=== PATIENT | male | born 1945 | race Caucasian/White ===

== ENCOUNTER 2025-04-28 03:30 | Emergency (ER) | payer MEDICARE, OTHER, SELFPAY ==
--- NOTE | 2025-04-28 04:35 | ED.ALLEREA ---
HPI - Allergic Reaction General Chief complaint: Allergic Reaction Stated complaint: Allergic Reaction History of Present Illness HPI narrative: Patient seen and examined during EMR down time in the emergency department. Please see physical paper charting during down time for complete dictation of patient's care and clinical course. Review of Systems Review of Systems: As reviewed in down time EMR charting Exam Narrative: GENERAL: [Well-appearing, well-nourished, and in no acute distress.] HEAD: [Normocephalic, atraumatic.] EYES: [PERRLA and EOMI.] ENT: Nares clear, no rhinorrhea or epistaxis. Mucous membranes moist. NECK: Supple. CHEST: [Clear to auscultation. No respiratory distress.] HEART: [Regular rate and rhythm]. No murmur heard. [Normal peripheral pulses.] ABDOMEN: [Soft, nondistended], [nontender], [No rigidity or guarding] EXTREMITIES: Normal range of motion. [No edema.] SKIN: Beefy red raised rash around the face anteriorly and frontal scalp. Does not extend to the back of the head or neck, does not extend to the neck. No other urticarial rash anywhere on the body. NEURO: [No focal deficits]. Alert and oriented [x3.] PSYCH: [Normal mood and affect.] MDM - Allergic Reaction MDM Narrative Medical decision making narrative: Patient seen and examined during EMR down time in the emergency department. Please see physical paper charting during down time for complete dictation of patient's care and clinical course. Discharge Plan Discharge Clinical Impression: Contact dermatitis, Allergic reaction Patient Disposition: Home Condition: Stable Instructions: Antibiotic Form, Contact Dermatitis (ED), Acute Rash (ED) Additional Instructions: Continue taking the prednisone once daily for the next 5 days as well as the diphenhydramine cream applied several times a day for itchiness and redness. 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 Return with any worsening or emergent concerns. Patient Language: Guatemalan Prescriptions: New prednisone 50 mg tablet 50 mg PO DAILY 5 Days Qty: 5 0RF Anti-Itch(diphenhyd) with Zinc 1-0.1 % cream 1 applic topical QID PRN (Reason: itching) Qty: 28 0RF Follow-up/Referrals: UNKNOWN,DOCTOR [Non-Staff] Time of Disposition: 05:52
[2025-04-28] MEDS: predniSONE 40 MG, predniSONE 10 MG 50 MG PO (05:19)
[2025-04-28] MEDS: DIPHENHYDRAMINE 1%/ZINC 0.1% CREAM 30 GM TUBE 1 APPLIC TOPICAL (05:20)
[2025-04-28 06:24] VITALS: O2SAT 100
== END 2025-04-28 06:28 | disposition home or self-care (01) ==
PROVIDERS: Emergency Provider Student in an Organized Health Care Education/Training Program
DX: L23.3 Allergic contact dermatitis due to drugs in contact with skin (principal); T49.0X5A Adverse effect of local antifungal, anti-infective and anti-inflammatory drugs, initial encounter
CPT/HCPCS: 99283; A9270; J7512

== ENCOUNTER 2025-06-23 09:36 | Emergency (ER) | payer MEDICARE, OTHER, SELFPAY ==
[2025-06-23] VITALS (31 sets, daily range): BP systolic 100–142; BP diastolic 62–88; PULSE 77–115; RESP 17–28; TEMP 37.5–38.1; O2SAT 87–100
--- NOTE | ~2025-06-23 | CT_ITS ---
EXAM/PROCEDURE: CT abdomen pelvis w con HISTORY: diffuse abd pain, fever COMPARISON: None available. TECHNIQUE: IV contrast enhanced CT of the abdomen and pelvis performed. FINDINGS: Minimal atelectatic or fibrotic changes in the lung bases which are otherwise clear. Heart size normal with no pericardial effusion. Coronary artery calcifications seen. In the abdomen and pelvis, the bowel gas pattern is nonobstructive with no free air free fluid or pneumatosis seen. No hydroureteronephrosis. Several small bilateral renal cysts. Adrenal glands visualized ureters and urinary bladder unremarkable. Indwelling penile prosthesis fluid-filled reservoir in the lateral right pelvis. No grossly inflamed appendix. No AAA. No gross CT evidence of pancreatitis or biliary ductal dilatation. Cholecystectomy. Several small cysts appearing lesions resonance throughout the liver. Stomach is fluid-filled with no gross acute abnormality seen. No bulky mesenteric or retroperitoneal lymphadenopathy or masses seen. Prostate diminutive or removed. Moderate amount of stool extends to the cecum. Fluid-filled small bowel noted which are nondistended. IMPRESSION: No focal acute findings to explain patient's symptoms. Several chronic appearing findings as above. Several small liver cystic appearing lesions most likely represent benign cysts in this patient has known history of malignancy.. Reviewed, dictated and finalized at location A. TERM CARE ADMINISTRATOR IMPRESSION: No focal acute findings to explain patient's symptoms. Several chronic appearin g findings as above. Several small liver cystic appearing lesions most likely r epresent benign cysts in this patient has known history of malignancy..
--- NOTE | ~2025-06-23 | CT_ITS ---
EXAMINATION: CTA chest PE protocol DATE: 06/23/2025 11:55 INDICATION: Rule out PE TECHNIQUE: Computed tomography angiography (CTA) of the chest was performed with 100 mL Omnipaque-350 intravenous contrast timed to evaluate the pulmonary arteries. Coronal maximum intensity projection 3D-reconstructions were created by the technologist. The dose-length product was 850.87 mGy-cm. COMPARISON: None. FINDINGS: Exam somewhat limited with most of the contrast in the left-sided system or aorta, as well as moderately extensive respiratory motion artifact. No central or large pulmonary emboli. Scattered fibrotic and atelectatic changes. Lungs are otherwise clear. Central large airways are patent. Borderline cardiomegaly. No significant pericardial effusion or bulky lymphadenopathy. Degenerative changes throughout the bones. Bones appear intact. No process seen in the visualized portions of the upper abdomen or extrathoracic soft tissues. Low-density lesion measuring 2 cm in the left lobe of the liver image 189 series 3 noted. IMPRESSION: 1. No central or large pulmonary embolus. 2. No gross acute intrathoracic abnormality. 3. Other findings as above. See also report for CT abdomen pelvis and date. Reviewed, dictated and finalized at location A. DESIGNER
--- NOTE | ~2025-06-23 | XR_ITS ---
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 Technique: 2 views obtained. Findings: The lungs are clear, no effusion. No pneumothorax. Heart is normal size. Mediastinal and hilar contours are within normal limits. Bony thorax no acute abnormality. Impression: No acute cardiopulmonary abnormality. Reviewed, dictated and finalized at location P. LINE ASSEMBLER Impression: No acute cardiopulmonary abnormality.
--- NOTE | 2025-06-23 09:39 | ECG_ITS ---
Test Date: 2025-06-23 09:49:55 Measurements Intervals Ovando Rate: 112 P: 14 VA: 194 QRS: -78 QRSD: 104 T: 50 QT: 314 QTc: 430 Interpretive Statements SINUS TACHYCARDIA LEFT AXIS DEVIATION INCOMPLETE RIGHT BUNDLE BRANCH BLOCK POSSIBLE ANTERIOR MYOCARDIAL INFARCTION , OF INDETERMINATE AGE ABNORMAL ECG No previous ECG available for comparison Electronically Signed On 06-23-2025 09:58:34 AIRPORT ATTENDANT by Sergio Urena D.O.
--- NOTE | 2025-06-23 10:02 | ED_ITS ---
HPI - General Adult General Chief complaint: Weakness Stated complaint: shaking all night Time Seen by Provider: 06/23/25 10:01 History of Present Illness HPI narrative: 80-year-old male presents emergency department with generalized body aches and subjective fevers for about 12 hours. He denies any cough or shortness of breath endorses some vague abdominal discomfort and nausea but no vomiting. Denies any urinary symptoms. Endorses chills but no objective fevers. Denies any rashes no headache no sore throat no sick contacts. Patient has a history of high blood pressure seizure disorder [id number] diabetes. No recent changes to his medications. Related Data Allergies Allergy/AdvReac Type Severity Reaction Status Date / Time codeine Allergy Unknown Verified 06/23/25 09:48 Review of Systems 2 Review of Systems: All systems reviewed & are unremarkable except as noted in HPI and below Exam 2 Narrative: EXAMINATION OF ORGAN SYSTEMS/BODY AREAS: Constitutional: Vital signs per nursing, vital signs notable for tachycardia. GENERAL:[No acute distress, non-toxic appearing.] HEAD: Normal with no signs of head trauma. EYES: EOMI, conjunctiva normal ENT: Hearing grossly intact LUNGS: Nonlabored breathing. HEART: Tachy rate regular rhythm brisk cap refill 2+ radial pulses ABD: Abdomen is soft slightly distended moderate reproducible tenderness throughout without any rebound or guarding. No flank tenderness. EXT: Normal range of motion SKIN: [No rashes or lesions.] NEURO: [Alert. No gross focal sensory or strength deficits.] PSYCH: Normal affect Course Vital Signs Vital signs: Vital Signs Temperature 37.6 C H 06/23/25 09:46 Pulse Rate 115 H 06/23/25 09:46 Respiratory Rate 18 06/23/25 09:46 Blood Pressure 139/86 06/23/25 09:46 Pulse Oximetry 93 06/23/25 09:46 Oxygen Delivery Room Air 06/23/25 09:46 Temperature 37.5 C 06/23/25 13:23 Pulse Rate 82 06/23/25 13:16 Respiratory Rate 26 H 06/23/25 13:16 Blood Pressure 125/69 06/23/25 13:16 Pulse Oximetry 96 06/23/25 13:16 Oxygen Delivery Nasal Cannula 06/23/25 10:47 Oxygen Flow Rate 3 06/23/25 10:47 MDM Differential Diagnosis Differential Diagnosis: A 80-year-old male presents with essentially rigors chills generalized fatigue. Given his slight abdominal discomfort and concern for intra-abdominal pathology such as diverticulitis versus perforated viscus versus less likely an obstructive process. Also on the differential is a viral syndrome specifically influenza games for Dr. Carrillo. Obtain viral swabs basic workup blood cultures treat him symptomatically with antipyretics IV fluids and obtain CT abdomen pelvis with IV contrast plan for evaluation after work treatment. Results and multiple re-evaluations Patient's D-dimer was positive I did do a CTA of his chest which was negative for pulmonary embolism. His initial lactic was 5 which I suspect is a type B lactic acidosis. Repeat is normal. He feels much improved and wants to go home he is no longer tachycardic he is no longer required supplemental oxygen. He does have a 10-20 years pack smoking history. I did offer hospital admission for his weakness but he prefers to go home and given systemic symptoms his leukocytosis otorrhea for atypical pneumonia with a Z-Kenny. Strict return precautions discussed and otherwise understands verbalizes not hypoxic on room air his discharge is poor baseline level of health Medical Records I have reviewed the following patient records and this information was taken into consideration when formulating the assessment and plan.: previous labs and previous ER visits Lab Data MDM Lab Attestation statement: I personally reviewed the patient's lab results. 06/23/25 09:59 06/23/25 09:59 Labs: Lab Results 06/23/25 06/23/25 06/23/25 Range/Units 09:59 12:10 12:18 WBC 6.0 (4.5-10.0) K/mm3 RBC 5.88 (4.6-6.20) M/mm3 Hgb 17.4 (14.0-18.0) g/dL Hct 49.9 (42.0-52.0) % MCV 84.9 (80-100) fl MCH 29.6 (26-34) pg MCHC 34.9 (32-36) g/dl RDW 13.8 (11.5-14.5) % Plt Count 185 (150-375) k/mm3 MPV 11.1 H (7.4-10.4) fl Immature Gran % (Auto) 0.3 (0-0.5) % Neut % (Auto) 84.8 H (45.5-73.1) % Lymph % (Auto) 13.1 L (18.3-44.2) % Bucks % (Auto) 1.3 L (2.6-8.5) % Eos % (Auto) 0.2 (0-4.4) % Baso % (Auto) 0.3 (0.2-1.2) % Lymph # (Auto) 0.78 L (0.9-3.2) K/mm3 Bucks # (Auto) 0.1 (0.1-0.6) K/mm3 Eos # (Auto) 0.0 (0-0.3) K/mm3 Baso # (Auto) 0.0 (0.0-0.1) K/mm3 Abs Immat Gran (auto) 0.02 (0.00-0.031) K/mm3 Absolute Neuts (auto) 5.1 (1.3-6.7) K/mm3 Absolute Nucleated RBC 0.000 (0.0-0.012) K/mm3 Nucleated RBC % 0.0 (0.0-0.2) % D-Dimer 0.91 H (<0.48) ug/mL Sodium 139 (137-145) mmol/L Potassium 3.9 (3.4-5.0) mmol/L Chloride 101 (98-107) mmol/L Carbon Dioxide 26 (22-30) mmol/L Anion Gap 12 (4-12) mmol/L BUN 18 (9-20) mg/dL Creatinine 1.19 (0.7-1.3) mg/dL Estim Creat Clear Calc 51 ml/min Estimated GFR 59 (59 - ) Glucose 166 H (65-110) mg/dL Lactic Acid 5.3 H* 1.9 (0.7-2.0) mmol/L Calcium 9.8 (8.4-10.2) mg/dL Total Bilirubin 1.0 (0.2-1.3) mg/dL AST 39 (17-59) U/L ALT 60 H (6-50) U/L Alkaline Phosphatase 71 (38-126) U/L Total Protein 7.8 (6.3-8.2) g/dL Albumin 4.9 (3.5-5.1) g/dL Urine Color Yellow (Yellow) Urine Appearance Clear (Clear) Urine pH 5.0 (5.0-9.0) Ur Specific Ruso > 1.045 H (1.001-1.035) Urine Protein Negative (Negative) mg/dL Urine Glucose (UA) 3+ H (Negative) mg/dL Urine Ketones 2+ H (Negative) mg/dL Ur Blood (Man) Negative (Negative) Urine Nitrate Negative (Negative) Urine Bilirubin Negative (Negative) Urine Urobilinogen 0.2 (<2.0) mg/dL Leukocyte Esterase Rfl Negative (Negative) YARA/UL Influenza A (RT-PCR) Negative (Negative) Influenza B (RT-PCR) Negative (Negative) RSV (RT-PCR) Negative (Negative) SARS-CoV-2 RNA (RT-PCR) Negative (Negative) Imaging Data Attestation: I personally reviewed and interpreted this imaging study as follows: My impression: Chest x-ray shows no evidence of focal infiltrate or free air. Normal cardiac silhouette per my interpretation. Radiologist's impression: ITS Impressions Chest X-Ray 06/23/25 10:20 Impression: No acute cardiopulmonary abnormality. Abdomen/Pelvis CT 06/23/25 11:06 IMPRESSION: No focal acute findings to explain patient's symptoms. Several chronic appearing findings as above. Several small liver cystic appearing lesions most likely represent benign cysts in this patient has known history of malignancy.. Chest CTA 06/23/25 11:59 IMPRESSION: 1. No central or large pulmonary embolus. 2. No gross acute intrathoracic abnormality. 3. Other findings as above. See also report for CT abdomen pelvis and date. ECG Data EKG #1: Attestation: I personally reviewed and interpreted this ECG as follows: Interpretation: Twelve lead EKG per my interpretation shows sinus tachycardia rate 112 beats per minute. Left axis deviation. Incomplete right bundle-branch block. Otherwise no evidence of ST segment elevation or depression. Overall impression abnormal EKG no prior for comparison. Discharge Plan Discharge Clinical Impression: Weakness, Fever, Walking pneumonia Patient Disposition: Home Condition: Stable Instructions: Antibiotic Form, Community Acquired Pneumonia (ED), Fatigue (ED) Patient Language: Bahraini Prescriptions: New azithromycin 250 mg tablet See Rx Instructions .ROUTE .COMPLEX Qty: 6 0RF Rx Instructions: For 250 mg dose pack: take 500 mg today (day 1), then 250 mg for 4 days (days 2-5) No Action prednisone 50 mg tablet 50 mg PO DAILY 5 Days Qty: 5 0RF Anti-Itch(diphenhyd) with Zinc 1-0.1 % cream 1 applic topical QID PRN (Reason: itching) Qty: 28 0RF Follow-up/Referrals: PHYSICIAN NOT ON STAFF,NONSTAFF [Non-Staff] Time of Disposition: 14:05
[2025-06-23 10:09] LABS: Hematocrit 49.9 % (42.0-52.0); Hemoglobin 17.4 g/dL (14.0-18.0); Immature Granulocyte Percent A 0.3 % (0-0.5); Lymphocytes Absolute Auto 0.78 K/mm3 (0.9-3.2); Mean Corpuscular HGB Conc 34.9 g/dl (32-36); Mean Corpuscular Hemoglobin 29.6 pg (26-34); Mean Corpuscular Volume 84.9 fl (80-100); Nucleated Red Blood Cells Absolute Auto 0.000 K/mm3 (0.0-0.012); Nucleated Red Blood Cells Perc 0.0 % (0.0-0.2); Platelet Count Result 185 k/mm3 (150-375); Red Blood Count 5.88 M/mm3 (4.6-6.20); White Blood Count 6.0 K/mm3 (4.5-10.0)
[2025-06-23 10:22] LABS: Alanine Aminotransferase 60 U/L (6-50); Albumin Level 4.9 g/dL (3.5-5.1); Alkaline Phosphatase 71 U/L (38-126); Anion Gap 12 mmol/L (4-12); Aspartate Amino Transferase 39 U/L (17-59); Bilirubin,Total 1.0 mg/dL (0.2-1.3); Blood Urea Nitrogen 18 mg/dL (9-20); Calcium 9.8 mg/dL (8.4-10.2); Carbon Dioxide 26 mmol/L (22-30); Chloride 101 mmol/L (98-107); Estimated CRCL calculation 51 ml/min; Estimated Glomerular Filt Rate 59; Glucose 166 mg/dL (65-110); Potassium 3.9 mmol/L (3.4-5.0); Sodium 139 mmol/L (137-145); Total Protein 7.8 g/dL (6.3-8.2)
[2025-06-23 10:43] LABS: Influenza A QL RT-PCR Negative (Negative); Influenza B QL RT-PCR Negative (Negative); RSV RNA, RT-PCR Negative (Negative); SARS-CoV-2 RNA PCR Negative (Negative)
[2025-06-23] MEDS: SODIUM CHLORIDE 0.9% IV 1,000 ML 999 ML IV CONT (11:19)
[2025-06-23] MEDS: KETOROLAC 30 MG/ML VIAL (*BKC) IV PUSH (11:19)
[2025-06-23] MEDS: ACETAMINOPHEN 500 MG TABLET 1000 MG PO (12:09)
[2025-06-23 12:26] LABS: Add Urine Microscopic? NO; Appearance Urine Clear (Clear); Glucose Urine UA 3+ mg/dL (Negative); Leukocyte Esterase Ur Negative LEU/UL (Negative); Nitrate Urine Negative (Negative); Specific Grav Ur > 1.045 (1.001-1.035)
== END 2025-06-23 15:47 | disposition home or self-care (01) ==
PROVIDERS: Emergency Provider Emergency Medicine; PCP Student in an Organized Health Care Education/Training Program
DX: J18.9 Pneumonia, unspecified organism (principal); R53.1 Weakness; Z20.822 Contact with and (suspected) exposure to COVID-19; I10 Essential (primary) hypertension; E11.9 Type 2 diabetes mellitus without complications; G40.909 Epilepsy, unspecified, not intractable, without status epilepticus; Z87.891 Personal history of nicotine dependence; R00.0 Tachycardia, unspecified; I45.10 Unspecified right bundle-branch block; R94.31 Abnormal electrocardiogram [ECG] [EKG]; K86.9 Disease of pancreas, unspecified; K76.9 Liver disease, unspecified
CPT/HCPCS: 36415; 71046; 71275; 74177; 80053; 81003; 83605; 85025; 85380; 87637; 93005; 96361; 96374; 99284; A9270; J1885; J7030; Q9967

== ENCOUNTER 2025-06-24 14:44 | Inpatient (IN) | payer MEDICARE, OTHER, SELFPAY ==
[2025-06-24] VITALS (18 sets, daily range): BP systolic 89–162; BP diastolic 52–90; PULSE 67–153; RESP 14–35; TEMP 36.5–37.8; O2SAT 89–97; BMI 33.3
--- NOTE | ~2025-06-24 | MR_ITS ---
EXAMINATION: MR MRCP wo con/w 3D wo ind pp DATE: 06/25/2025 12:40 INDICATION: Cystic pancreatic lesion. TECHNIQUE: Magnetic resonance imaging (MRI) of the abdomen was performed without intravenous contrast. Thick-slab T2-weighted FSE images were obtained for magnetic resonance cholangiopancreatography (MRCP). Maximum intensity projection 3-D reconstructions of the volumetric data were created by the technologist. COMPARISON: CT 06/24/2025 FINDINGS: ABDOMEN MRI: There is diffuse hepatic steatosis. There are cysts in the liver measuring up to 9 mm. There is a 2.1 cm cystic mass with a dependent material in left hepatic lobe. The gallbladder is absent. The spleen is normal. There is a 10 mm cyst in the tail of the pancreas. The adrenal glands are normal. There are cysts in the kidneys measuring up to 14 mm on the left. There is a 10 mm hemorrhagic cyst in right kidney. There are no dilated loops of bowel. There are no pathologically enlarged lymph nodes. There is no free intraperitoneal fluid. ABDOMEN MRCP: The common duct is normal and measures 5 mm. No choledocholithiasis. IMPRESSION: 1. Diffuse hepatic steatosis. 2. 2.1 cm cystic mass in left hepatic lobe. The differential diagnosis includes abscess, hemorrhagic cyst, and metastatic disease. 3. 10 mm low-risk cystic lesion of the pancreas, likely benign. Reviewed, dictated and finalized at location E. TURNER
--- NOTE | ~2025-06-24 | XR_ITS ---
EXAMINATION: XR chest 1V portable COMPARISON: No comparisons available. HISTORY: sepsis? FINDINGS: The lungs are clear, no effusion. No pneumothorax. Heart is normal size. Mediastinal and hilar contours are within normal limits. Bony thorax no acute abnormality. Miscellaneous: None Impression: No acute cardiopulmonary abnormality. Reviewed, dictated and finalized at location P. UREMENT ANALYST Impression: No acute cardiopulmonary abnormality.
--- NOTE | ~2025-06-24 | CT_ITS ---
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 TECHNIQUE: CTA scan with 3D Reconstructions of the chest, abdomen and pelvis was performed with contrast Isovue 300, 92cc injected IV. One or more of the following dose reduction techniques were used: automated exposure control, adjustment of the mA and/or kV according to patient size, use of iterative reconstruction technique. Unless otherwise stated, incidental findings do not require dedicated follow up imaging FINDINGS: CT chest: No significant coronary calcification is present ([id number]) LUNGS: No tracheomalacia. No bronchiectasis. Minimal emphysematous changes. No significant pulmonary fibrotic changes. No contusion or pneumothorax. Contrast bolus is limited but there is no gross central pulmonary embolism identified. Punctate calcified splenic granulomas. HEART AND PERICARDIUM: Within normal limits. AORTA: There are atherosclerotic changes of the aorta without dissection. MEDIASTINUM: Unremarkable. THYROID: The thyroid is unremarkable. CT abdomen: LIVER: Nonspecific mild heterogeneity of the liver. Within the left lobe liver there is a complex lesion measuring 2 x 2.5 cm with suggestion of peripheral enhancement. SPLEEN: Heterogeneity of the spleen.. KIDNEYS: Right Kidney: Unremarkable. No calculi. No hydronephrosis. Left Kidney: Left kidney midpole simple appearing renal cyst 1 x 1 cm. ADRENAL GLANDS: Unremarkable. PANCREAS: Within the pancreatic tail there is a cystic lesion measuring 5 x 6 mm. Mild atrophy of the pancreas. GALLBLADDER/BILIARY: Post cholecystectomy. STOMACH AND ESOPHAGUS: Small hiatal hernia. The stomach is decompressed. BOWEL/MESENTERY: Moderate fecal content. Moderate diverticulosis. No colitis or diverticulitis. Appendix normal. Mesentery normal. No thickened or dilated loops of small bowel. RETROPERITONEUM: Unremarkable AORTA/VASCULATURE: Normal caliber aorta. No dissection. The major aortic tributaries appear unremarkable. FREE FLUID OR FREE AIR: No free fluid.. CT pelvis: SOLID ORGANS/REPRODUCTIVE: Post prostatectomy. BLADDER: Within normal limits. LYMPHADENOPATHY: No lymphadenopathy. OSSEOUS STRUCTURES: There are no sclerotic or lytic lesions identified. OVERLYING SOFT TISSUES: Small fat-containing umbilical hernia. The soft tissues demonstrate partially imaged probable penile prosthetic implant. IMPRESSION: 1. Complex left lobe liver lesion, no abscess is not excluded. 2. 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 There is no evidence of pancreatitis. 3. Contrast-enhanced MRI is recommended to assess Reviewed, dictated and finalized at location P. BED KNITTER
--- OUTSIDE RECORDS SUMMARY | 2025-06-24 14:46 | XMS_ITS | Encounter Summary ---
Author Organization [facility] Address [address] [place] [address] Phone Care Team Providers Care Storage Architect Name Role Phone Rosalie Valencia APRN, CLIENT APPLICATION SUPPORT SPECIALIST Primary Care P rovashtider Roni Arevalo APRN, CLIENT APPLICATION SUPPORT SPECIALIST Unavailable Fili Márquez MD Unavailable [phone] Tung Connelly PAC Unavailable [phone] Reason for Visit * Reason Comments Medication Refill Encounter Details Date Type Department Care Team (Late st Contact Info) Description 08/20/2020 Refill [facility] [address] [place] [address] Billie Solorzano Milady, PAC [address] [place] [address] Medication Refill Social History Tobacco Use Types Packs/Day Years Used Date Smoking Tobacco: Former Cigarettes 1 23 1 08/19/1961 - 12/25/1984 Smokeless Tobacco: Never Alcohol Use Standard Drinks/Week Comments No 0 (1 standard drink = 0.6 oz pur e alcohol) PHQ-2 Answer Date Recorded Total Score - Questions 1-9 0 10/11 Education Answer Date Recorded What is the highest level of school you have completed or the highest degree you have received? 12th grade 06/11/2020 Sexually Active Control Partners Comments Not Currently Female Sex and Gender Information Value Date Recorded Sex Assigned at Not on file Legal Sex Male 7:56 PM CDT Gender Identity Male 04/28/2023 6:50 PM CDT Sexual Orientation Straight 04/28/2023 6: 50 PM CDT documented as of this encounter Miscellaneous Notes * Telephone Encounter - Antwan Davison CMA - 08/20/2020 9:39 AM JUNIOR BUSINESS ANALYST Not a GI medication, forwarded to primary OR BUSINESS ANALYST documented in this encounter Plan of Treatment Upcoming Encounters Date Type Department Care Team (Late st Contact Info) Description 03/16/2026 2:00 PM CDT Office Visit [facility] [address] [place] [address] Fili Márquez MD [address] [address] documented as of this encounter Visit Diagnoses Diagnosis Mixed hyperlipidemia documented in this encounter Additional Health Concerns Assessment Noted Time PHQ-9 Depression Total Score: 0 10/21/19 20 10:00 AM CDT documented as of this encounter Care Teams Storage Architect Relationship Specialty Start Date End Date Rosalie Valencia APRN, CNP [address] [place] [address] PCP - General Advanced Practice Nurse 06/12/20 Roni Arevalo APRN, CNP [address] [place] [address] Nurse Practitioner Advanced Practice Nurse 08/19/22 Fili Márquez MD [address] [address] Consulting Physician Urology 10/28/22 Tung Connelly, PAC [address] [address] Physician Pediatric Registered Nurse Physician Pediatric Registered Nurse 11/25/23 documented as of this encounter
--- OUTSIDE RECORDS SUMMARY | 2025-06-24 14:46 | XMS_ITS | Clinical Summary ---
Author Organization [facility] Address [address] [facility], [facility] [address] [place] [address] Phone Care Team Providers Care Cruise Director Name Role Phone Rosalie Valencia APRN, ENDS DOWN CHECKER Primary Care P rovider Roni Arevalo APRN, ENDS DOWN CHECKER Unavailable Fili Márquez MD Unavailable [phone] Tung Connelly PAC Unavailable [phone] Allergies Active Allergy Reactions Criticality Noted Date Comments Codeine Other (see Comments) Medium 08/11/2016 Feels weird Medications calcium 500 MG Tablet Take 500 mg by mouth daily. Active Aspirin 81 MG Tablet Take 81 mg by mouth daily. Active diphenhydrAMINE (BENADRYL) 25 MG Capsule Take 25 mg by mouth nightly. Active fluticasone (FLONASE) 50 MCG/ACT SuspensionIndicati ons:Right ear pain,Sinus congestion 1-2 Sprays by Nasal route daily. Use in each nostril as directed. 15.8 mL 1 03/05/20 Active Additional Information Patient taking differently:1-2 [place] NasalDAILY PRN, Use in each nostril as directed., Reported on 03/10/2025 propranolol (INDERAL) 10 MG TabletIndications: Anxiety Take 1 Tablet by mouth 3 times daily as needed for Other (Anxiety). 90 Tablet 06/17/20 22 Active Additional Information Patient taking differently:10 mg OralPRN, Other, Anxiety, Reported on 03/10/2025 Multiple Vitamin (MULTIVITAMIN PO) Take by mouth. Active docusate sodium (Colace) 100 MG Capsule Take 1 Capsule by mouth 2 times daily. 60 Capsule 01/10/20 23 Active famotidine (PEPCID) 40 MG Tablet Take 40 mg by mouth daily. 01/25/20 24 Active celecoxib (CeleBREX) 100 MG Capsule Take 1 Capsule by mouth daily. 90 Capsule 1 03/18/20 24 Active atorvastatin (LIPITOR) 20 MG TabletIndications: Mixed hyperlipidemia Take 1 Tablet by mouth daily. 90 Tablet 1 03/18/20 24 Active amLODIPine (NORVASC) 5 MG TabletIndications: Primary hypertension Take 1 Tablet by mouth daily. 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 HTN (hypertension) 08/11/2016 Moderate obesity 08/11/2016 Hyperglycemia 08/11/2016 Resolved Problems Problem Noted Date Diagnosed Date Resolved Date Acute biliary pancreatitis w ithout infection or necrosis 06/18/2020 01/29/2022 Acute cholecystitis 06/18/2020 01/30/20 22 BMI 34.0-34.9,adult 05/05/2018 01/30/20 22 Prostate cancer 12/11/2017 06/05/2021 Immunizations Immunization Administration Dates Next Due Covid-19, Mrna, Lnp-s, Bival ent, Moderna, 50 Mcg or 25 mcg dose 03/19/2022 Covid-19, Mrna, Lnp-s, PF, 1 00 mcg/0.5 mL Dose (Moderna) 10/15/2021,09/22/2020,08/25/2020 Influenza Vaccine greater than 3 yrs 04/12/2021 Influenza Vaccine, Quadrivalent, PF 04/19/2020,0 04/02/2019,04/19/2018 Influenza, High-dose, Quadrivalent 04/12/2021 Influenza, Quadrivalent, Adjuvanted 04/20/2023,0 03/19/2022 Influenza, Trivalent, Adjuvanted, PF 03/17/2024 Influenza, high-dose, trivalent, PF 04/07/2017,1 ,04/13/2015 PUR FLU HIGH DOSE (FLUZONE) 08/11/2016 Pneumococcal Vaccine - 13 Valent 04/17/2015,04/12 Pneumococcal Vaccine Adult - 23 Valent 1,04/21/2010,05/02/2005 Pneumococcal conjugate PCV20 , polysaccharide [id number] conjugate, adjuvant, PF 10/26/2023 TDAP Vaccine 05/05/2018 Zoster Vaccine Recombinant 12/04/2023,09/07/2023 Zoster Vaccine, live 05/07/2012 Family History Medical History Relation Name Comments No Known Problems Daughter 1 No Known Problems Daughter 2 Prostate Cancer Father Skin Cancer Father No Known Problems Maternal Grandfather No Known Problems Maternal Grandmother Diabetes Mother Heart Disease Mother No Known Problems Other No Known Problems Paternal Grandfather No Known Problems Paternal Grandmother Colon Cancer Paternal Uncle Breast Cancer Sister 1 No Known Problems Sister 2 No Known Problems Sister 3 No Known Problems Son 1 No Known Problems Son 2 No Known Problems Son 3 Relation Name Status Comments Daughter 1 Alive Daughter 2 Alive Father Maternal Grandfather Maternal Grandmother Mother Other Paternal Grandfather Paternal Grandmother Paternal Uncle Sister 1 Alive Sister 2 Alive Sister 3 Alive Son 1 Alive Son 2 Alive Son 3 Alive Social History Tobacco Use Types Packs/Day Years Used Date Smoking Tobacco: Former Cigarettes 1 23 1 08/19/1961 - 12/25/1984 Smokeless Tobacco: Never Tobacco Cessation:Counseling Given: Not Answered Alcohol Use Standard Drinks/Week Comments No 0 (1 standard drink = 0.6 oz pur e alcohol) [facility] Utilities Answer Date Recorded In the past 12 months has e [employer], gas, oil, or water company threatened to shut off services in your home? No 09/05/2023 Social Connection and Isolation Panel Answer Date Recorded In a typical week, how many times do you talk on the phone with family, friends, or neighbors? More than three times a week 09/05/2023 How often do you get togethe r with friends or relatives? Three times a week 09/05/2023 How often do you attend chur or anglican services? More than 4 times per year 09/05/2023 Do you belong to any clubs o r organizations such as congregation groups, unions, fraternal or athletic groups, or school groups? Yes 09/05/2023 How often do you attend meet ings of the clubs or organizations you belong to? More than 4 times per year 09/05/2023 Are you , , di vorced, , never , or living with a partner? 09/05/2023 AUDIT-C Answer Date Recorded Q1: How often do you have a drink containing alcohol? Monthly or less 09/05/2023 Q2: How many drinks containi ng alcohol do you have on a typical day when you are drinking? Patient does not drink Q3: How often do you have si x or more drinks on one occasion? Never 09/05/2023 Overall Financial Resource Strain (CARDIA) Answe r Date Recorded How hard is it for you to pa y for the very basics like food, housing, medical care, and heating? Not hard at all 09/05/2023 PHQ-2 Answer Date Recorded Total Score - Questions 1-9 0 10/11 [facility] - Occupational Stress Questionnaire Answer Date Recorded Do you feel stress - tense, restless, nervous, or anxious, or unable to sleep at night because your mind is troubled all the time - these days? Only a little 09/05/2023 Exercise Vital Sign Answer Date Recorde d On average, how many days pe r week do you engage in moderate to strenuous exercise (like a brisk walk)? 6 days 09/05/2023 On average, how many minutes do you engage in exercise at this level? 30 min 09/05/2023 Hunger Vital Sign Answer Date Recorded Within the past 12 months, y ou worried that your food would run out before you got the money to buy more. Never true 09/05/19 Within the past 12 months, t he food you bought just didn't last and you didn't have money to get more. Never true 09/05/2023 PRAPARE - Transportation Answer Date Re corded In the past 12 months, has l ack of transportation kept you from medical appointments or from getting medications? No 08/14 In the past 12 months, has l ack of transportation kept you from meetings, work, or from getting things needed for daily living? No 09/05/2023 Housing Stability Vital Sign Answer Jorge L e Recorded In the last 12 months, was t here a time when you were not able to pay the mortgage or rent on time? No 09/05/2023 In the last 12 months, how many places have you lived? 1 09/05/2023 In the last 12 months, was t here a time when you did not have a steady place to sleep or slept in a nursing home (including now)? No 09/05/2023 Education Answer Date Recorded What is the [...] Orientation Straight 04/28/2023 6: 50 PM CDT Last Filed Vital Signs Vital Sign Reading Time Taken Comments Blood Pressure 139/75 03/10/2025 1:58 PM CDT Pulse 79 03/10/2025 1:58 PM CDT Temperature 36.9 C (98.4 F) 03/17/2024 9:26 AM CDT Respiratory Rate 18 03/10/2025 1:58 PM CDT Oxygen Saturation 98% 03/10/2025 1:58 PM CDT Inhaled Oxygen Concentration - - Weight 100.7 kg (222 lb) 03/10/2025 1:58 PM CDT Height 175.3 cm (5' 9) 03/10/2025 1:58 PM CDT Body Mass Index 32.78 03/10/2025 1:58 PM CDT Plan of Treatment Upcoming Encounters Date Type Department Care Team (Late st Contact Info) Description 03/16/2026 2:00 PM CDT Office Visit [facility] [address] [place] [address] Fili Márquez MD [address], [facility] [address] [place] [id number] Health Maintenance Due Date Last Done Comments Medicare Initial AWV [id number] 01/10/2010 Influenza Immunization (#1) 2025 09/0 11/2023, 04/20/2023, 03/19/2022, Additional history exists SARS-COV-2 Immunization (2024- season) 2025 02/25/2025, 10/11/2024, 04/04/2024, Additional history exists Td Immunization Every 10 Years (Adults With 1 Tdap) 09/07/2034 09/07/2024, 05/05/2018 Pneumococcal Immunization (50+ years) Completed 10/26/2023, 04/17/2015, 04/21/2014, Additional history exists Pneumococcal Immunization Combined Discontinued 10/26/2023, 04/17/2015, 04/21/2014, Additional history exists Zoster Immunization Completed 12/04/2023, 09/07/2023, 05/07/2012 Hepatitis C Virus (HCV) Screening Completed 03/07/2024 Respiratory Syncytial Virus (RSV) Immunization (Adult) Completed 07/14/2024 Hepatitis B Immunization Aged Out No longer eligible based on patient's age to complete this topic Human Papillomavirus (HPV) Immunization (No Doses Required) Completed Meningococcal Immunization (ACWY) Aged Out No longer eligible based on patient's age to complete this topic Rotavirus Immunization Aged Out No lo nger eligible based on patient's age to complete this topic Medical Devices Implanted Type Area Dedenter Device Identifier Shelf Expiration Date Model / Serial / Lot Prosthesis Penile Ams 700 Ms Pump Conceal Inflatable Flat [place] Preconnect Inhibizone Strl Disp - [id number] Implanted:Qty: 1 on 01/09/2023 by Fili M[facility]quez MD at [facility] IMPLANT N/A: Penis [employer] 11/02/2024 [id number] / [id number] / [id number] Ams 700 Accessory Kit Implanted:Qty: 1 on 01/09/2023 by Fili Márquez MD at [facility] N/A: Penis [employer] 12/25/2027 [id number] / [id number] / [id number] Ams 700 Cx Ms Pump Implanted:Qty: 1 on 01/09/2023 by [facility] N/A: Penis [employer] 10/01/2024 [id number] / [id number] / [id number] Rear Tip Non Destructive Evaluation Manager Implanted:Qty: 1 on 01/09/2023 by [facility] N/A: Penis [employer] 07/17/2027 [id number] / [id number] / [id number] Procedures Procedure Name Priority Date/Time Associated Diagnosis Comments HEPATITIS C ANTIBODY Routine 03/07/2024 8:05 AM CDT Encounter for HCV screening test for low risk patient from Last 3 Months or Most Recently Relevant to Health Maintenance Results * HEPATITIS C ANTIBODY (03/07/2024 8:05 AM CDT) hepatitis C antibody 0.07 <1 S/CO 03/07/2024 10:03 PM CDT [facility] Comment: Signal/Cutoff ratio < 0.79 is Nondetected Signal/Cutoff ratio 0.80-0.99 is Grayzone Signal/Cutoff ratio > 0.99 is Detected Supplemental assays are recommended if signal/cutoff ratio is >/=1.00. Signal/cutoff ratio result >/= 5.00 is 97% predictive of positivity for recombinant immunoblot assay (RIBA) and will be reported to the [place] Department of Public Health as required. Blood Venipuncture / Unknown 03/07/2024 8:05 AM CDT 03/07/2024 8:05 AM CDT us Rosalie Valencia APRN, CNP CHEMISTRY ORDER ROBERTO Final Result [facility] [address] [place] [address], [place] from Last 3 Months or Most Recently Relevant to Health Maintenance Insurance MEDICARE RAILOmmven [facility] Advance Directives * Full Code (Latest Code Status on File) Date Activated Date Inactivated Comments 06/18/2020 4:01 AM 06/22/2020 3:05 PM CPR-Full Tr eatment: FULL ARREST: Attempt Resuscitation/CPR wit intubation and mechanical ventilation. PRE-ARREST: Use entire range of life support measures to stabilize the patient. Care Teams Cruise Director Relationship Specialty Start Date End Date Rosalie Valencia APRN, ENDS DOWN CHECKER [address] [place] [address] PCP - General Advanced Practice Nurse 06/12/20 Roni Arevalo APRN, CNP [address] [place] [address] Nurse Practitioner Advanced Practice Nurse 08/19/22 Fili Márquez MD [address], [facility] [address] [place] [address] Consulting Physician Urology 10/28/22 Tung Connelly PAC [address], [facility] [address] [place] [address] Physician Bearing Inspector Physician Bearing Inspector 11/25/23
--- OUTSIDE RECORDS SUMMARY | 2025-06-24 14:46 | XMS_ITS | Encounter Summary ---
Author Organization [facility] Address [address] [place] [address] Care Team Providers Care Pumpman Name Role Phone Zenaida Logan MD Primary Care Provider + Fili Márquez MD Unavailable Encounter Details Date Type Department Care Team (Late st Contact Info) Description 05/26/2025 [employer] Message Enc [facility] Medical Group Family Medicine - [place] [address] [place] [address] Zenaida Logan MD [address] [place] [address] Glucose Social History Tobacco Use Types Packs/Day Years Used Date Smoking Tobacco: Former Cigarettes 1.5 15 Q uit: 01/11/1980 Passive Smoke Exposure: Past Smokeless Tobacco: Never Alcohol Use Standard Drinks/Week Comments Not Currently 0 (1 standard drink = 0.6 oz pur e alcohol) few times per year AUDIT-C Answer Date Recorded Q1: How often do you have a drink containing alc ohol? Monthly or less 12/10/2024 Q2: How many drinks containi ng alcohol do you have on a typical day when you are drinking? 1 or 2 12/10/2024 Q3: How often do you have si x or more drinks on one occasion? Never 12/10/2024 PHQ-2 Answer Date Recorded Patient Health Questionnaire-2 Score 0 12/10/2024 Sex and Gender Information Value Date Recorded Sex Assigned at Male 05/06/2024 1:01 PM CDT Legal Sex Male 10:10 AM CDT Gender Identity Male 05/06/2024 1:01 PM CDT Sexual Orientation Straight 05/06/2024 1: 01 PM CDT documented as of this encounter Progress Notes * Zenaida Logan MD - 05/26/2025 3:37 PM CST Addressed in result note CASER documented in this encounter Plan of Treatment Upcoming Encounters Date Type Department Care Team (Late st Contact Info) Description 06/27/2025 8:30 AM SHOE CASER Office Visit [address] [address] Zenaida Logan MD [address] [address] 07/17/2025 11:00 AM SHOE CASER Office Visit [facility] - [address], [address] [place] [phone] Luna Guerrier MD [address] [place] [address] [address] [place] [address] 09/01/2025 10:50 AM SHOE CASER Office Visit [facility] [address] [place] [address] Zenaida Logan MD [address] [place] [address] 11/07/2025 8:00 AM CDT Office Visit [facility] - [address], [address] [place] [phone] Luna Guerrier MD [address] [facility] [address] [place] [address] 12/19/2025 8:10 AM CDT Office Visit [facility] Medical [facility] Family Medicine - [address] [place] [address] Zenaida Logan MD [address] [place] [address] 12/19/2025 8:30 AM CDT Office Visit [facility] - [address] [place] [address] Zenaida Logan MD [address] [facility] [address] [place] [phone] documented as of this encounter Visit Diagnoses Not on filedocumented in this encounter Additional Health Concerns Assessment Noted Time PHQ-9 Depression Total Score: 1 12/11/19 10:08 AM CDT documented as of this encounter Care Teams Pumpman Relationship Specialty Start Date End Date Zenaida Logan MD [address] [place] [address] [place] [address] PCP - General FAMILY PRACTICE 05/18/24 Fili Márquez MD 3 [facility] [address] [place] [address] Consulting Physician UROLOGY 12/12/24 [facility] - Vern Mcclure [address] [place] [address] [place] [address] 12/04/24 documented as of this encounter
--- OUTSIDE RECORDS SUMMARY | 2025-06-24 14:46 | XMS_ITS | Encounter Summary ---
Author Organization [facility] Address [address] [place] [address] Care Team Providers Care Typesetter Apprentice Name Role Phone Zenaida Logan MD Primary Care Provider + Fili Márquez MD Unavailable Encounter Details Date Type Department Care Team (Late st Contact Info) Description 05/26/2025 Results Follow-Up [facility] Medical Group Family Medicine - [place] [address] [place] [phone] Zenaida Logan MD [address] [place] [phone] KEPPRA LEVEL, BASIC METABOLIC PANEL Social History Tobacco Use Types Packs/Day Years [...] PM CDT documented as of this encounter Plan of Treatment Upcoming Encounters Date Type Department Care Team (Late st Contact Info) Description 06/27/2025 8:30 AM GLUER MACHINE SETUP OPERATOR Office Visit [address] [address] Zenaida Logan MD [address] [facility] [address] [place] [address] 07/17/2025 11:00 AM GLUER MACHINE SETUP OPERATOR Office Visit [facility] - [address], [address] [place] [phone] Luna Guerrier MD [address] [place] [address] [address] [place], [place] [id number] 09/01/2025 10:50 AM GLUER MACHINE SETUP OPERATOR Office Visit [address] [address] Zenaida Logan MD [address] [facility] [address] [place] [address] 11/07/2025 8:00 AM CDT [facility] [place] [address] [facility], [address] [place] [address] Luna Guerrier MD [address] [place] [address] [address] [place] [address] 12/19/2025 8:10 AM CDT Office Visit [address] [place] [address] Zenaida Logan MD [address] [facility] [address] [place] [address] 12/19/2025 8:30 AM CDT Office Visit [facility] Medical Group Family Medicine - [place] [address] [facility] [address] [place] [address] Zenaida Logan MD [address] [facility] [address] [place] [address] documented as of this encounter Visit Diagnoses Diagnosis Prediabetes- Primary Other abnormal glucose documented in this encounter Additional Health Concerns Assessment Noted Time PHQ-9 Depression Total Score: 1 12/11/19 10:08 AM CDT documented as of this encounter Care Teams Typesetter Apprentice Relationship Specialty Start Date End Date Zenaida Logan MD [address] [address] PCP - General FAMILY PRACTICE 05/18/24 Fili Márquez MD 3 [facility] [address] [place] [address] Consulting Physician UROLOGY 12/12/24 [facility] - [place]cl[place] [address] [place] [address] [place] [address] 12/04/24 documented as of this encounter
--- OUTSIDE RECORDS SUMMARY | 2025-06-24 14:46 | XMS_ITS | Clinical Summary ---
Author Organization [facility] Address [address] [place] [address] Care Team Providers Care Steam Bone Press Tender Name Role Phone Zenaida Sanchez MD Primary Care Provider + Fili Márquez MD Unavailable Allergies Active Allergy Reactions Criticality Noted Date Comments Codeine Other (see comment) Medium 08/11/2016 Feels weird Patient states it makes him feel kind of loopy. Medications aspirin EC (ASPIR-LOW) 81 MG tablet Take 1 tablet (81 mg total) by mouth daily. 0 Active Calcium Carb-Cholecalcif abram (CALCIUM 1000 + D) 1000-20 MG-MCG Tab Active famotidine (PEPCID) 20 MG tablet Take 1 tablet (20 mg total) by mouth 2 (two) times daily. Active diphenhydrAMINE (BENADRYL) Active Cetirizine HCl (ZYRTEC ALLERGY) 10 MG Cap Active multiple vitamins-mineral s (OCUVITE ADULT 50+) Cap Active fluticasone propionate (FLONASE) 50 MCG/ACT nasal spray 1 spray by Nasal route daily. Active celecoxib (CELEBREX) 100 MG capsuleIndicatio ns:Osteoarthriti s, generalized Take 1 capsule (100 mg total) by mouth daily. 90 capsule 3 5 026 Active Multiple Vitamins-Mineral s (EYE VITAMINS) Cap Take 1 capsule by mouth daily. Active Docusate Sodium (STOOL SOFTENER OR) Take 1 capsule by mouth daily. Active melatonin 5 MG tablet Take 1 tablet (5 mg total) by mouth nightly as needed. Active metFORMIN ER (GLUCOPHAGE-XR) 500 MG 24 hr tabletIndication s:Type 2 diabetes mellitus without complication, without long-term current use of insulin ([facility]) Take 1 tablet (500 mg total) by mouth daily with breakfast for 14 days, THEN 2 tablets (1,000 mg total) daily with breakfast. 194 tablet 5 026 Active Blood Glucose Monitoring Suppl (ONE TOUCH ULTRA 2) w/Device KitIndications:T ype 2 diabetes mellitus without complication, without long-term current use of insulin ([facility]/HCC HHS/HCC) Check blood sugar once daily in AM 1 kit 5 Active Glucose Blood test stripIndications :Type 2 diabetes mellitus without complication, without long-term current use of insulin ([facility] HHS/HCC) Check blood sugar once daily in AM 300 strip 1 5 Active Lancets (ONETOUCH ULTRASOFT) lancetsIndicatio ns:Type 2 diabetes mellitus without complication, without long-term current use of insulin ([facility] HHS/HCC) Check blood sugar once daily in am 100 each 1 5 Active empagliflozin (JARDIANCE) 25 MG tabletIndication s:Type 2 diabetes mellitus without complication, without long-term current use of insulin ([facility] HHS/HCC) Take 1 tablet (25 mg total) by mouth daily. 90 tablet 5 Active lisinopril-hydro CHLOROthiazide (ZESTORETIC) 20-12.5 MG tabletIndication s:Primary hypertension Take 2 tablets by mouth daily. 180 tablet 3 5 026 Active amLODIPine (NORVASC) 5 MG tabletIndication s:Primary hypertension Take 1 tablet (5 mg total) by mouth daily. 90 tablet 3 5 026 Active lisinopril-hydro CHLOROthiazide (ZESTORETIC) 20-12.5 MG tabletIndication s:Essential hypertension Take 1.5 tablets by mouth daily. 135 tablet 3 5 025 Discontinu ed(Reorder ) levETIRAcetam (KEPPRA) 500 MG tabletIndication s:Seizure (CMS/HCC HHS/HCC) Take 2 tablets (1,000 mg total) by mouth daily for 30 days. 60 tablet 025 Active Problems Problem Noted Date Diagnosed Date Type 2 diabetes mellitus wit hout complication, without long-term current use of insulin 06/01/2025 Overview (06/16/2025): Dx 05/2025. 02/2025 A1c was 6.3%, indicating prediabetes. Jumped to 7.6% in 05/2025. - Tolerating metformin. BS are 140-150s. - Eye exam at [facility] in [place], Dr. Laguerre. Assessment & Plan (06/16/2025 9:08 AM FOUR ROLL CALENDER OPERATOR): Blood sugars not yet controlled. Add Jardiance 25 mg daily. Discussed some simple dietary interventions such as adding legumes to meals to improve blood sugars. Assessment & Plan (06/01/2025 12:26 PM FOUR ROLL CALENDER OPERATOR): Uncontrolled. A1c escalated from 6.3% in 02/2025 to 7.6% currently, indicating transition from prediabetes to uncontrolled diabetes over 4 months. - discussed dietary interventions - Prescribed metformin extended release: one tablet daily for two weeks, then increase to two tablets daily. - Ordered glucometer to monitor fasting blood sugar levels, target range 100- 130. - Ordered urine microalbumin test to assess for protein leakage. - Inform hotel engineer about diabetes diagnosis and request retinal exam. - Maintain good foot hygiene and wear shoes indoors and outdoors. Hemifacial spasm of left side of face 05/11/2025 New onset seizure 05/08/2025 Assessment & Plan (05/08/2025 10:58 AM CDT): Acute. No prior history of seizures. - Experienced a seizure on , lasting until ambulance arrival. Postictal symptoms included prolonged sleepiness and memory loss. Slightly low potassium, other labs, EKG, and head CT unremarkable. Discharged with Keppra. - Maintain current Keppra dosage until neurology appointment. - Increase intake of high-potassium foods. - Avoid bright lights. - Urgent neurology consultation ordered. - Potassium levels rechecked in 2 weeks. History of prostate cancer 05/18/2024 Overview (05/18/2024): In remission. Diagnosed in 1999. S/p surgery. Mixed hyperlipidemia 05/17/2024 Overview (05/18/2024): Takes atorvastatin. Last labs in February 2024. Assessment & Plan (12/13/2024 2:41 PM CDT): Repeat lipid panel and CMP in 6 months. Continue atorvastatin. Assessment & Plan (05/18/2024 11:58 AM FOUR ROLL CALENDER OPERATOR): Chronic and controlled. Continue atorvastatin. CMP and lipid panel reviewed from February 2024. Primary hypertension 05/17/2024 Overview (06/16/2025): Takes lisinopril-HCTZ 20-12.5 mg, amlodipine 5 mg daily. Assessment & Plan (06/16/2025 9:10 AM FOUR ROLL CALENDER OPERATOR): Not controlled. Increase lisinopril-hydrochlorothiazide to 40-25 mg daily and continue amlodipine. Request update on blood pressures in 1 week. Assessment & Plan (12/13/2024 2:41 PM CDT): Controlled. Continue lisinopril-hydrochlorothiazide and amlodipine. Ordered CMP to recheck kidney function. Assessment & Plan (05/18/2024 11:59 AM FOUR ROLL CALENDER OPERATOR): Chronic and controlled. Continue lisinopril-hydrochlorothiazide and amlodipine. Laryngopharyngeal reflux (LPR) 02/25/2021 Overview (05/18/2024): Still takes pepcid. Seems to work well also uses it for his right ear itching. Assessment & Plan (12/13/2024 2:41 PM CDT): Controlled. Continue Pepcid. 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 Uses implant. Sees him every 6 months. Prediabetes 08/11/2016 Overview (05/18/2024): Last A1c 6.3% in February 2024. Encounters Date Type Department Care Team Description 06/19/2025 Telephone [facility] [address] [place] [address] Zenaida Sanchez MD Record Request 06/16/2025 8:50 AM FOUR ROLL CALENDER OPERATOR Office Visit [facility] [address] [place] [address] Zenaida Sanchez MD Follow Up (6 month chronic disease f/u/) 06/16/2025 Medcurrenthart Message Enc [facility] [address] [place] [address] Zenaida Sanchez MD Blood pressure 06/16/2025 Travel 06/12/2025 Results Follow-Up [facility] - [facility] [address] [facility], [address] [place] [address] Marco Antonio Johnston MD MRI BRAIN WO CON, EEG awake or drowsy routine 06/09/2025 12:33 PM FOUR ROLL CALENDER OPERATOR - 06/09/2025 11:59 PM FOUR ROLL CALENDER OPERATOR Hospital Encounter [facility] Neurology [address] [facility] [address] Marco Antonio Johnston MD Discharge Disposition: Home or Self Care (Routine Discharge) 06/09/2025 11:33 AM FOUR ROLL CALENDER OPERATOR - 06/09/2025 12:32 PM FOUR ROLL CALENDER OPERATOR Hospital Encounter [facility] Open MRI [address] [place] [address] Marco Antonio Johnston MD Discharge Disposition: Home or Self Care (Routine Discharge) 06/09/2025 Travel 06/07/2025 Results Follow-Up [address] [place] [address] Eloina Stringer NP ALBUMIN URINE RANDOM W/CREATININE 06/06/2025 1:00 PM FOUR ROLL CALENDER OPERATOR Allied Health/Nurse Visit [address] [place] [address] Zenaida Sanchez MD Lab Test 06/06/2025 Scan [facility] Scanned[facility] 06/06/2025 Travel 06/05/[address] [place] [address] Zenaida Sanhcez MD Error (Patients urine got left in the lab door over the weekend. We didn't realize it was there and I explained to patient and he was understanding. He will come back by sometime this week and leave a sample. ) 06/01/2025 11:50 AM FOUR ROLL CALENDER OPERATOR Office Visit [address] [place] [address] Zenaida Sanchez MD Diabetes (Here to discuss new onset diabetes. ) 06/01/2025 [facility] Scanned[facility] 06/01/2025 Travel 05/29/2025 2:30 PM FOUR ROLL CALENDER OPERATOR Allied Health/Nurse Visit [address] [place] [address] Zenaida Sanchez MD Testing (Here for A1C check. ) 05/29/2025 Travel 05/26/2025 Results Follow-Up [address] [place] [address] Zenaida Sanchez MD KEPPRA LEVEL, BASIC METABOLIC PANEL 05/26/2025 MyChart Message Enc [address] [place] [address] Zenaida Sanchez MD Glucose 05/25/2025 8:20 AM FOUR ROLL CALENDER OPERATOR Allied Health/Nurse Visit [address] [place] [address] Zenaida Sanchez MD Lab Draw 05/25/2025 Travel 05/11/2025 10:40 AM CDT Office Visit [facility] - [address], [address] [place] [address] Marco Antonio Johnston MD New Patient; Seizures 05/11/2025 Therapy Plan [facility] - [address], [address] [place] [address] Marco Antonio Johnston MD 05/11/2025 Telephone [facility] - [address], [address] [place] [address] Marco Antonio Johnston MD Botox; Appointment Request 05/11/2025 Travel 05/08/2025 10:30 AM CDT Office Visit [address] [place] [address] Zenaida Sanchez MD ER F/U (He had a seizure. Went to an er in [place]. They did a work up on him. We have the reports. He is feeling ok today. Maybe a bit tired. ) 05/08/[address] [place] [address] Zenaida Sanchez MD Referral 05/08/2025 Travel 05/04/2025 Scan [facility] INFO SRVCS Scanned, [facility] 05/04/[address] [place] [address] Zenaida Sanchez MD Appointment Request from Last 3 Months Immunizations Immunization Administration Dates Next Due Arexvy Respiratory Syncytial Virus (RSV, adjuvanted) 0.5 mL, PF 07/14/2024 FLUAD (IIV, Trivalent, 0.5 M L Pre-filled Syringe) 03/17/2024 Fluzone High Dose (IIV, triv alent, 0.5mL) 04/07/2017,08/11/2016,05/01/2016,2014 Fluzone High Dose - >Age 65 (Prefilled Syringe) 04/20/2023,03/19/2022,04/12/2021 Influenza (Generic) 05/10/2013 Influenza Adult (Generic) 04/19/2020,04/02/2019, 04/19/2018 Pneumococcal (Pneumovax 23) 04/11/2011, 0,05/02/2005 Pneumococcal (Prevnar 13) 04/17/2015,04/21/2014 Pneumococcal (Prevnar 20) 10/26/2023 Shingrix 12/04/2023,09/07/2023 Tdap (Generic) 09/07/2024,05/05/2018 Zoster (Zostavax) 76763 Unt/0.65Ml 05/07/2012 Family History Medical History Relation Comments Cancer Father Diabetes Father Alcohol Abuse Maternal Uncle Diabetes Mother Heart Disease Mother Macular Degeneration Mother Relation Status Comments Father Maternal Uncle Mother Social History Tobacco Use Types Packs/Day Years Used Date Smoking Tobacco: Former Cigarettes 1.5 15 Q uit: 01/11/1980 Passive Smoke Exposure: Past Smokeless Tobacco: Never Tobacco Cessation:Counseling Given: Yes Alcohol Use Standard Drinks/Week Comments Not Currently [...] Orientation Straight 05/06/2024 1: 01 PM CDT Last Filed Vital Signs Vital Sign Reading Time Taken Comments Blood Pressure 155/95 06/16/2025 8:35 AM FOUR ROLL CALENDER OPERATOR Pulse 55 06/16/2025 8:35 AM FOUR ROLL CALENDER OPERATOR Temperature 35.6 C (96 F) 06/16/2025 8:35 AM FOUR ROLL CALENDER OPERATOR Respiratory Rate 16 06/16/2025 8:35 AM FOUR ROLL CALENDER OPERATOR Oxygen Saturation 96% 06/16/2025 8:35 AM FOUR ROLL CALENDER OPERATOR Inhaled Oxygen Concentration - - Weight 103 kg (227 lb) 06/16/2025 8:35 AM FOUR ROLL CALENDER OPERATOR Height 175.3 cm (5' 9) 06/16/2025 8:35 AM FOUR ROLL CALENDER OPERATOR Body Mass Index 33.52 06/16/2025 8:35 AM FOUR ROLL CALENDER OPERATOR Plan of Treatment Upcoming Encounters Date Type Department Care Team (Late st Contact Info) Description 06/27/2025 8:30 AM FOUR ROLL CALENDER OPERATOR Office Visit [facility] Family Medicine [address] [address] Zenaida Sanchez MD [address] [place] [address] 07/17/2025 11:00 AM FOUR ROLL CALENDER OPERATOR Office Visit [facility]ty [facility] - [facility] [address] [facility], [address] [place] [address] Marco Antonio Johnston MD [address] [facility] [address] [place] [address] 09/01/2025 10:50 AM FOUR ROLL CALENDER OPERATOR Office Visit [facility] Family Medicine [address] [address] Zenaida Sanchez MD [address] [place] [address] 11/07/2025 8:00 AM CDT Office Visit [facility] - [facility] [address] [facility], [address] [place] [address] Marco Antonio Johnston MD [address] [facility] [address] [place] [address] 12/19/2025 8:10 AM CDT Office Visit [facility] Family Medicine - [address] [place] [id number] Zenaida Sanchez MD [address] [place] [phone] 12/19/2025 8:30 AM CDT Office Visit [facility] - [address] [place] [address] Zenaida Sanchez MD [address] [place] [phone] Health Maintenance Due Date Last Done Comments Diabetes: Retinopathy Eye Exam 02/02/1962 Lipid Panel 03/07/2025 03/07/2024 COVID-19 Vaccine ( season) 2025 10/11/2024, 04/04/2024, 04/20/2023, Additional history exists Influenza Adult (#1) 2025 03/17/2024, 04/20/2023, 03/19/2022, Additional history exists Hemoglobin A1C 11/26/2025 05/29/2025, 0812/2023, 08/13/2023, Additional history exists Annual Medicare Wellness Visit 12/14/2025 12/13/2024 Kidney Health Evaluation 06/06/2026 06/06/2025 DTaP, Tdap and Td Vaccines (3 - Td or Tdap) 09/07/2034 09/07/2024, 05/05/2018 Pneumococcal Vaccine: 50+ Years Completed 10/26/2023, 04/17/2015, 04/21/2014, Additional history exists Zoster Vaccines Completed 12/04/2023, 08/14, 05/07/2012 RSV Immunization or 60+ Years Completed 07/14/2024 PHQ-2 (Physician [place]) Completed 12/10/2024 Hepatitis A Vaccines Aged Out No long er eligible based on patient's age to complete this topic Meningococcal B Vaccine Aged Out No l onger eligible based on patient's age to complete this topic Meningococcal Vaccine Aged Out No edwin milo eligible based on patient's age to complete this topic RSV Immunizations Under 20 Months Aged Out No longer eligible based on patient's age to complete this topic Medical Devices Implanted Type Area Intelligence Operations Device Identifier Shelf Expiration Date Model / Serial / Lot Penile-01/09/2023 Implanted:2022 by Non-Staff, Provider (Quantity not on file) Penile Pelvis [employer] ADELINA Description:AMS 700 penile p rosthesis CX MRI Conditional up to 3T Max whole body averaged JEFFREY is 2.9W/kg for 15 minutes of scanning [email or web address] Procedures Procedure Name Priority Date/Time Associated Diagnosis Comments EEG SLEEP DEPRIVED Routine 06/09/2025 1: 15 PM FOUR ROLL CALENDER OPERATOR New onset seizure ([facility] HHS/HCC) MRI BRAIN WO CON Routine 06/09/2025 12:2 6 PM FOUR ROLL CALENDER OPERATOR New onset seizure ([facility] HHS/HCC) COLLECTION VENOUS BLOOD VENIPUNCTURE Routine 06/06/2025 12:59 PM FOUR ROLL CALENDER OPERATOR Type 2 diabetes mellitus without complication, without long-term current use of insulin ([facility] HHS/HCC) ALBUMIN URINE RANDOM W/CREATININE Routine 06/06/2025 12:59 PM FOUR ROLL CALENDER OPERATOR Type 2 diabetes mellitus without complication, without long-term current use of insulin ([facility] HHS/HCC) COLLECT.CAPILLARY (FNGR,HEEL,EAR) Routine 05/29/2025 2:42 PM FOUR ROLL CALENDER OPERATOR Prediabetes HEMOGLOBIN, GLYCOSYLATED Routine 05/29/2025 Prediabetes COLLECTION VENOUS BLOOD VENIPUNCTURE Routine 05/25/2025 8:25 AM FOUR ROLL CALENDER OPERATOR Seizure (CMS/HCC HHS/HCC) KEPPRA LEVEL Routine 05/25/2025 8:16 AM FOUR ROLL CALENDER OPERATOR Seizure (CMS/HCC HHS/HCC) BASIC METABOLIC PANEL Routine 05/25/2025 8:15 AM FOUR ROLL CALENDER OPERATOR Seizure (CMS/HCC HHS/HCC) from Last 3 Months Results * EEG awake or drowsy routine (06/09/2025 1:15 PM FOUR ROLL CALENDER OPERATOR) Narrative [facility] - 06/09/2025 1:15 PM FOUR ROLL CALENDER OPERATOR Marco Antonio Johnston MD 06/12/2025 11:33 AM Extended EEG Report Patient Name: Mario Rios [facility] Medical Record Number (MRN): [id number] Date of (): 1945 EEG Date: 06/09/2025 CC: ZENAIDA SANCHEZ MD Start Time: 13:21 pm End Time: 14:25 pm Introduction: Mario Rios is a 80-year-old male Is referred for extended EEG recording. EEG was performed to evaluate for seizures. This is a 22 channel EEG recording acquired on a Lumense EEG-1200 acquisition system. Scalp electrodes were placed according to the international 10-20 System. The analog EEG was filtered from 1-70 Hz and digitally sampled at 200 Hz. The record was then reformatted for review in bipolar and referential montages. EEG Description: The awake background included a 7.5-8 Hz posterior rhythm which attenuated with eye opening and activity. During drowsiness, identified by ocular signs and alpha attenuation, there was intermittent, diffuse, asynchronous theta activity admixed with 2-4 Hz polymorphic frontotemporal delta activity. Sleep was not recorded. Hyperventilation was not performed. Photic strobe stimulation elicited no abnormalities. There were no focal, lateralized or epileptiform abnormalities. Interpretation: This is a normal awake and drowsy extended EEG. A normal EEG does not exclude a diagnosis of epilepsy or seizures. Clinical correlation is recommended. Marco Antonio Johnston M.D Board Certified Neurologist Board Certified in Clinical Neurophysiology Marco Antonio Johnston MD NEUROLOGY ORDERABLES Final Re sult [facility] [address] [place] [address], * MRI BRAIN WO CON (06/09/2025 12:26 PM FOUR ROLL CALENDER OPERATOR) Anatomical Region Laterality Modality Head Magnetic Resonan ce 06/09/2025 1:15 PM FOUR ROLL CALENDER OPERATOR Impressions 06/09/2025 1:18 PM FOUR ROLL CALENDER OPERATOR IMPRESSION: 1. No evidence of acute infarct or intracranial mass lesion. 2. Chronic senescent changes. Referred By: MARCO ANTONIO JOHNSTON Interpreted By: Vinicius Ross MD, 06/09/2025 1:15 PM Narrative 06/09/2025 1:18 PM FOUR ROLL CALENDER OPERATOR [address] [address] INDICATION: Seizure EXAMINATION: MRI of the brain without contrast. TECHNIQUE: Multisequence multiplanar unenhanced imaging. DATE/TIME: 06/09/2025 11:40 AM COMPARISON: None. FINDINGS: There is no evidence of restricted diffusion or acute infarct. There is no evidence of intracranial mass lesion, mass effect, or midline shift. There is moderate volume loss with enlargement of the ventricles and hemispheric sulci. No significant chronic small vessel ischemic change noted. The proximal portions of the major intracranial arterial flow voids are grossly patent. No abnormal extra-axial collections identified. Gradient images reveal no evidence of hemorrhage. No evidence of demyelinating disease or encephalitis. No evidence of mesial temporal sclerosis. The craniocervical junction, sellar content, and pineal region appear unremarkable. Status post right-sided lens extraction. Mastoid air cells, paranasal sinuses, and images of the orbits are otherwise unremarkable. Procedure Note Vinicius Ross MD - 06/09/2025 [id number] [place] [address] INDICATION: Seizure EXAMINATION: MRI of the brain without contrast. TECHNIQUE: Multisequence multiplanar unenhanced imaging. DATE/TIME: 06/09/2025 11:40 AM COMPARISON: None. FINDINGS: There is no evidence of restricted diffusion or acute infarct. There is noevidence of intracranial mass lesion, mass effect, or midline shift. Thereis moderate volume loss with enlargement of the ventricles and hemisphericsulci. No significant chronic small vessel ischemic change noted. Theproximal portions of the major intracranial arterial flow voids aregrossly patent. No abnormal extra-axial collections identified. Gradientimages reveal no evidence of hemorrhage. No evidence of demyelinatingdisease or encephalitis. No evidence of mesial temporal sclerosis. Thecraniocervical junction, sellar content, and pineal region appearunremarkable. Status post right-sided lens extraction. Mastoid air cells,paranasal sinuses, and images of the orbits are otherwise unremarkable. IMPRESSION: 1. No evidence of acute infarct or intracranial mass lesion. 2. Chronic senescent changes. Referred By: MARCO ANTONIO JOHNSTON Interpreted By: Vinicius Ross MD, 06/09/2025 1:15 PM us Marco Antonio Johnston MD MRI Final Result * ALBUMIN URINE RANDOM W/CREATININE (06/06/2025 12:59 PM FOUR ROLL CALENDER OPERATOR) MICROALBUMIN (U) 13.2 <20 MG/L 06/07/20 8:39 AM FOUR ROLL CALENDER OPERATOR [facility] CREATININE RANDOM (U) 109.8 MG/DL 06/07/2025 8:39 AM FOUR ROLL CALENDER OPERATOR [facility] ALBUMIN/CREAT RATIO 12.0 <30 MG/G 06/07/2025 8:39 AM FOUR ROLL CALENDER OPERATOR [facility] URINE URINE SPECIMEN OBTAINED BY CLEAN CATCH PROCEDURE / Unknown 06/06/2025 12:59 PM FOUR ROLL CALENDER OPERATOR Zenaida Sanchez MD URINE ORDERABLES Final R esult [facility] [address] [place] [address], [place] [phone] * A1C (BACK OFFICE) (05/29/2025) HGB A1C 7.6 % [facility] [place] BLOOD VENOUS BLOOD SPECIMEN / Unknown 05/29/2025 us Zenaida Sanchez MD LABORATORY Final Re sult [facility] [place] [address] [place] [address], * KEPPRA LEVEL (05/25/2025 8:16 AM FOUR ROLL CALENDER OPERATOR) KEPPRA 18.7 6.0 - 46.0 mcg/mL [facility] Comment: Brivaracetam (Briviact(R), Rikelta(R)) exhibits significant cross-reactivity in the Levetiracetam (Keppra(R), Spritam(R)) immunoassay. If Brivaracetam has been prescribed, order Test Code 67785 Levetiracetam by LCMSMS. BLOOD VENOUS BLOOD SPECIMEN / Unknown 05/25/2025 8:16 AM FOUR ROLL CALENDER OPERATOR 05/26/2025 3:45 AM FOUR ROLL CALENDER OPERATOR Narrative Resulting Agency Comment Performing Organization Information: Site ID: ID Name: [facility] Address: [address], [place] [address] Director: Olinda Nino MD Zenaida Sanchez MD LABORATORY Final Re sult [facility] [address] [place] [address], * (ABNORMAL) BASIC METABOLIC PANEL (05/25/2025 8:15 AM FOUR ROLL CALENDER OPERATOR) [facility] SODIUM S/P/B 140 136 - 145 MMOL/L 05/25/2025 3:46 PM [facility] [place] POTASSIUM S/P/B 3.6 3.5 - 5.1 MMOL/L 05/25/2025 3:46 PM [facility] [place] CHLORIDE S/P/B 102 98 - 107 MMOL/L 05/25/2025 3:46 PM [facility] [place] CO2 27.7 21 - 32 MMOL/L 05/25/2025 4:07 PM [facility] Comment:RESULT CHECKED GLUCOSE 254(H) 70 - 99 MG/DL 05/25/2025 3:46 PM [facility] BUN 17 7 - 18 MG/DL 05/25/2025 3:46 PM [facility] CREATININE S/P/B 0.98 0.70 - 1.30 MG/DL 05/25/2025 3:46 PM [facility] CALCIUM S/P/B 8.3(L) 8.4 - 10.5 MG/DL 05/25/2025 3:46 PM [facility] ANION GAP 10.3 5 - 15 MMOL/L 05/25/2025 4:07 PM [facility] Comment:REFERENCE RANGE NOT ESTABLISHED OSMOLALITY (CALC) 300 MOSM/KG 2 025 3:46 PM [facility] Comment:REFERENCE RANGE NOT ESTABLISHED GFR ESTIMATE 77(L) >90 ML/MIN/1. 73 M2 05/25/2025 3:46 PM [facility] GFR NOTES GFR REFERENCE S: 05/25/2025 3:46 PM [facility] Comment: THE ESTIMATED GFR IS CALCULATED USING THE 2020 CKD-EPI EQUATION. THE FOLLOWING CATEGORIES FOR GRADING RENAL FUNCTION ARE RECOMMENDED BY THE INTERNATIONAL SOCIETY OF NEPHROLOGY (KDIGO 2012 CLINICAL PRACTICE GUIDELINE). G1,NORMAL OR HIGH: >89 ml/min/1.73 m2 G2,MILDLY DECREASED: 60-89 ml/min/1.73 m2 G3A,MILDLY TO MODERATELY DECREASED: 45-59 ml/min/1.73 m2 G3B,MODERATELY TO SEVERELY DECREASED: 30-44 ml/min/1.73 m2 G4,SEVERELY DECREASED: 15-29 ml/min/1.73 m2 G5,KIDNEY FAILURE: <15 ml/min/1.73 m2 05/25/2025 8:15 AM FOUR ROLL CALENDER OPERATOR us Zenaida Sanchez MD LABORATORY Final Re sult [facility] [address] [place] [address], [place] [phone] from Last 3 Months Insurance [facility] [employer]RO[employer] MEDICARE Advance Directives Documents on File Type Date Recorded Patient Assistant 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
--- OUTSIDE RECORDS SUMMARY | 2025-06-24 14:46 | XMS_ITS | Clinical Summary ---
Author Organization [facility] Address [address] [facility] [address] [place] [address] Phone Care Team Providers Care Poultry Scientist Name Role Phone Rosalie Valencia NP Primary Care Provide r Aguilar Clayton MD Unavailable [phone] Allergies Active Allergy Reactions Criticality Noted Date Comments Codeine Other (See comments) Low 06/18/2021 Patient states it makes him feel kind of loopy. Medications atorvastatin (LIPITOR) 20 mg tablet Take 1 tablet (20 mg total) by mouth daily 1 Active cetirizine (ZyrTEC) 10 mg tablet Take 1 tablet (10 mg total) by mouth daily Active fluticasone propionate (FLONASE) 50 mcg/actuation nasal spray Administer 1 spray into each nostril daily Active lisinopril-hydr oCHLOROthiazide (ZESTORETIC) 20-12.5 mg per tabletIndicatio ns:hypertension Take 1 tablet by mouth daily Active acidophilus-pec tin, citrus 100 million cell-10 mg capsule Take 1 capsule by mouth daily Active propranoloL (INDERAL) 10 mg tablet Take by mouth 3 (three) times a day as needed 1 Active amLODIPine (NORVASC) 5 mg tablet Take 1 tablet (5 mg total) by mouth 4 Active celecoxib (CeleBREX) 100 mg capsule Take 1 capsule (100 mg total) by mouth 4 Active famotidine (PEPCID) 40 mg tabletIndicatio ns:Laryngophary ngeal reflux (LPR) Take 1 tablet (40 mg total) by mouth nightly 90 tablet 3 4 Active famotidine (PEPCID) 20 mg tabletIndicatio ns:Laryngophary ngeal reflux (LPR) Take 1 tablet (20 mg total) by mouth nightly 30 tablet 1 5 Active Active Problems Problem Noted Date Diagnosed Date 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 1 07/27/2020 Assessment & Plan (05/27/2021 10:40 AM BRAKE LINER): Lotrisone cream to outer portion of the ear canal twice daily for two weeks Avoid ear cleaning techniques Avoid water to ears Laryngopharyngeal reflux (LPR) 02/25/2021 Assessment & Plan (04/20/2024 8:58 AM CDT): Try to decrease Pepcid (famotidine) to 20 mg at bedtime Wear hearing aids for shorter periods of time Assessment & Plan (01/19/2024 10:16 AM CDT): Continue Flonase and Zyrtec daily Restart Pepcid 40 mg at bedtime Follow up in 3 months for recheck, earlier with ear infection Assessment & Plan (07/01/2021 11:17 AM BRAKE LINER): Continue Pepcid Assessment & Plan (05/27/2021 4:45 PM BRAKE LINER): Pepcid 40 mg at bedtime Assessment & Plan (02/25/2021 4:55 PM CDT): Flonase 2 sprays into each nostril while looking down over the sink, do not sniff in or blow nose after use for at least 30 minutes daily Continue Mucinex but increase to daily Pepcid 40 mg at bedtime Obtain hearing test from [facility] 64 ounces of caffeine free and soda free fluid daily 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 All questions were answered and patient agreed to proceed. Assessment & Plan (02/25/2021 4:55 PM CDT): Pepcid 40 mg at bedtime Rescope at follow up, consider MDL with biopsy if Right vocal process granuloma still present Surgical History Surgery Date Site/Laterality Comments OTHER SURGICAL HISTORY prostate cancer 12 yrs ago PROSTATE SURGERY Medical History Medical History Date Comments Hypertension Hypertension Diabetes mellitus Diabetes Hypertension Cancer (HCC) prostate cancer HLD (hyperlipidemia) GERD (gastroesophageal reflux disease) Social History Tobacco Use Types Packs/Day Years Used Date Smoking Tobacco: Never Smokeless Tobacco: Never Tobacco Cessation:Counseling Given: Not Answered Alcohol Use Standard Drinks/Week Comments Yes 0 (1 standard drink = 0.6 oz pur e alcohol) AUDIT-C Answer Date Recorded Q1: How often do you have a drink containing alc ohol? Never 06/21/2021 Average Number of Drinks Not on file 021 Frequency of Binge Drinking Not on file 06/12 Sex and Gender Information Value Date Recorded Sex Assigned at Not on file Legal Sex Male 6:21 PM BRAKE LINER Gender Identity Male 05/20/2021 6:27 AM BRAKE LINER Sexual Orientation Not on file Last Filed Vital Signs Vital Sign Reading Time Taken Comments Blood Pressure 151/85 04/20/2024 8:46 AM CDT Pulse 84 04/20/2024 8:46 AM CDT Temperature 36.2 C (97.1 F) 07/01/2021 10:57 AM BRAKE LINER Respiratory Rate 18 04/20/2024 8:46 AM CDT Oxygen Saturation 96% 04/20/2024 8:46 AM CDT Inhaled Oxygen Concentration - - Weight 102.1 kg (225 lb) 04/20/2024 8:46 AM CDT Height 175.3 cm (5' 9.02) 04/20/2024 8:46 AM CD T Body Mass Index 33.21 04/20/2024 8:46 AM CDT Plan of Treatment Health Maintenance Due Date Last Done Comments Depression Screening 1945 Fall Risk Assessment 1945 Hepatitis B Screening 02/02/1962 Well Visit 65+ 02/02/2009 Zoster Vaccine (2 of 3) 07/02/2012 05/07/2012 Covid-19 Vaccine (3 - 2024-2 6 season) 2025 09/22/2020, 08/25/2020 Influenza Vaccine (#1) 2025 , 04/02/2019, 04/19/2018, Additional history exists DTaP/Tdap/Td Vaccine (2 - Td or Tdap) 05/05/2028 05/05/2018 Pneumococcal vaccine 65+ Completed 015, 04/21/2014, 04/11/2011, Additional history exists Insurance MEDICARE [employer] [facility] MEDICARE RAILROAD [facility] CHOICE PLUS Care Teams Poultry Scientist Relationship Specialty Start Date End Date Rosalie Valencia NP [address] [place] [address] PCP - General Emergency Medicine 12/26/20 Aguilar Clayton MD [address] [place] [address] 12/26/20
--- OUTSIDE RECORDS SUMMARY | 2025-06-24 14:46 | XMS_ITS | Encounter Summary ---
Author Organization [facility] Address [address] [place] [address] Care Team Providers Care Senior Master Scheduler Name Role Phone Zenaida Logan MD Primary Care Provider + Fili Márquez MD Unavailable Encounter Details Date Type Department Care Team (Latest Contact Info) Description 06/12/2025 Results Follow-Up [facility] Medical [facility] Multispecialty Care - [facility] [address] [facility], [address] [place] [phone] Luna Guerrier MD 3 [facility] [address] [place], [place] [phone] MRI BRAIN WO CON, EEG awake or drowsy routine Social History Tobacco Use Types Packs/Day Years [...] st Contact Info) Description 06/27/2025 8:30 AM VICE PRESIDENT TALENT MANAGEMENT Office Visit [address] [address] Zenaida Logan MD [address] [facility] [address] [place] [address] 07/17/2025 11:00 AM VICE PRESIDENT TALENT MANAGEMENT Office Visit [facility] - [address], [address] [place] [phone] Luna Guerrier MD [address] [place] [address] [address] [place] [address] 09/01/2025 10:50 AM VICE PRESIDENT TALENT MANAGEMENT Office Visit [address] [address] Zenaida Logan MD [address] [facility] [address] [place] [address] 11/07/2025 8:00 AM CDT Office Visit [facility] - [address], [address] [place] [phone] Luna Guerrier MD [address] [place] [address] [address] [place] [address] 12/19/2025 8:10 AM CDT Office Visit [facility] Medical Group Family Medicine - [address] [place] [address] Zenaida Logan MD [address] [place] [address] 12/19/2025 8:30 AM CDT Office Visit [facility] - [address] [place] [address] Zenaida Logan MD [address] [place] [address] documented as of this encounter Visit Diagnoses Not on filedocumented in this encounter Additional Health Concerns Assessment Noted Time PHQ-9 Depression Total Score: 1 12/11/19 10:08 AM CDT documented as of this encounter Care Teams Senior Master Scheduler Relationship Specialty Start Date End Date Zenaida Logan MD [address] [place] [phone] PCP - General FAMILY PRACTICE 05/18/24 Fili Márquez MD 3 [facility] [address] [place] [address] Consulting Physician UROLOGY 12/12/24 [facility] - [place] [address] 12/04/24 documented as of this encounter
--- OUTSIDE RECORDS SUMMARY | 2025-06-24 14:46 | XMS_ITS | Encounter Summary ---
Author Organization [facility] Address [address] [place] [address] Care Team Providers Care Steam Box Operator Name Role Phone Zenaida Logan MD Primary Care Provider + Fili Márquez MD Unavailable Encounter Details Date Type Department Care Team (Late st Contact Info) Description 06/07/2025 Results Follow-Up [facility] Medical Group Family Medicine - [place] [address] [facility] [address] [place] [address] Eloina Stringer NP [address] [place] [address] [place] [address] [phone] ALBUMIN URINE RANDOM W/CREATININE Social History Tobacco Use Types Packs/Day Years [...] st Contact Info) Description 06/27/2025 8:30 AM PUBLIC RECORDS RESEARCHER Office Visit [address] [address] Zenaida Logan MD [address] [address] 07/17/2025 11:00 AM PUBLIC RECORDS RESEARCHER Office Visit [facility] - [address], [address] [place] [phone] Luna Guerrier MD [address] [place] [address] [address] [place] [address] 09/01/2025 10:50 AM PUBLIC RECORDS RESEARCHER Office Visit [address] [address] Zenaida Logan MD [address] [address] 11/07/2025 8:00 AM CDT Office Visit [facility] - [address], [address] [place] [phone] Luna Guerrier MD [address] [place] [address] [address] [place] [address] 12/19/2025 8:10 AM CDT Office Visit [address] [place] [address] Zenaida Logan MD [address] [facility] [address] [place] [address] 12/19/2025 8:30 AM CDT Office Visit [facility] Medical Group Family Medicine - [place] [address] [facility] [address] [place] [address] Zenaida Logan MD [address] [facility] [address] [place] [address] documented as of this encounter Visit Diagnoses Not on filedocumented in this encounter Additional Health Concerns Assessment Noted Time PHQ-9 Depression Total Score: 1 12/11/19 25 10:08 AM CDT documented as of this encounter Care Teams Steam Box Operator Relationship Specialty Start Date End Date Zenaida Lgoan MD [address] [facility] [address] [place] [address] PCP - General FAMILY PRACTICE 05/18/24 Fili Márquez MD 3 [facility] [address] [place] [address] Consulting Physician UROLOGY 12/12/24 [facility] - [place] [address] [place] [address] [place] [address] 12/04/24 documented as of this encounter
--- OUTSIDE RECORDS SUMMARY | 2025-06-24 14:46 | XMS_ITS | Encounter Summary ---
Author Organization [facility] Address [address] [place] [address] Phone Care Team Providers Care Real Estate Manager Name Role Phone Rosalie Valencia APRN, PHOTOVOLTAIC INSTALLATION TECHNICIAN Primary Care P rovashtider Roni Arevalo APRN, PHOTOVOLTAIC INSTALLATION TECHNICIAN Unavailable Fili Márquez MD Unavailable [phone] Tung Connelly PAC Unavailable [phone] Reason for Visit * Reason Comments Medication Refill Encounter Details Date Type Department Care Team (Late st Contact Info) Description 08/09/2020 Refill [facility] [address] [place] [address] Billie Solorzano Milady, PAC [address] [place] [address] Medication Refill Social History Tobacco Use Types [...] encounter Miscellaneous Notes * Telephone Encounter - Kerry Andres RN - 08/10/2020 10:06 AM WIRE TAPER Medication approved and signed per standing order protocol. TAPER * Telephone Encounter - Antwan Davison CMA - 08/10/2020 6:33 AM WIRE TAPER Not a GI medication, forwarded to primary TAPER documented in this encounter Plan of Treatment Upcoming Encounters Date Type Department Care Team (Late st Contact Info) Description 03/16/2026 2:00 PM CDT Office Visit [facility]Y [address] [place] [phone] Fili Márquez MD [address] [address] documented as of this encounter Visit Diagnoses Not on filedocumented in this encounter Additional Health Concerns Assessment Noted Time PHQ-9 Depression Total Score: 0 10/21/19 10:00 AM CDT documented as of this encounter Care Teams Real Estate Manager Relationship Specialty Start Date End Date Rosalie Valencia APRN, PHOTOVOLTAIC INSTALLATION TECHNICIAN [address] [place] [address] PCP - General Advanced Practice Nurse 06/12/20 Roni Arevalo APRN, PHOTOVOLTAIC INSTALLATION TECHNICIAN [address] [place] [address] Nurse Practitioner Advanced Practice Nurse 08/19/22 Fili Márquez MD [address] [address] Consulting Physician Urology 10/28/22 Tung Connelly, PAC [address] [address] Physician Ironworker Machine Operator Physician Ironworker Machine Operator 11/25/23 documented as of this encounter
--- OUTSIDE RECORDS SUMMARY | 2025-06-24 14:46 | XMS_ITS | Encounter Summary ---
Author Organization [facility] Address [address] [place] [address] Care Team Providers Care Direct Marketing Representative Name Role Phone Zenaida Logan MD Primary Care Provider + Fili Márquez MD Unavailable Encounter Details Date Type Department Care Team (Late st Contact Info) Description 06/16/2025 [facility]Pace Message Enc [facility] Medical Group Family Medicine - [place] [address] [place] [address] Zenaida Logan MD [address] [place] [address] [phone] Blood pressure Social History Tobacco Use Types Packs/Day Years [...] st Contact Info) Description 06/27/2025 8:30 AM SHOP LABORER Office Visit [address] [address] Zenaida Logan MD [address] [facility] [address] [place] [address] 07/17/2025 11:00 AM SHOP LABORER Office Visit [facility] - [address], [address] [place] [address] Luna Guerrier MD [address] [place] [address] [address] [place] [address] 09/01/2025 10:50 AM SHOP LABORER Office Visit [address] [address] Zenaida Logan MD [address] [address] 11/07/2025 8:00 AM CDT Office Visit [facility] - [address], [address] [place] [address] Luna Guerrier MD [address] [place] [address] [address] [place] [address] 12/19/2025 8:10 AM CDT Office Visit [address] [place] [address] Zenaida Logan MD [address] [facility] [address] [place] [address] 12/19/2025 8:30 AM CDT Office Visit [facility] Medical Group Family Medicine - [place] [address] [facility] [address] [place] [address] Zenaida Logan MD [address] [facility] [address] [place] [address] documented as of this encounter Visit Diagnoses Not on filedocumented in this encounter Additional Health Concerns Assessment Noted Time PHQ-9 Depression Total Score: 1 12/11/19 25 10:08 AM CDT documented as of this encounter Care Teams Direct Marketing Representative Relationship Specialty Start Date End Date Zenaida Logan MD [address] [facility] [address] [place] [address] PCP - General FAMILY PRACTICE 05/18/24 Fili Márquez MD 3 [facility] [address] [place] [address] Consulting Physician UROLOGY 12/12/24 [facility] - [address] [place] [address] 12/04/24 documented as of this encounter
--- OUTSIDE RECORDS SUMMARY | 2025-06-24 14:47 | XMS_ITS | Encounter Summary ---
Author Organization [facility] Address [address] [place] [address] Phone Care Team Providers Care Needle Polisher Name Role Phone Rosalie Valencia APRN, STAFF DEVELOPMENT COORDINATOR Primary Care P esterder Roni Arevalo APRN, STAFF DEVELOPMENT COORDINATOR Unavailable + [phone] Fili Márquez MD Unavailable [phone] Tung Connelly PAC Unavailable [phone] Reason for Visit * Reason Comments Medication Refill Encounter Details Date Type Department Care Team (Late st Contact Info) Description 10/28/2023 Refill [facility] - Primary Care - [place] [address] [place] [phone] Rosalie Valencia APRN, STAFF DEVELOPMENT COORDINATOR [address] [place] [address] Medication Refill Social History Tobacco Use Types Packs/Day Years Used Date Smoking Tobacco: Former Cigarettes 1 23 1 08/19/1961 - 12/25/1984 Smokeless Tobacco: Never Alcohol Use Standard Drinks/Week Comments No 0 (1 standard drink = 0.6 oz pur e alcohol) [facility] Utilities Answer Date Recorded In the past 12 months has [employer], gas, oil, or water [employer] threatened to shut off services in your [...] 09/05/2023 How often do you attend chur ch or hoahaoism services? More than 4 times per year 09/05/2023 Do you belong to any clubs o r organizations such as sabianist groups, unions, fraternal or athletic groups, or [...] Total Score - Questions 1-9 0 10/11 [facility] - [...] money to buy more. Never true 09/05/19 24 Within the past 12 months, t he [...] place to sleep or slept in a residential (including now)? No 09/05/2023 Education Answer Date [...] encounter Miscellaneous Notes * Telephone Encounter - Shwetha Workman RN - 10/28/2023 8:43 AM CDT Medication(s) refilled and signed per [facility] Chronic Medication Refill Standing Order for Pediatricand Adult Patients. Requested Prescriptions Pending Prescriptions Disp Refills atorvastatin (LIPITOR) 20 MG Tablet [Pharmacy Med Name: ATORVASTATIN TABS 20MG] 90 Tablet 1 Sig: TAKE 1 TABLET DAILY Hmg CoA Reductase Inhibitors Protocol Passed - 10/28/2023 6:40 AM Passed - Visit with relevant provider in past 12 months or upcoming 90 days Recent Visits Date Type Provider Dept 09/07/23 Office Visit Rosalie Valencia [employer], STAFF DEVELOPMENT COORDINATOR [facility] 02/17/23 Office Visit Edie Hernández, VADIM, STAFF DEVELOPMENT COORDINATOR [facility] 12/30/22 Office Visit Rosalie Valencia APRN, STAFF DEVELOPMENT COORDINATOR [facility] Showing recent visits within past 365 days and meeting all other requirements Future Appointments No visits were found meeting these conditions. Showing future appointments within next 90 days and meeting all other requirements Passed - Lipid panel in past 12 months LDL Date Value Ref Range Status 08/13/2023 60 <130 mg/dL Final HDL CHOLESTEROL Date Value Ref Range Status 08/13/2023 39 (L) >40 mg/dL Final CHOLESTEROL Date Value Ref Range Status 08/13/2023 123 <200 mg/dL Final TRIGLYCERIDES Date Value Ref Range Status 08/13/2023 118 <150 mg/dL Final VLDL Date Value Ref Range Status 08/13/2023 24 10 - 50 mg/dL Final CHOL/HDL RATIO Date Value Ref Range Status 08/13/2023 3.2 0.0 - 4.4 Final NON-HDL CHOLESTEROL Date Value Ref Range Status 08/13/2023 84 <130 mg/dL Final Passed - CMP in past 12 months SODIUM Date Value Ref Range Status 08/13/2023 141 136 - 145 mmol/L Final POTASSIUM Date Value Ref Range Status 08/13/2023 3.7 3.5 - 5.1 mmol/L Final CHLORIDE Date Value Ref Range Status 08/13/2023 105 98 - 107 mmol/L Final CO2, VENOUS Date Value Ref Range Status 08/13/2023 29 22 - 30 mmol/L Final ANION GAP Date Value Ref Range Status 08/13/2023 10.7 <18.0 mmol/L Final GLUCOSE Date Value Ref Range Status 08/13/2023 130 (H) 70 - 99 mg/dL Final BUN Date Value Ref Range Status 08/13/2023 19 8 - 26 mg/dL Final CREATININE, BLOOD Date Value Ref Range Status 08/13/2023 0.94 0.70 - 1.30 mg/dL Final BUN/CREATININE RATIO Date Value Ref Range Status 08/13/2023 20 12 - 20 ratio Final TOTAL PROTEIN Date Value Ref Range Status 08/13/2023 6.7 6.3 - 8.2 g/dL Final ALBUMIN Date Value Ref Range Status 08/13/2023 4.1 3.5 - 5.0 g/dL Final A/G RATIO Date Value Ref Range Status 08/13/2023 1.6 1.0 - 2.2 Final CALCIUM Date Value Ref Range Status 08/13/2023 8.9 8.7 - 10.5 mg/dL Final T BILI Date Value Ref Range Status 08/13/2023 0.8 0.2 - 1.2 mg/dL Final SGOT (AST) Date Value Ref Range Status 08/13/2023 27 5 - 34 U/L Final SGPT (ALT) Date Value Ref Range Status 08/13/2023 34 0 - 55 U/L Final ALKALINE PHOSPHATASE Date Value Ref Range Status 08/13/2023 48 40 - 150 U/L Final GFR, EST. NONAFRICAN Date Value Ref Range Status 08/13/2023 >60 >=60 Final GFR, EST. Date Value Ref Range Status 08/13/2023 >60 >=60 Final GFR, ESTIMATED Date Value Ref Range Status 08/13/2023 >60 >=60 Final Comment: Creatinine Clearance is the preferred criteria for selecting drug dose adjustments in renally impaired patients. The GFR is provided as additional pertinent clinical information. GFR is reported in mL/min/1.73 sq m. Calculation based on the Chronic Kidney Disease Epidemiology Collaboration (CKD- EPI) equation refitwithout adjustment for race. IS THE PATIENT REQUIRED TO BE FASTING? Date Value Ref Range Status 08/13/2023 No Final amLODIPine (NORVASC) 5 MG Tablet [Pharmacy Med Name: AMLODIPINE BESYLATE TABS 5MG] 90 Tablet 1 Sig: TAKE 1 TABLET DAILY Calcium-Channel Blockers Protocol Passed - 10/28/2023 6:40 AM Passed - BP on record in the past year Clinician-entered: BP Readings from Last 3 Encounters: 10/07/23 110/65 09/07/23 140/74 08/21/23 140/70 Patient-entered: No data recorded Passed - Visit with relevant provider in past 12 months or upcoming 90 days Recent Visits Date Type Provider Dept 09/07/23 Office Visit Rosalie Valencia APRN, STAFF DEVELOPMENT COORDINATOR [facility] 02/17/23 Office Visit Edie Hernández APRN, CASSIDY [facility] 12/30/22 Office Visit Rosalie Valencia APRN, CASSIDY [facility] Showing recent visits within past 365 days and meeting all other requirements Future Appointments No visits were found meeting these conditions. Showing future appointments within next 90 days and meeting all other requirements documented in this encounter Plan of Treatment Upcoming Encounters Date Type Department Care Team (Late st Contact Info) Description 03/16/2026 2:00 PM CDT Office Visit [facility] [address] [place] [address] Fili Márquez MD [address] [address] documented as of this encounter Visit Diagnoses Diagnosis Mixed hyperlipidemia Primary hypertension Unspecified essential hypertension documented in this encounter Additional Health Concerns Assessment Noted Time PHQ-9 Depression Total Score: 0 10/21/19 20 10:00 AM CDT documented as of this encounter Care Teams Needle Polisher Relationship Specialty Start Date End Date Rosalie Valencia APRN, CNP [address] [place] [address] PCP - General Advanced Practice Nurse 06/12/20 Roni Arevalo APRN, CNP [address] [place] [address] Nurse Practitioner Advanced Practice Nurse 08/19/22 Fili Márquez MD #[address] [address] Consulting Physician Urology 10/28/22 Tung Connelly PAC #[address] [address] Physician Protection Analyst Physician Protection Analyst 11/25/23 documented as of this encounter
--- OUTSIDE RECORDS SUMMARY | 2025-06-24 14:47 | XMS_ITS | Encounter Summary ---
Author Organization [facility] Address [address] [place] [address] Phone Care Team Providers Care Accounting Systems Manager Name Role Phone Rosalie Valencia APRN, HOSPICE TEAM LEAD Primary Care P esterder Roni Arevalo APRN, HOSPICE TEAM LEAD Unavailable [phone] Fili Márquez MD Unavailable [phone] Tung Connelly PAC Unavailable [phone] Reason for Visit * Reason Comments Medication Refill Encounter Details Date Type Department Care Team (Late st Contact Info) Description 03/16/2024 Refill [facility] - Primary Care - Mae[place] [address] [place] [phone] Rosalie Valencia APRN, HOSPICE TEAM LEAD [address] [place] [address] Medication Refill Social History Tobacco Use Types Packs/Day Years Used Date Smoking Tobacco: Former Cigarettes 1 23 1 08/19/1961 - 12/25/1984 Smokeless Tobacco: Never Alcohol Use Standard Drinks/Week Comments No 0 (1 standard drink = 0.6 oz pur e alcohol) [facility] Utilities Answer Date Recorded In the past 12 months has [employer], gas, oil, or water [employer] threatened to shut off services in your [...] often do you attend chur ch or nondenominational services? More than 4 times per year 09/05/2023 Do you belong to any clubs o r organizations such as mosque groups, unions, fraternal or athletic groups, or [...] Total Score - Questions 1-9 0 10/11 [facility] Occupat ional Health - Occupational Stress [...] place to sleep or slept in a jail (including now)? No 09/05/2023 Education Answer Date [...] PM CDT documented as of this encounter Functional Status documented as of this encounter Mental Status * Question Answer Entry Date Author BP 96/64 03/17/2024 9:26 AM CDT Long Olivera CMA Temp 98.4 03/17/2024 9:26 AM CDT Long Olivera, BOBBI Pulse 62 03/17/2024 9:26 AM CDT Long Olivera CMA SpO2 96 03/17/2024 9:26 AM CDT Long Olivera CMA documented in this encounter Miscellaneous Notes * Telephone Encounter - Augustin Stark RN - 03/17/2024 8:18 AM CDT Pt has appt on 03/18/24. Will address then. documented in this encounter Plan of Treatment Upcoming Encounters Date Type Department Care Team (Late st Contact Info) Description 03/16/2026 2:00 PM CDT [facility] [address] [place] [address] Fili Márquez MD [address] [address] documented as of this encounter Visit Diagnoses Not on filedocumented in this encounter Additional Health Concerns Assessment Noted Time PHQ-9 Depression Total Score: 0 10/21/19 10:00 AM CDT documented as of this encounter Care Teams Accounting Systems Manager Relationship Specialty Start Date End Date Rosalie Valencia APRN, HOSPICE TEAM LEAD [address] [place] [address] PCP - General Advanced Practice Nurse 06/12/20 Roni Arevalo APRN, HOSPICE TEAM LEAD [address] [place] [address] Nurse Practitioner Advanced Practice Nurse 08/19/22 Fili Márquez MD [address] [address] Consulting Physician Urology 10/28/22 Tung Connelly PAC [address] [address] Physician Hunting Guide Physician Hunting Guide 11/25/23 documented as of this encounter
--- OUTSIDE RECORDS SUMMARY | 2025-06-24 14:47 | XMS_ITS | Encounter Summary ---
Author Organization [facility] Address [address] [place] [address] Care Team Providers Care Director Of Software Engineering Name Role Phone Zenaida Logan MD Primary Care Provider + Fili Márquez MD Unavailable Encounter Details Date Type Department Care Team (Late st Contact Info) Description 09/22/2024 [place] [employer] Message Enc [facility] Family Medicine - [place] [address] [place] [phone] Zenaida Logan MD [address] [place] [address] Lisinopril Social History Tobacco Use Types Packs/Day Years Used Date Smoking Tobacco: Former Cigarettes 1.5 15 Q uit: 01/11/1980 Passive Smoke Exposure: Past Smokeless Tobacco: Never Alcohol Use Standard Drinks/Week Comments Never 0 (1 standard drink = 0.6 oz pur e alcohol) PHQ-2 Answer Date Recorded Patient Health Questionnaire-2 Score 0 05/18/2024 Sex and Gender Information Value Date Recorded Sex Assigned at Male 05/06/2024 1:01 PM CDT Legal Sex Male 10:10 AM CDT Gender Identity Male 05/06/2024 1:01 PM CDT Sexual Orientation Straight 05/06/2024 1: 01 PM CDT documented as of this encounter Progress Notes * Susan Neff MA - 09/22/2024 12:51 PM CDT I called and confirmed the medication, strength, and what he has been taking. I sent in new rx * Zenaida Logan MD - 09/22/2024 11:55 AM CDT This was probably not reconciled correctly the first time he was seen here when he established. Please call him to confirm his dosing for what he was taking when he established and send that dose in for one year. Thanks. documented in this encounter Plan of Treatment Upcoming Encounters Date Type Department Care Team (Late st Contact Info) Description 06/27/2025 8:30 AM OIL DEVELOPER Office Visit [address] [address] Zenaida Logan MD [address] [facility] [address] [place] [address] 07/17/2025 11:00 AM OIL DEVELOPER Office Visit [facility] - [address], [address] [place] [address] Luna Guerrier MD [address] [place] [address] [address] [place] [address] 09/01/2025 10:50 AM OIL DEVELOPER Office Visit [address] [address] Zenaida Logan MD [address] [facility] [address] [place] [address] 11/07/2025 8:00 AM CDT Office Visit [facility] - [address], [address] [place] [address] Luna Guerrier MD [address] [facility] [address] [place] [address] 12/19/2025 8:10 AM CDT Office Visit [facility] Family Medicine - [address] [place] [address] Zenaida Logan MD [address] [place] [address] [place] [phone] 12/19/2025 8:30 AM CDT Office Visit [facility] - [address] [phone] Zenaida Logan MD [address] [place] [phone] documented as of this encounter Visit Diagnoses Not on filedocumented in this encounter Care Teams Director Of Software Engineering Relationship Specialty Start Date End Date Zenaida Logan MD [address] [place] [address] PCP - General FAMILY PRACTICE 05/18/24 Fili Márquez MD 3 [facility] [address] [place] [address] Consulting Physician UROLOGY 12/12/24 [facility] - Vern Mcclure [address] [place] [address] [place] [address] 12/04/24 documented as of this encounter
--- NOTE | 2025-06-24 14:55 | ECG_ITS ---
Test Date: 2025-06-24 14:58:34 Measurements Intervals [place] Rate: 126 P: 22 DE: 201 QRS: -84 QRSD: 106 T: 37 QT: 325 QTc: 472 Interpretive Statements SINUS TACHYCARDIA LEFT AXIS DEVIATION INCOMPLETE RIGHT BUNDLE BRANCH BLOCK PATTERN CONSISTENT WITH PULMONARY DISEASE BASELINE ARTIFACT- I, II, III, AVR, AVL, AVF, V1-V6 ABNORMAL ECG Compared to ECG 06/23/2025 09:49:55 HEART RATE HAS INCREASED Electronically Signed On 06-24-2025 15:30:33 SECURITY PROFESSIONAL by Sergio Urena D.O.
[2025-06-24 15:08] LABS: Hematocrit 46.2 % (42.0-52.0); Hemoglobin 14.7 g/dL (14.0-18.0); Immature Granulocyte Percent A 0.2 % (0-0.5); Immature Platelet Fraction Pct 4.5 % (0.9-11.2); Lymphocytes Absolute Auto 2.81 K/mm3 (0.9-3.2); Mean Corpuscular HGB Conc 31.8 g/dl (32-36); Mean Corpuscular Hemoglobin 27.9 pg (26-34); Mean Corpuscular Volume 87.8 fl (80-100); Nucleated Red Blood Cells Absolute Auto 0.000 K/mm3 (0.0-0.012); Nucleated Red Blood Cells Perc 0.0 % (0.0-0.2); Platelet Count Result 112 k/mm3 (150-375); Red Blood Count 5.26 M/mm3 (4.6-6.20); White Blood Count 5.5 K/mm3 (4.5-10.0)
[2025-06-24 15:17] LABS: INR 1.2; Prothrombin Time 14.8 Seconds (11.1-14.7)
[2025-06-24 15:18] LABS: Partial Thromboplastin Time 33.0 Seconds (22.3-36.8)
[2025-06-24 15:21] LABS: Add Urine Microscopic? YES; Appearance Urine Clear (Clear); Glucose Urine UA 3+ mg/dL (Negative); Leukocyte Esterase Ur Negative LEU/UL (Negative); Nitrate Urine Negative (Negative); Specific Grav Ur 1.039 (1.001-1.035)
[2025-06-24 15:24] LABS: Alanine Aminotransferase 56 U/L (6-50); Albumin Level 4.4 g/dL (3.5-5.1); Alkaline Phosphatase 75 U/L (38-126); Anion Gap 18 mmol/L (4-12); Aspartate Amino Transferase 72 U/L (17-59); Bilirubin,Total 0.9 mg/dL (0.2-1.3); Blood Urea Nitrogen 29 mg/dL (9-20); Calcium 10.1 mg/dL (8.4-10.2); Carbon Dioxide 20 mmol/L (22-30); Chloride 99 mmol/L (98-107); Estimated Glomerular Filt Rate 46; Glucose 114 mg/dL (65-110); Potassium 3.6 mmol/L (3.4-5.0); Sodium 137 mmol/L (137-145); Total Protein 7.1 g/dL (6.3-8.2)
[2025-06-24] MEDS: SODIUM CHLORIDE 0.9% IV 1,000 ML 999 ML IV CONT ×3 (15:30→18:56)
[2025-06-24 15:39] LABS: CRP 17.5 mg/dL (<1.0)
[2025-06-24 15:43] LABS: Influenza A QL RT-PCR Negative (Negative); Influenza B QL RT-PCR Negative (Negative); RSV RNA, RT-PCR Negative (Negative); SARS-CoV-2 RNA PCR Negative (Negative)
[2025-06-24 16:00] LABS: Magnesium 2.3 mg/dL (1.6-2.3)
[2025-06-24 16:08] LABS: Alveolar/Arterial O2 Gradient 59.3 mmHg; Fractional Inspired Oxygen 21 %; HCO3 ABG 17.4 mEq/l (22.0-26.0); Oxygen Content ABG 16.0 %vol (16.0-22.0); Oxygen Saturation ABG 90.7 % (95.0-100.0); PCO2 ABG 27.8 mmHg (35.0-45.0); PO2 ABG 57.1 mmHg (80.0-100.0); PO2 FiO2 Ratio Arterial Blood 2.72 %
[2025-06-24 16:09] LABS: Modified Allen's Test Pass; Site Drawn RIGHT RADIAL
[2025-06-24 16:09] LABS: Troponin I 1.020 ng/mL (0.000-0.034)
[2025-06-24 16:13] LABS: Procalcitonin 13.4 ng/mL
[2025-06-24 16:29] LABS: Beta-Hydroxybutyrate/Acetoace. 0.55 mmol/L (0.02-0.27)
[2025-06-24] MEDS: CEFEPIME 2 GM in SODIUM CHLORIDE 0.9% IV 50 ML 100 ML IVPB (16:29)
--- NOTE | 2025-06-24 16:40 | ED_ITS ---
HPI - General Adult General Chief complaint: Unspecified Stated complaint: shaking Time Seen by Provider: 06/24/25 15:09 History of Present Illness HPI narrative: patient 80-year-old gentleman who presents emergency department with chief complaint of generalized shakiness the patient was seen in the emergency department last night diagnosed with pneumonia started on Zithromax the patient states throughout the evening he has run a fever reports that he feels generally unwell at this point upon initial presentation in triage the patient was tachycardic and febrile and room air saturation was 89% the patient does report that he has some discomfort in his abdomen patient reports he feels as though he needs to have diarrhea Related Data Allergies Allergy/AdvReac Type Severity Reaction Status Date / Time codeine Allergy Unknown Verified 06/24/25 16:18 Review of Systems 2 Review of Systems: A 10 system review of systems was completed on the patient and is negative except for what is stated in the HPI. Nursing and ancillary documentation was reviewed. Exam 2 Narrative: GENERAL: Ill-appearing, well-nourished, and in no acute distress. HEAD: Normocephalic, atraumatic. EYES: PERRLA and EOMI. ENT: Nares clear, no rhinorrhea or epistaxis. Mucous membranes moist. NECK: Supple. CHEST: Clear to auscultation. No respiratory distress. HEART: tachycardic rate and regular rhythm. No murmur heard. Normal peripheral pulses. ABDOMEN: Soft, mild tenderness to palpation, nondistended, normal active bowel sounds. EXTREMITIES: Normal range of motion. No edema. SKIN: Warm, dry, no rash. NEURO: No focal deficits. Alert and oriented x3. PSYCH: Normal mood and affect. Course Vital Signs Vital signs: Vital Signs Temperature 37.8 C H 06/24/25 14:46 Pulse Rate 153 H 06/24/25 14:46 Respiratory Rate 26 H 06/24/25 14:46 Blood Pressure 126/90 06/24/25 14:46 Pulse Oximetry 89 L 06/24/25 14:46 Oxygen Delivery Room Air 06/24/25 14:46 Temperature 36.5 C 06/24/25 14:56 Pulse Rate 95 06/24/25 16:25 Respiratory Rate 19 06/24/25 16:25 Blood Pressure 121/57 L 06/24/25 16:25 Pulse Oximetry 94 06/24/25 16:25 Oxygen Delivery Room Air 06/24/25 14:46 MDM Differential Diagnosis Differential Diagnosis: sepsis, pneumonia, intra-abdominal infection, mesenteric ischemia, ACS, patient's white blood cell count was 5.5 the patient had a significantly elevated CRP and procalcitonin patient also had a lactic acid that was very elevated patient received 30 per kilos normal saline boluses and lactic acid has improved. Patient was empirically started on cefepime and vancomycin EKG showed no ST elevations but the patient was tachycardic patient had elevated troponin at above 1.0 the case was discussed with the hospitalist plan will be to admit the patient cardiology will be consulted due to the troponin leak Lab Data 06/24/25 15:01 06/24/25 15:01 Labs: Lab Results 06/24/25 06/24/25 06/24/25 Range/Units 15:01 15:11 17:38 WBC 5.5 (4.5-10.0) K/mm3 RBC 5.26 (4.6-6.20) M/mm3 Hgb 14.7 (14.0-18.0) g/dL Hct 46.2 (42.0-52.0) % MCV 87.8 (80-100) fl MCH 27.9 D (26-34) pg MCHC 31.8 L (32-36) g/dl RDW 13.9 (11.5-14.5) % Plt Count 112 L (150-375) k/mm3 MPV 10.3 (7.4-10.4) fl Immature Gran % (Auto) 0.2 (0-0.5) % Neut % (Auto) 43.4 L (45.5-73.1) % Lymph % (Auto) 51.5 H (18.3-44.2) % Orange % (Auto) 2.9 (2.6-8.5) % Eos % (Auto) 1.3 (0-4.4) % Baso % (Auto) 0.7 (0.2-1.2) % Lymph # (Auto) 2.81 (0.9-3.2) K/mm3 Orange # (Auto) 0.2 (0.1-0.6) K/mm3 Eos # (Auto) 0.1 (0-0.3) K/mm3 Baso # (Auto) 0.0 (0.0-0.1) K/mm3 Abs Immat Gran (auto) 0.01 (0.00-0.031) K/mm3 Absolute Neuts (auto) 2.4 (1.3-6.7) K/mm3 Absolute Nucleated RBC 0.000 (0.0-0.012) K/mm3 Nucleated RBC % 0.0 (0.0-0.2) % % Immature Plt Fraction 4.5 (0.9-11.2) % PT 14.8 H (11.1-14.7) Seconds INR 1.2 APTT 33.0 (22.3-36.8) Seconds Sodium 137 (137-145) mmol/L Potassium 3.6 (3.4-5.0) mmol/L Chloride 99 (98-107) mmol/L Carbon Dioxide 20 L (22-30) mmol/L Anion Gap 18 H (4-12) mmol/L BUN 29 H D (9-20) mg/dL Creatinine 1.47 H (0.7-1.3) mg/dL Estim Creat Clear Calc Not Reportable Estimated GFR 46 L (59 - ) Glucose 114 H (65-110) mg/dL Lactic Acid 8.7 H* Pending (0.7-2.0) mmol/L Calcium 10.1 (8.4-10.2) mg/dL Magnesium 2.3 (1.6-2.3) mg/dL Total Bilirubin 0.9 (0.2-1.3) mg/dL AST 72 H (17-59) U/L ALT 56 H (6-50) U/L Alkaline Phosphatase 75 (38-126) U/L Troponin I 1.020 H* (0.000-0.034) ng/mL C-Reactive Protein 17.5 H (<1.0) mg/dL Total Protein 7.1 (6.3-8.2) g/dL Albumin 4.4 (3.5-5.1) g/dL Beta-Hydroxybutyrate/Acetoacetate 0.55 H (0.02-0.27) mmol/L Procalcitonin 13.4 ng/mL Urine Color Yellow (Yellow) Urine Appearance Clear (Clear) Urine pH 5.0 (5.0-9.0) Ur Specific Maybee 1.039 H (1.001-1.035) Urine Protein 1+ H (Negative) mg/dL Urine Glucose (UA) 3+ H (Negative) mg/dL Urine Ketones 1+ H (Negative) mg/dL Ur Blood (Man) 1+ H (Negative) Urine Nitrate Negative (Negative) Urine Bilirubin Negative (Negative) Urine Urobilinogen 1.0 (<2.0) mg/dL Leukocyte Esterase Rfl Negative (Negative) YARA/UL Urine RBC 0-2 (0-2) /hpf Urine WBC 0-5 (0-3) /hpf Ur Squamous Epith Cells Occasional (Few) /hpf Urine Bacteria None seen /hpf Urine Casts 3-5 Influenza A (RT-PCR) Negative (Negative) Influenza B (RT-PCR) Negative (Negative) RSV (RT-PCR) Negative (Negative) SARS-CoV-2 RNA (RT-PCR) Negative (Negative) ABG Data ABG results: 06/24/25 16:04 Puncture Site Right radial ABG pH 7.415 ABG pCO2 27.8 L ABG pO2 57.1 L ABG PO2/FiO2 Ratio 2.72 ABG HCO3 17.4 L ABG O2 Saturation 90.7 L ABG O2 Content 16.0 ABG Base Excess -5.7 A-a Gradient 59.3 Oxyhemoglobin 89.0 L Total Hemoglobin 12.8 O2 Delivery Device Room air O2 Liters/Min Not Reportable FiO2 21 Imaging Data Radiologist's impression: ITS Impressions Chest X-Ray 06/24/25 15:19 Impression: No acute cardiopulmonary abnormality. Critical Care Time Critical Care Time Critical Care Time: Yes Indication: Sepsis, elevated troponin, Time Type: Intermittent Initial evaluation, discuss w/ involved parties, attempting to gather old records: 10 minutes Documenting medical record: 5 minutes Review of results (EKG's, labs, imaging): 5 minutes Serial repeat bedside evaluation: 10 minutes Discussing case with multiple memebers of the care team and consultants: 5 minutes Total Critical Care Time: 35 Discharge Plan Discharge Clinical Impression: Sepsis, Elevated troponin Patient Disposition: Still a Patient Condition: Stable Patient Language: Egyptian Prescriptions: No Action prednisone 50 mg tablet 50 mg PO DAILY 5 Days Qty: 5 0RF Anti-Itch(diphenhyd) with Zinc 1-0.1 % cream 1 applic topical QID PRN (Reason: itching) Qty: 28 0RF azithromycin 250 mg tablet See Rx Instructions .ROUTE .COMPLEX Qty: 6 0RF Rx Instructions: For 250 mg dose pack: take 500 mg today (day 1), then 250 mg for 4 days (days 2-5) Follow-up/Referrals: Desmond,Zenaida Durham MD [Primary Care Provider, Unknown] Time of Disposition: 18:41
[2025-06-24] MEDS: VANCOMYCIN 1,250 MG/NS 250 ML 1,250 MG/250 ML BAG 166.67 MG IVPB ×2 (17:41→19:19)
[2025-06-24] MEDS: ACETAMINOPHEN 500 MG TABLET 1000 MG PO (18:56)
--- NOTE | 2025-06-24 19:55 | WPCEDHO ---
ED Hand Off Checklist All vitals saved:y IV Site documented:y All med administrations documented:y I did not start the maintenance fluids. I didn't have an extra pump and did't want to free flow it Triage Note Triage Note Pt to ED c/o generalized 06/24/25 14:46 shakiness. Reports was d/c yesterday with pneumonia, started rx last noc. Pt tachypneic, unable to speak in full sentences . Allergies codeine Allergy (Verified 06/24/25 16:18) Unknown Administered/Completed Medications Discontinued Medications Acetaminophen (Acetaminophen 500 Mg Tablet) 1,000 mg PO ONCE STA Stop: 06/24/25 18:36 Last Admin: 06/24/25 18:56 Dose: 1,000 mg Documented By: ANT Sodium Chloride (Normal Saline Iv) 1,000 mls @ 999 mls/hr IV CONT .Q1H1M STA Stop: 06/24/25 16:14 Last Infusion: 06/24/25 17:41 Dose: Infused Documented By: Admin: 06/24/25 15:30 Dose: 999 mls/hr Documented By: ANT Sodium Chloride (Normal Saline Iv) 1,000 mls @ 999 mls/hr IV CONT .Q1H1M STA Stop: 06/24/25 16:15 Last Infusion: 06/24/25 16:36 Dose: Infused Documented By: Admin: 06/24/25 15:31 Dose: 999 mls/hr Documented By: ANT Cefepime HCl 2 gm/ Sodium (Chloride) 50 mls @ 100 mls/hr IVPB ONCE STA Stop: 06/24/25 16:19 Last Infusion: 06/24/25 16:56 Dose: Infused Documented By: Admin: 06/24/25 16:29 Dose: 100 mls/hr Documented By: ANT Sodium Chloride (Normal Saline Iv) 1,000 mls @ 999 mls/hr IV CONT .Q1H1M STA Stop: 06/24/25 16:56 Last Admin: 06/24/25 18:56 Dose: 999 mls/hr Documented By: ANT Vancomycin HCl (Vancomycin 1,250 Mg/Ns 250 Ml) 1,250 mg in 250 mls @ 166.667 mls/hr IVPB ONCE ONE Stop: 06/24/25 17:59 Last Infusion: 06/24/25 19:16 Dose: Infused Documented By: Admin: 06/24/25 17:41 Dose: 166.67 mls/hr Documented By: ANT Vancomycin HCl (Vancomycin 1,250 Mg/Ns 250 Ml) 1,250 mg in 250 mls @ 166.667 mls/hr IVPB ONCE ONE Stop: 06/24/25 19:29 Last Admin: 06/24/25 19:19 Dose: 166.67 mls/hr Documented By: NATIVIDAD Interventions/Assessments General Assessment Start: 06/24/25 14:44 Freq: Status: Active Protocol: Document 06/24/25 15:23 ANT (Rec: 06/24/25 16:24 ANT [id number]) GA Respiratory Assessment Symptoms Cough,Shortness of Breath at Rest,Shortness of Breath With Exertion Respiratory Rate (12 20 -20 breaths/min) Effort Labored Pattern Regular Depth Normal Chest Expansion Symmetrical Adult Capillary Normal/Less than 2 Seconds Refill Cough Description Productive Cough Frequency Continuous Cough Reflex Present Oxygen Delivery Room Air Method Pulse Oximetry (90- 95 100 %) IV / Saline Lock, Insert Start: 06/24/25 14:44 Freq: Status: Active Protocol: Document 06/24/25 18:55 ANT (Rec: 06/24/25 18:56 ANT [id number]) IV Assessment Peripheral Access Left Forearm IV Catheter Access Initiated IV Insertion Date 06/24/25 IV Insertion Time 18:56 Catheter Gauge 20 IV Site Assessment WNL IV Care and WNL Maintenance Last Vital Signs Temperature 100.1 F H 06/24/25 18:30 Pulse Rate 91 06/24/25 18:33 Respiratory Rate 25 H 06/24/25 18:33 Pulse Oximetry 93 06/24/25 19:30 Blood Pressure 107/60 06/24/25 18:33 Blood Pressure Mean 73 06/24/25 18:33 Oxygen Delivery Room Air 06/24/25 14:46 Weight 106.2 kg 06/24/25 15:57 Last Result - Abnormals Only MCHC 31.8 g/dl (32-36) L 06/24/25 15:01 Plt Count 112 k/mm3 (150-375) L 06/24/25 15:01 Neut % (Auto) 43.4 % (45.5-73.1) L 06/24/25 15:01 Lymph % (Auto) 51.5 % (18.3-44.2) H 06/24/25 15:01 PT 14.8 Seconds (11.1-14.7) H 06/24/25 15:01 ABG pCO2 27.8 mmHg (35.0-45.0) L 06/24/25 16:04 ABG pO2 57.1 mmHg (80.0-100.0) L 06/24/25 16:04 ABG HCO3 17.4 mEq/l (22.0-26.0) L 06/24/25 16:04 ABG O2 Saturation 90.7 % (95.0-100.0) L 06/24/25 16:04 Oxyhemoglobin 89.0 % THb (90.0-100.0) L 06/24/25 16:04 Carbon Dioxide 20 mmol/L (22-30) L 06/24/25 15: Anion Gap 18 mmol/L (4-12) H 06/24/25 15: BUN 29 mg/dL (9-20) H D 06/24/25 15: Creatinine 1.47 mg/dL (0.7-1.3) H 06/24/25 15: Estimated GFR 46 (59-) L 06/24/25 15: Glucose 114 mg/dL (65-110) H 06/24/25 15:01 Lactic Acid 8.7 mmol/L (0.7-2.0) H* 06/24/25 15:01 AST 72 U/L (17-59) H 06/24/25 15: ALT 56 U/L (6-50) H 06/24/25 15:01 Troponin I 1.020 ng/mL (0.000-0.034) H* 06/24/25 15:01 C-Reactive Protein 17.5 mg/dL (<1.0) H 06/24/25 15:01 Beta-Hydroxybutyrate/Acetoacetate 0.55 mmol/L (0.02-0.27) H 06/24/25 15: Ur Specific [place] 1.039 (1.001-1.035) H 06/24/25 15:11 Urine Protein 1+ mg/dL (Negative) H 06/24/25 15:11 Urine Glucose (UA) 3+ mg/dL (Negative) H 06/24/25 15:11 Urine Ketones 1+ mg/dL (Negative) H 06/24/25 15:11 Ur Blood (Man) 1+ (Negative) H 06/24/25 15:11 Most Recent Suicide Severity Rating Suicide Severity Rating NO RISK INDICATED 06/24/25 14:46
--- NOTE | 2025-06-24 20:20 | ADMGEN ---
This patient, Mario Rios, was admitted to IMU Room 201-01. Patient/family oriented to hospital policies and general routines including ID bracelet, bed and alarms, visiting hours, pain management, procedures, bathroom and other care routines, personal items, smoking policy, room service/diet, and visiting hours. Information on how to activate the Rapid Response Team has been discussed. Patient/Family are encouraged to report perceived risks to care and to ask questions if they do not understand what they are told or what they should do.
[2025-06-24] MEDS: ENOXAPARIN 120 MG/0.8 ML SYRINGE 106 MG SUB-Q (20:52)
[2025-06-24] MEDS: SODIUM CHLORIDE 0.9% IV 1,000 ML 125 ML IV CONT (20:53)
[2025-06-24 21:13] LABS: Troponin I 2.620 ng/mL (0.000-0.034)
--- NOTE | 2025-06-24 23:33 | PM.IMHP2 ---
H&P: HPI History of Present Illness Date/Time: 06/24/25 23:33 Chief Complaint: Fever and shaking Narrative: This is an 80-year-old male patient who had been seen in the emergency room the prior day and was diagnosed with pneumonia. He had been sent home with a Z-Kenny. Today he came back into the emergency room with fever and rigors. Patient was found to be tachycardic and febrile with O2 saturations of 89%. His T-max was 100.1?. His O2 saturation was 89% he was placed on oxygen at 2 L per nasal cannula. His blood pressure was slightly low at 89/58. ABGs were performed and he was found to be hypoxic. His anion gap was 18. Blood sugars 126. His CRP 17.5. He was negative for viral serology influenza a, influenza B, RSV, and COVID were negative. His lactic had been 8.7 and came down to normal. CTA of chest/abdomen/pelvis was read as a following1. Complex left lobe liver lesion, no abscess is not excluded. 2. 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 There is no evidence of pancreatitis. 3. Contrast-enhanced MRI is recommended to assess Troponin 1.020 and 2.620. Patient denies any chest pain. He denies any cough. He endorses a fever. Cardiology has been consulted. Blood cultures were obtain. The patient was started on subcu Lovenox. He was given an aspirin. He was given 3 L of IV fluids. The patient is being admitted to observation status on the date of service of 06/24/2025. Review of Systems Constitutional: Constitutional: Reports as per HPI and Reports no additional constitutional complaints Eyes: Eyes: Reports as per HPI and Reports no additional eye complaints ENT: Reports no additional ear, nose, mouth, and throat complaints and Reports Normal hearing present Cardiovascular: Cardiovascular: Reports no additional cardiovascular complaints Respiratory: Respiratory: Reports as per HPI and Reports no additional respiratory complaints Gastrointestinal: Gastrointestinal: Reports as per HPI and Reports no additional gastrointestinal complaints Musculoskeletal: Musculoskeletal: Reports no additional musculoskeletal complaints Integumentary/Breasts: Skin/Breast: Reports system reviewed and no additional complaints, except as docu Neurologic: Reports no additional neurologic complaints and Reports Normal hearing present Psychiatric: Psychiatric: Reports no additional psychiatric complaints and Reports as per HPI Hematologic/Lymphatic: Hematologic/Lymphatic: Reports no additional hematologic/lymphatic complaints Allergic/Immunologic: Allergic/Immunologic: Reports no additional allergic/immunologic complaints [facility] Past Medical History Medical History (Updated 06/25/25 @ 02:19 by Nayeli Euceda APRN) DM2 (diabetes mellitus, type 2) Seizure disorder Hyperlipidemia Hypertension Surgical History Surgical History (Updated 06/25/25 @ 02:24 by Nayeli Euceda APRN) H/O prostatectomy History of cataract extraction Hx of cholecystectomy Family History Family History (Updated 06/25/25 @ 02:23 by Nayeli Euceda APRN) Father Prostate carcinoma Diabetes mellitus Mother Diabetes mellitus Heart disease Social History Social History (Updated 06/25/25 @ 02:24 by Nayeli Euceda APRN) Social History: The patient is to his 3rd . He has 5 children. He is retired. Code status full code Smoking packs per day: 1 Smoking cigarettes per day: 20.0 Years smoked: 10 Smoking pack-years: 10.00 Smoking status: Former smoker Tobacco type: cigarettes Alcohol intake: never Substance use: never Substance use type: does not use Lack of Transportation: No Lack of Food: Never True Current Housing: I Have Housing Concerned About Future Housing: No Difficulty Paying Gas/Electric Bills: No Difficulty Paying for Meds: No Currently Unemployed: No Education: High School Diploma/GED Difficulty w/ Childcare or Family Care: No Spiritual care concerns: No Meds Home Medications and Allergies Home Medications ?Medication ?Instructions ?Recorded ?Confirmed ?Type amlodipine 5 mg tablet 5 mg PO .daily] 06/24/25 06/24/25 History aspirin 81 mg capsule 81 mg PO DAILY 06/24/25 06/24/25 History atorvastatin 20 mg tablet 20 mg PO DAILY 06/24/25 06/24/25 History blood-glucose meter (OneTouch 06/24/25 06/24/25 History Ultra2 Meter) calcium 600 mg capsule 600 mg PO DAILY 06/24/25 06/24/25 History celecoxib 100 mg capsule 100 mg PO DAILY 06/24/25 06/24/25 History empagliflozin 25 mg tablet 25 mg PO DAILY 06/24/25 06/24/25 History (Jardiance) levetiracetam 500 mg tablet 500 mg PO DAILY 06/24/25 06/24/25 History lisinopril 20 1 tablet PO BID 06/24/25 06/24/25 History mg-hydrochlorothiazide 12.5 mg tablet metformin 500 mg tablet,extended 500 mg PO BID-TID 06/24/25 06/24/25 History release 24 hr Allergies Allergy/AdvReac Type Severity Reaction Status Date / Time codeine Allergy Unknown Verified 06/24/25 20:23 Vital Signs Vital Signs - 24 hr 06/24/25 14:46 06/24/25 14:56 06/24/25 15:01 Temperature 100.1 F H 97.7 F Pulse Rate 153 H 132 H 119 H Respiratory Rate 26 H 35 H 24 H Blood Pressure 126/90 162/76 H 153/72 H Pulse Oximetry 89 L 95 93 Oxygen Delivery Room Air Oxygen Flow Rate Fraction of Inspired Oxygen 06/24/25 15:23 06/24/25 15:45 06/24/25 16:25 Temperature Pulse Rate 88 95 Respiratory Rate 20 24 H 19 Blood Pressure 126/62 121/57 L Pulse Oximetry 95 93 94 Oxygen Delivery Oxygen Flow Rate Fraction of Inspired Oxygen 06/24/25 18:25 06/24/25 18:30 06/24/25 18:30 Temperature 100.1 F H Pulse Rate 88 87 87 Respiratory Rate 24 H 14 24 H Blood Pressure 107/60 Pulse Oximetry 93 95 97 Oxygen Delivery Oxygen Flow Rate Fraction of Inspired Oxygen 06/24/25 18:33 06/24/25 18:54 06/24/25 19:14 Temperature Pulse Rate 91 Respiratory Rate 25 H Blood Pressure 107/60 Pulse Oximetry 92 95 93 Oxygen Delivery Oxygen Flow Rate Fraction of Inspired Oxygen 06/24/25 19:15 06/24/25 19:30 06/24/25 20:26 Temperature 99.0 F Pulse Rate 81 Respiratory Rate 18 Blood Pressure 89/58 L Pulse Oximetry 94 93 96 Oxygen Delivery Oxygen Flow Rate Fraction of Inspired Oxygen 06/24/25 20:29 06/24/25 20:39 06/24/25 21:00 Temperature Pulse Rate 80 Respiratory Rate Blood Pressure 99/52 L Pulse Oximetry 97 97 Oxygen Delivery Nasal Cannula Nasal Cannula Oxygen Flow Rate 2 2 Fraction of Inspired Oxygen 28 06/24/25 22:00 Temperature Pulse Rate 67 Respiratory Rate Blood Pressure Pulse Oximetry Oxygen Delivery Oxygen Flow Rate Fraction of Inspired Oxygen Exam Const: General: cooperative, comfortable, no acute distress, well developed, awake, Physically active, average body habitus and well nourished Nutritional Appearance: average body habitus and well nourished Orientation/consciousness: oriented to person, oriented to place, oriented to time and patient oriented x3 Limitations: no limitations Other: Ill-appearing HENMT: Head: normal to inspection, No palpable skull fracture present, normocephalic and atraumatic Eyes: General: appearance normal, both eyes and all related structures Alignment and Position: alignment normal Periorbital: periorbital findings normal Eyelids: eyelids normal EOM: EOMs intact bilaterally Neck: Neck: normal visual inspection, full ROM and no lymphadenopathy Chest: Chest palpation & inspection: normal inspection of the chest Resp: Effort & Inspection: normal respiratory effort Auscultation: clear to auscultation bilaterally Cardio: Palpation: normal PMI Rate: regular rate Rhythm: regular rhythm Heart sounds: S1 normal heart sound present and S2 normal heart sound present Peripheral pulses: Peripheral pulses 2+ throughout GI: Inspection: normal to inspection Auscultation: normal bowel sounds Rectal Exam: deferred : General: Yes no CVA tenderness Back/Spine/Pelvis: Back: no CVA tenderness Cervical Spine: cervical ROM normal Skin: General skin exam: normal color Lesions: no lesions Rashes: no rashes Trauma: no lacerations or abrasions Wounds: no wounds Nails: normal Other: Male balding Neuro: General: oriented to person, oriented to place, oriented to time and patient oriented x3 Cranial nerves: Yes Normal hearing present Motor exam (neuro): 5/5 motor strength present throughout Sensory Exam: normal sensation Extrem: General: normal to inspection Right upper extremity: normal to inspection and shoulder/upper arm Left upper extremity: normal to inspection and shoulder/upper arm Right lower extremity: normal to inspection Left lower extremity: normal to inspection Psych: Appearance: grossly normal Mental Status: mental status grossly normal Speech and movement: Normal speech and movement present Affect: normal affect Attitude: cooperative Thought process: Normal thought process present Thought content: Yes Normal thought content present Insight: Good insight present (Psych) Judgement: Good judgement present (Psych) Results Labs Labs: Short CBC 06/24/25 Range/Units 15:01 WBC 5.5 (4.5-10.0) K/mm3 Hgb 14.7 (14.0-18.0) g/dL Hct 46.2 (42.0-52.0) % Plt Count 112 L (150-375) k/mm3 BMP 06/24/25 15:01 Sodium 137 Potassium 3.6 Chloride 99 Carbon Dioxide 20 L BUN 29 H D Creatinine 1.47 H Glucose 114 H Calcium 10.1 Cardiac Enzymes 06/24/25 06/24/25 Range/Units 15:01 20:29 Troponin I 1.020 H* 2.620 H* D (0.000-0.034) ng/mL Liver Function 06/24/25 Range/Units 15:01 Total Bilirubin 0.9 (0.2-1.3) mg/dL AST 72 H (17-59) U/L ALT 56 H (6-50) U/L Alkaline Phosphatase 75 (38-126) U/L Albumin 4.4 (3.5-5.1) g/dL Urine 06/24/25 Range/Units 15:11 Urine Color Yellow (Yellow) Urine Appearance Clear (Clear) Urine pH 5.0 (5.0-9.0) Ur Specific [place] 1.039 H (1.001-1.035) Urine Protein 1+ H (Negative) mg/dL Urine Glucose (UA) 3+ H (Negative) mg/dL ECG Interpretation: Test Date: 2025-06-24 14:58:34 Measurements Intervals [place] Rate: 126 P: 22 NM: 201 QRS: -84 QRSD: 106 T: 37 QT: 325 QTc: 472 Interpretive Statements SINUS TACHYCARDIA LEFT AXIS DEVIATION INCOMPLETE RIGHT BUNDLE BRANCH BLOCK PATTERN CONSISTENT WITH PULMONARY DISEASE BASELINE ARTIFACT- I, II, III, AVR, AVL, AVF, V1-V6 ABNORMAL ECG Compared to ECG 06/23/2025 09:49:55 HEART RATE HAS INCREASED Electronically Signed On 06-24-2025 15:[address] scan - abdomen: Radiologist's impression: Impressions Chest X-Ray 06/24/25 15:19 Impression: No acute cardiopulmonary abnormality. Chest/Abdomen/Pelvis CTA 06/24/25 18:05 IMPRESSION: 1. Complex left lobe liver lesion, no abscess is not excluded. 2. 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 There is no evidence of pancreatitis. 3. Contrast-enhanced MRI is recommended to assess Quality VTE Prophylaxis VTE prophylaxis: mechanical ordered Assessment and Plan Assessment and plan (1) Sepsis: Code(s): A41.9 - Sepsis, unspecified organism Status: Acute Assessment and Plan: -the patient initially was started on azithromycin outpatient silva. The patient continued to have fever with rigors. Initially it was felt that the patient had pneumonia. CT scan shows the followingChest/Abdomen/Pelvis CTA 06/24/25 18:05 IMPRESSION: 1. Complex left lobe liver lesion, no abscess is not excluded. 2. 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 There is no evidence of pancreatitis. 3. Contrast-enhanced MRI is recommended to assess -the patient was given 3 L of IV fluids. It was also continue with maintenance fluids. -blood cultures are pending. -the patient was continued with cefepime and vancomycin. -he had a T-max of 100.5?. -he was negative for viral panel. -he was hypoxic with tachycardia and hypotension upon arrival to ER. Oxygen was applied it O2 2 L per nasal cannula. = MRI of the abdomen has been ordered for tomorrow. -his lactic was initially 8.7 but is now normal. (2) Cystic mass of pancreas: Code(s): K86.2 - Cyst of pancreas Status: Acute Assessment and Plan: -Chest/Abdomen/Pelvis CTA 06/24/25 18:05 IMPRESSION: 1. Complex left lobe liver lesion, no abscess is not excluded. 2. 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 There is no evidence of pancreatitis. 3. Contrast-enhanced MRI is recommended to assess -MRI has been ordered as suggested. -may consider GI consult. (3) Elevated troponin: Code(s): R79.89 - Other specified abnormal findings of blood chemistry Status: Acute Assessment and Plan: -acute possibly ischemic demand from sepsis. -cardiology has been consulted. -initially the patient was given subcu Lovenox in the emergency room. No further Lovenox has been ordered. Will defer to Cardiology for further recommendations. -an echo has been ordered. -test Date: 2025-06-24 14:58:34 Measurements Intervals [place] Rate: 126 P: 22 NM: 201 QRS: -84 QRSD: 106 T: 37 QT: 325 QTc: 472 Interpretive Statements SINUS TACHYCARDIA LEFT AXIS DEVIATION INCOMPLETE RIGHT BUNDLE BRANCH BLOCK PATTERN CONSISTENT WITH PULMONARY DISEASE BASELINE ARTIFACT- I, II, III, AVR, AVL, AVF, V1-V6 ABNORMAL ECG Compared to ECG 06/23/2025 09:49:55 HEART RATE HAS INCREASED Electronically Signed On 06-24-2025 15:30:33 [employer] by Sergio Urena D.O. -troponin 1.020, 2.620, 1.320 respectively. I will check another 1 in 3 hours. -the patient denies any chest pain. -he was kept NPO for possible procedures. (4) DM2 (diabetes mellitus, type 2): Code(s): E11.9 - Type 2 diabetes mellitus without complications Status: Acute Assessment and Plan: -Accu-Cheks every 6 hours with sliding scale insulin and hypoglycemic protocol. -he is NPO at this time. -check A1c if not performed in the last 3 months. -hold Jardiance at this time. (5) Hyperlipidemia: Code(s): E78.5 - Hyperlipidemia, unspecified Status: Acute Assessment and Plan: -the patient is NPO at this time therefore atorvastatin has been on hold. (6) Hypertension: Code(s): I10 - Essential (primary) hypertension Status: Acute Assessment and Plan: -the patient is hypotensive and he is NPO at this time. -p.r.n. hydralazine with parameters. -amlodipine is currently on hold. (7) Seizure disorder: Code(s): G40.909 - Epilepsy, unspecified, not intractable, without status epilepticus Status: Acute Assessment and Plan: -the patient stated that he did have a workup for seizures and is not sure why he is having seizures. -home medications stated that he is on Keppra daily and is home dose will need to be verified. Should the patient be on Keppra twice a day? -seizure precautions. -p.o. medication was changed to IV.
[2025-06-25] VITALS (17 sets, daily range): BP systolic 91–139; BP diastolic 45–63; PULSE 62–90; RESP 14–24; TEMP 36.5–37.6; O2SAT 96–100
[2025-06-25 01:46] LABS: Estimated CRCL calculation 53 ml/min; Estimated Glomerular Filt Rate > 60
[2025-06-25 02:07] LABS: Troponin I 1.320 ng/mL (0.000-0.034)
[2025-06-25 03:40] LABS: Hemoglobin A1C 7.0 % (<5.7)
[2025-06-25] MEDS: CEFEPIME 2 GM in SODIUM CHLORIDE 0.9% IV 50 ML 100 ML IVPB ×2 (04:04→17:08)
[2025-06-25] MEDS: SODIUM CHLORIDE 0.9% IV 1,000 ML 125 ML IV CONT ×3 (04:06→19:50)
[2025-06-25 06:15] LABS: Anion Gap 5 mmol/L (4-12); Blood Urea Nitrogen 26 mg/dL (9-20); Calcium 8.1 mg/dL (8.4-10.2); Carbon Dioxide 22 mmol/L (22-30); Chloride 111 mmol/L (98-107); Estimated CRCL calculation 58 ml/min; Estimated Glomerular Filt Rate > 60; Glucose 87 mg/dL (65-110); Potassium 3.6 mmol/L (3.4-5.0); Sodium 138 mmol/L (137-145)
[2025-06-25 06:27] LABS: Troponin I 0.815 ng/mL (0.000-0.034)
[2025-06-25] MEDS: levETIRAcetam 500MG/NACL 100ML 500 MG/100 ML BAG 400 MG IVPB ×2 (08:56→17:10)
--- NOTE | 2025-06-25 10:39 | PM.CNCAR ---
Assessment and Plan Assessment and plan (1) Elevated troponin: Code(s): R79.89 - Other specified abnormal findings of blood chemistry Status: Acute (2) Hypertension: Code(s): I10 - Essential (primary) hypertension Status: Acute (3) Hyperlipidemia: Code(s): E78.5 - Hyperlipidemia, unspecified Status: Acute (4) Cystic mass of pancreas: Code(s): K86.2 - Cyst of pancreas Status: Acute (5) Seizure disorder: Code(s): G40.909 - Epilepsy, unspecified, not intractable, without status epilepticus Status: Acute Plan -sepsis, unknown source so far -hypotension on admission -elevated troponins -cystic lesion of the pancreas, a lesion of liver -history of hypertension -history of diabetes -recent diagnosis of seizure disorder a month ago -in regards to sepsis, patient presents here to the hospital with fever and chills. CT imaging shows a spot in the liver and the pancreas but no pneumonia. Being treated with antibiotics -in regards to troponin elevation, elevated troponins but patient denies chest pain and no ischemic changes on EKG. Obtain echocardiogram to assess. This could be demand ischemia from sepsis. -regards to hepatic lesion and cystic lesion of the pancreas, patient is scheduled to undergo MRI to further define. -in regards to history of hypertension, at home he takes amlodipine, lisinopril-HCTZ but currently on hold due to soft blood pressure low blood pressure on admission. -regards to history of seizures with continue seizure medicine History of Present Illness History of Present Illness Consult date/time: 06/25/25 10:39 Requesting physician: Jose Francisco Rios MD Consult reason: Other (Elevated troponins) Reason For Visit: sepsis, elevated troponin Narrative: 80-year-old patient with history of hypertension, hyperlipidemia, diabetes, seizure disorder who apparently was in the ER 1 day prior to admission with pneumonia and was prescribed Z-Kenny and discharged home. Came back with chills and fever. He was hypoxic as well. Soft blood pressures. T-max over 24 hours to 37.8 centigrade. Patient denies cough, shortness of breath, chest pain, lower extremity edema, abdominal pain, nausea or vomiting. He stated that he was diagnosed with a seizure a month ago at [facility] White cell count 5.5 kg, creatinine and [place] 1.5 and today 1. Troponins 1, 2.6, 1.3, 0.8. EKG reviewed and was myself sinus tachycardia, left axis deviation, incomplete right bundle branch block, poor R-wave progression. CTA chest abdomen and pelvis:1. Complex left lobe liver lesion, no abscess is not excluded. 2. 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 There is no evidence of pancreatitis. 3. Contrast-enhanced MRI is recommended to assess 4-pulmonary embolism was ruled out Review of Systems Review of Systems: All systems reviewed & are unremarkable except as noted in HPI and below Constitutional: Comments: Fever and chills Eyes: Comments: No eye discharge ENT: Comments: No epistaxis Cardiovascular: Comments: No chest pain Respiratory: Comments: No shortness of breath Gastrointestinal: Comments: No abdominal pain Genitourinary: Comments: No dysuria Musculoskeletal: Comments: No joint swelling Integumentary/Breasts: Comments: No ranch Neurologic: Comments: Had ECG a month ago. Otherwise no headaches Psychiatric: Comments: No depression Endocrine: Comments: No polyuria Hematologic/Lymphatic: Comments: No bleeding Allergic/Immunologic: Comments: No hives PMFSH Past Medical History Medical History DM2 (diabetes mellitus, type 2) Seizure disorder Hyperlipidemia Hypertension Surgical History Surgical History H/O prostatectomy History of cataract extraction Hx of cholecystectomy Family History Family History Father Prostate carcinoma Diabetes mellitus Mother Diabetes mellitus Heart disease Social History Social History Social History: The patient is to his 3rd . He has 5 children. He is retired. Code status full code Smoking packs per day: 1 Smoking cigarettes per day: 20.0 Years smoked: 10 Smoking pack-years: 10.00 Smoking status: Former smoker Tobacco type: cigarettes Alcohol intake: never Substance use: never Substance use type: does not use Lack of Transportation: No Lack of Food: Never True Current Housing: I Have Housing Concerned About Future Housing: No Difficulty Paying Gas/Electric Bills: No Difficulty Paying for Meds: No Currently Unemployed: No Education: High School Diploma/GED Difficulty w/ Childcare or Family Care: No Spiritual care concerns: No Meds Home Medications and Allergies Home Medications ?Medication ?Instructions ?Recorded ?Confirmed ?Type amlodipine 5 mg tablet 5 mg PO .daily] 06/24/25 06/24/25 History aspirin 81 mg capsule 81 mg PO DAILY 06/24/25 06/24/25 History atorvastatin 20 mg tablet 20 mg PO DAILY 06/24/25 06/24/25 History blood-glucose meter (OneTouch 06/24/25 06/24/25 History Ultra2 Meter) calcium 600 mg capsule 600 mg PO DAILY 06/24/25 06/24/25 History celecoxib 100 mg capsule 100 mg PO DAILY 06/24/25 06/24/25 History empagliflozin 25 mg tablet 25 mg PO DAILY 06/24/25 06/24/25 History (Jardiance) levetiracetam 500 mg tablet 500 mg PO DAILY 06/24/25 06/24/25 History lisinopril 20 1 tablet PO BID 06/24/25 06/24/25 History mg-hydrochlorothiazide 12.5 mg tablet metformin 500 mg tablet,extended 500 mg PO BID-TID 06/24/25 06/24/25 History release 24 hr Allergies Allergy/AdvReac Type Severity Reaction Status Date / Time codeine Allergy Unknown Verified 06/24/25 20:23 Vital Signs Vital Signs - 24 hr 06/24/25 14:46 06/24/25 14:56 06/24/25 15:01 Temperature 37.8 C H 36.5 C Pulse Rate 153 H 132 H 119 H Respiratory Rate 26 H 35 H 24 H Blood Pressure 126/90 162/76 H 153/72 H Pulse Oximetry 89 L 95 93 Oxygen Delivery Room Air Oxygen Flow Rate Fraction of Inspired Oxygen 06/24/25 15:23 06/24/25 15:45 06/24/25 16:25 Temperature Pulse Rate 88 95 Respiratory Rate 20 24 H 19 Blood Pressure 126/62 121/57 L Pulse Oximetry 95 93 94 Oxygen Delivery Oxygen Flow Rate Fraction of Inspired Oxygen 06/24/25 18:25 06/24/25 18:30 06/24/25 18:30 Temperature 37.8 C H Pulse Rate 88 87 87 Respiratory Rate 24 H 14 24 H Blood Pressure 107/60 Pulse Oximetry 93 95 97 Oxygen Delivery Oxygen Flow Rate Fraction of Inspired Oxygen 06/24/25 18:33 06/24/25 18:54 06/24/25 19:14 Temperature Pulse Rate 91 Respiratory Rate 25 H Blood Pressure 107/60 Pulse Oximetry 92 95 93 Oxygen Delivery Oxygen Flow Rate Fraction of Inspired Oxygen 06/24/25 19:15 06/24/25 19:30 06/24/25 20:26 Temperature 37.2 C Pulse Rate 81 Respiratory Rate 18 Blood Pressure 89/58 L Pulse Oximetry 94 93 96 Oxygen Delivery Oxygen Flow Rate Fraction of Inspired Oxygen 06/24/25 20:29 06/24/25 20:39 06/24/25 21:00 Temperature Pulse Rate 80 Respiratory Rate Blood Pressure 99/52 L Pulse Oximetry 97 97 Oxygen Delivery Nasal Cannula Nasal Cannula Oxygen Flow Rate 2 2 Fraction of Inspired Oxygen 28 06/24/25 22:00 06/25/25 00:00 06/25/25 00:00 Temperature 36.5 C Pulse Rate 67 66 68 Respiratory Rate 16 Blood Pressure 95/51 L Pulse Oximetry 100 Oxygen Delivery Oxygen Flow Rate Fraction of Inspired Oxygen 06/25/25 00:14 06/25/25 02:00 06/25/25 04:00 Temperature Pulse Rate 62 Respiratory Rate Blood Pressure Pulse Oximetry 97 97 Oxygen Delivery Nasal Cannula Nasal Cannula Oxygen Flow Rate 2 2 Fraction of Inspired Oxygen 06/25/25 04:00 06/25/25 04:00 06/25/25 05:59 Temperature 37.0 C Pulse Rate 62 69 67 Respiratory Rate 14 Blood Pressure 91/45 L Pulse Oximetry 100 Oxygen Delivery Oxygen Flow Rate Fraction of Inspired Oxygen 06/25/25 08:00 06/25/25 08:00 06/25/25 08:00 Temperature 37.2 C Pulse Rate 90 73 Respiratory Rate 24 H Blood Pressure 139/51 L Pulse Oximetry 100 100 Oxygen Delivery Nasal Cannula Oxygen Flow Rate 2 Fraction of Inspired Oxygen 06/25/25 09:42 06/25/25 10:00 Temperature 37.6 C Pulse Rate 82 Respiratory Rate Blood Pressure Pulse Oximetry Oxygen Delivery Oxygen Flow Rate Fraction of Inspired Oxygen Exam Narrative: Alert oriented x3. Not in distress Const: Other: Had fever yesterday HENMT: Other: Denies discharge Eyes: Other: No icterus Neck: Other: Supple Chest: Other: Symmetric lung expansion Resp: Other: Clear to auscultation Cardio: Other: Normal S1-S2 without murmur GI: Other: No tenderness Skin: Other: No rash Neuro: Other: Moving all extremities, alert oriented x3 Extrem: Other: No edema Psych: Other: Normal behavior Results Labs and Meds 06/24/25 15:01 06/25/25 05:28 Lab results: Cardiac Enzymes 06/24/25 06/24/25 06/25/25 Range/Units 15:01 20:29 01:22 AST 72 H (17-59) U/L Troponin I 1.020 H* 2.620 H* D 1.320 H* D (0.000-0.034) ng/mL 06/25/25 Range/Units 05:28 AST (17-59) U/L Troponin I 0.815 H* D (0.000-0.034) ng/mL Coagulation 06/24/25 Range/Units 15:01 PT 14.8 H (11.1-14.7) Seconds APTT 33.0 (22.3-36.8) Seconds CBC 06/24/25 Range/Units 15:01 WBC 5.5 (4.5-10.0) K/mm3 RBC 5.26 (4.6-6.20) M/mm3 Hgb 14.7 (14.0-18.0) g/dL Hct 46.2 (42.0-52.0) % Plt Count 112 L (150-375) k/mm3 Lymph # (Auto) 2.81 (0.9-3.2) K/mm3 [place] # (Auto) 0.2 (0.1-0.6) K/mm3 Eos # (Auto) 0.1 (0-0.3) K/mm3 Baso # (Auto) 0.0 (0.0-0.1) K/mm3 Comprehensive Metabolic Panel 06/24/25 06/25/25 06/25/25 Range/Units 15:01 01:22 05:28 Sodium 137 138 (137-145) mmol/L Potassium 3.6 3.6 (3.4-5.0) mmol/L Chloride 99 111 H (98-107) mmol/L Carbon Dioxide 20 L 22 (22-30) mmol/L BUN 29 H D 26 H (9-20) mg/dL Creatinine 1.47 H 1.15 1.05 (0.7-1.3) mg/dL Glucose 114 H 87 (65-110) mg/dL Calcium 10.1 8.1 L (8.4-10.2) mg/dL AST 72 H (17-59) U/L ALT 56 H (6-50) U/L Alkaline Phosphatase 75 (38-126) U/L Total Protein 7.1 (6.3-8.2) g/dL Albumin 4.4 (3.5-5.1) g/dL Intake and Output 06/24/25 06/25/25 06/25/25 23:59 07:59 15:59 Intake Total 3550 1052.1 Output Total 250 Balance 3550 802.1 Intake: IV 3550 952.1 Sodium Chloride 0.9% IV 1,000 3000 902.1 ml @ 125 mls/hr IV CONT .Q8H [facility] Rx#:[id number] Cefepime 2 gm In Sodium 50 50 Chloride 0.9% IV 50 ml @ 100 mls/hr IVPB Q12H [facility] Rx#: [id number] Vancomycin 1,250 mg/Ns 250 ml 1 500 ,250 mg In 250 ml @ 166.667 mls /hr IVPB ONCE ONE Rx#:[id number] Oral 100 Output: Urine 250 Other: # Unmeasured Voids 1 Number of Bowel Movements Today 0 Patient Weight 06/25/25 23:59 Weight 104.2 kg
--- NOTE | 2025-06-25 13:12 | P.PNIM_ITS ---
Assessment and Plan Assessment and Plan (1) Sepsis: Code(s): A41.9 - Sepsis, unspecified organism Status: Acute Assessment and Plan: -the patient initially was started on azithromycin outpatient silva. The patient continued to have fever with rigors. Initially it was felt that the patient had pneumonia. CT scan shows the followingChest/Abdomen/Pelvis CTA 06/24/25 18:05 IMPRESSION: 1. Complex left lobe liver lesion, no abscess is not excluded. 2. 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 There is no evidence of pancreatitis. 3. Contrast-enhanced MRI is recommended to assess -the patient was given 3 L of IV fluids. It was also continue with maintenance fluids. -blood cultures are pending. -the patient was continued with cefepime and vancomycin. -he had a T-max of 100.5?. -he was negative for viral panel. -he was hypoxic with tachycardia and hypotension upon arrival to ER. Oxygen was applied it O2 2 L per nasal cannula. = MRI of the abdomen pending -his lactic was initially 8.7 but is now normal. (2) Cystic mass of pancreas: Code(s): K86.2 - Cyst of pancreas Status: Acute Assessment and Plan: -Chest/Abdomen/Pelvis CTA 06/24/25 18:05 IMPRESSION: 1. Complex left lobe liver lesion, no abscess is not excluded. 2. 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 There is no evidence of pancreatitis. 3. Contrast-enhanced MRI is recommended to assess -MRI has been ordered as suggested. Which is pending -may consider GI consult. (3) Elevated troponin: Code(s): R79.89 - Other specified abnormal findings of blood chemistry Status: Acute Assessment and Plan: -acute possibly ischemic demand from sepsis. -cardiology has been consulted. -initially the patient was given subcu Lovenox in the emergency room. No further Lovenox has been ordered. Will defer to Cardiology for further recommendations. -an echo has been ordered. -test Date: 2025-06-24 14:58:34 Measurements Intervals [place] Rate: 126 P: 22 ID: [id number] QRS: -84 QRSD: 106 T: 37 QT: 325 QTc: 472 Interpretive Statements SINUS TACHYCARDIA LEFT AXIS DEVIATION INCOMPLETE RIGHT BUNDLE BRANCH BLOCK PATTERN CONSISTENT WITH PULMONARY DISEASE BASELINE ARTIFACT- I, II, III, AVR, AVL, AVF, V1-V6 ABNORMAL ECG Compared to ECG 06/23/2025 09:49:55 HEART RATE HAS INCREASED Electronically Signed On 06-24-2025 15:30:33 [employer] by Sergio Urena D.O. -troponin 1.020, 2.620, 1.320 respectively. I will check another 1 in 3 hours. -the patient denies any chest pain. -started heart healthy diet (4) DM2 (diabetes mellitus, type 2): Code(s): E11.9 - Type 2 diabetes mellitus without complications Status: Acute Assessment and Plan: -Accu-Cheks every 6 hours with sliding scale insulin and hypoglycemic protocol. -he is NPO at this time. -A1c 7 -hold Jardiance at this time. (5) Hyperlipidemia: Code(s): E78.5 - Hyperlipidemia, unspecified Status: Acute Assessment and Plan: Atorvastatin (6) Hypertension: Code(s): I10 - Essential (primary) hypertension Status: Acute Assessment and Plan: -the patient is hypotensive and he is NPO at this time. -p.r.n. hydralazine with parameters. -amlodipine is currently on hold. (7) Seizure disorder: Code(s): G40.909 - Epilepsy, unspecified, not intractable, without status epilepticus Status: Acute Assessment and Plan: -the patient stated that he did have a workup for seizures and is not sure why he is having seizures. -home medications stated that he is on Keppra daily and is home dose will need to be verified. Should the patient be on Keppra twice a day? -seizure precautions. -p.o. medication was changed to IV. First seizure while he was at [facility] 2 months ago He recently had an MRI brain done at [facility] will get record. Will increase Keppra to 500 mg b.i.d. He is following up with neurologist outpatient. Repeat the scan if cannot be obtained Subjective Date/time seen: 06/25/25 13:12 Interval history: Feels well. Has some shaking episode at home febrile. No loss of consciousness. No cough no chest pain Review of Systems Review of Systems: All systems reviewed & are unremarkable except as noted in HPI and below Exam Narrative: GENERAL: well-appearing, well-nourished, and in no acute distress. HEAD: Normocephalic, atraumatic. EYES: PERRLA and EOMI. ENT: Nares clear, no rhinorrhea or epistaxis. Mucous membranes moist. NECK: Supple. CHEST: Clear to auscultation. No respiratory distress. HEART: Regular rate and regular rhythm. No murmur heard. Normal peripheral pulses. ABDOMEN: Soft, nontender, nondistended, normal active bowel sounds. EXTREMITIES: Normal range of motion. No edema. SKIN: Warm, dry, no rash. NEURO: No focal deficits. Alert and oriented x3. PSYCH: Normal mood and affect Objective Data Vital Signs Vital Signs: Vital Signs - 24 hr 06/24/25 14:46 06/24/25 14:56 06/24/25 15:01 Temperature 100.1 F H 97.7 F Pulse Rate 153 H 132 H 119 H Respiratory Rate 26 H 35 H 24 H Blood Pressure 126/90 162/76 H 153/72 H Pulse Oximetry 89 L 95 93 Oxygen Delivery Room Air Oxygen Flow Rate Fraction of Inspired Oxygen 06/24/25 15:23 06/24/25 15:45 06/24/25 16:25 Temperature Pulse Rate 88 95 Respiratory Rate 20 24 H 19 Blood Pressure 126/62 121/57 L Pulse Oximetry 95 93 94 Oxygen Delivery Oxygen Flow Rate Fraction of Inspired Oxygen 06/24/25 18:25 06/24/25 18:30 06/24/25 18:30 Temperature 100.1 F H Pulse Rate 88 87 87 Respiratory Rate 24 H 14 24 H Blood Pressure 107/60 Pulse Oximetry 93 95 97 Oxygen Delivery Oxygen Flow Rate Fraction of Inspired Oxygen 06/24/25 18:33 06/24/25 18:54 06/24/25 19:14 Temperature Pulse Rate 91 Respiratory Rate 25 H Blood Pressure 107/60 Pulse Oximetry 92 95 93 Oxygen Delivery Oxygen Flow Rate Fraction of Inspired Oxygen 06/24/25 19:15 06/24/25 19:30 06/24/25 20:26 Temperature 99.0 F Pulse Rate 81 Respiratory Rate 18 Blood Pressure 89/58 L Pulse Oximetry 94 93 96 Oxygen Delivery Oxygen Flow Rate Fraction of Inspired Oxygen 06/24/25 20:29 06/24/25 20:39 06/24/25 21:00 Temperature Pulse Rate 80 Respiratory Rate Blood Pressure 99/52 L Pulse Oximetry 97 97 Oxygen Delivery Nasal Cannula Nasal Cannula Oxygen Flow Rate 2 2 Fraction of Inspired Oxygen 28 06/24/25 22:00 06/25/25 00:00 06/25/25 00:00 Temperature 97.7 F Pulse Rate 67 66 68 Respiratory Rate 16 Blood Pressure 95/51 L Pulse Oximetry 100 Oxygen Delivery Oxygen Flow Rate Fraction of Inspired Oxygen 06/25/25 00:14 06/25/25 02:00 06/25/25 04:00 Temperature Pulse Rate 62 Respiratory Rate Blood Pressure Pulse Oximetry 97 97 Oxygen Delivery Nasal Cannula Nasal Cannula Oxygen Flow Rate 2 2 Fraction of Inspired Oxygen 06/25/25 04:00 06/25/25 04:00 06/25/25 05:59 Temperature 98.6 F Pulse Rate 62 69 67 Respiratory Rate 14 Blood Pressure 91/45 L Pulse Oximetry 100 Oxygen Delivery Oxygen Flow Rate Fraction of Inspired Oxygen 06/25/25 08:00 06/25/25 08:00 06/25/25 08:00 Temperature 99.0 F Pulse Rate 90 73 Respiratory Rate 24 H Blood Pressure 139/51 L Pulse Oximetry 100 100 Oxygen Delivery Nasal Cannula Oxygen Flow Rate 2 Fraction of Inspired Oxygen 06/25/25 09:42 06/25/25 10:00 06/25/25 12:00 Temperature 99.6 F 99.0 F Pulse Rate 82 79 Respiratory Rate 24 H Blood Pressure 107/50 L Pulse Oximetry 98 Oxygen Delivery Oxygen Flow Rate Fraction of Inspired Oxygen 06/25/25 12:00 Temperature Pulse Rate Respiratory Rate Blood Pressure Pulse Oximetry 98 Oxygen Delivery Room Air Oxygen Flow Rate Fraction of Inspired Oxygen Intake/Output Intake/Output: Intake & Output 06/22/25 06/23/25 06/24/25 06/25/25 23:59 23:59 23:59 23:59 Intake Total 3550 1052.1 Output Total 250 Balance 3550 802.1 Meds/Results Medications: Active Medications Generic Name Dose Route Start Last Admin Trade Name Freq PRN Reason Stop Dose Admin Acetaminophen 650 mg 06/24/25 18:41 Acetaminophen 325 Mg Tablet PO Q4H PRN Mild Pain (1-3) or Fever Aspirin 81 mg 06/25/25 08:00 06/25/25 07:56 Aspirin 81 Mg Chewable Tablet PO Not Given DAILY@0800 [facility] Dextrose 12.5 gm 06/25/25 02:20 Dextrose 50% 25 Gm/50 Ml Syringe IV PUSH PRN PRN Hypoglycemia Protocol Glucagon 1 mg 06/25/25 02:20 Glucagon For Inj 1 Mg Vial IM PRN PRN Hypoglycemia Protocol Glucose 15 gm 06/25/25 02:20 Glucose Oral Gel 15 Gm Of Glucse In 37.5 Gm Tube PO PRN PRN Hypoglycemia Protocol Hydralazine HCl 10 mg 06/25/25 02:20 Hydralazine Hcl 20 Mg/Ml Vial IV PUSH Q8H PRN Blood Pressure - High Cefepime HCl 2 gm/ Sodium 50 mls @ 100 mls/hr 06/25/25 04:00 06/25/25 04:34 Chloride IVPB Infused Q12H SONJA Infusion Vancomycin HCl 1,500 mg in 500 mls @ 250 mls/hr 06/25/25 18:00 Vancomycin 1,500 Mg/Ns 500 Ml IVPB Q24H SONJA Sodium Chloride 1,000 mls @ 125 mls/hr 06/24/25 18:45 06/25/25 04:06 Normal Saline Iv IV CONT 125 mls/hr .Q8H SONJA Administration Dextrose 1,000 mls @ 100 mls/hr 06/25/25 02:20 Dextrose 5% 1,000 Ml IVPB PRN PRN Hypoglycemia Protocol Levetiracetam 500 mg in 100 mls @ 400 mls/hr 06/25/25 09:00 06/25/25 08:56 Keppra Iv IVPB 400 mls/hr DAILY SONJA Administration Insulin Aspart 2 - 5 units 06/25/25 06:00 06/25/25 11:46 Insulin Aspart (*Bkc) 100 Units/Ml SUB-Q Not Given Q6HR [facility] Protocol Morphine Sulfate 2 mg 06/24/25 18:41 Morphine Sulfate (*Crx) 4 Mg/Ml Inj IV PUSH Q2H PRN Pain Rated 7-10 Ondansetron HCl 4 mg 06/24/25 18:41 Ondansetron Inj 4 Mg/2 Ml Vial IV PUSH Q4H PRN Nausea Perflutren Lipid Microsphere 0 ml 06/25/25 02:19 Perflutren Lipid Microspheres 1.5 Ml Vial Diluted To 10 Ml Total Volume IV PUSH 06/28/25 02:19 ONCE PRN adequate visualization Protocol Radiology Results: ITS Impressions Chest X-Ray 06/24/25 15:19 Impression: No acute cardiopulmonary abnormality. Chest/Abdomen/Pelvis CTA 06/24/25 18:05 IMPRESSION: 1. Complex left lobe liver lesion, no abscess is not excluded. 2. 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 There is no evidence of pancreatitis. 3. Contrast-enhanced MRI is recommended to assess Labs Labs: Laboratory Results - last 24 hr 06/24/25 06/24/25 06/24/25 15:01 15:11 16:04 WBC 5.5 RBC 5.26 Hgb 14.7 Hct 46.2 MCV 87.8 MCH 27.9 D MCHC 31.8 L RDW 13.9 Plt Count 112 L MPV 10.3 Immature Gran % (Auto) 0.2 Neut % (Auto) 43.4 L Lymph % (Auto) 51.5 H [place] % (Auto) 2.9 Eos % (Auto) 1.3 Baso % (Auto) 0.7 Lymph # (Auto) 2.81 [place] # (Auto) 0.2 Eos # (Auto) 0.1 Baso # (Auto) 0.0 Abs Immat Gran (auto) 0.01 Absolute Neuts (auto) 2.4 Absolute Nucleated RBC 0.000 Nucleated RBC % 0.0 % Immature Plt Fraction 4.5 PT 14.8 H INR 1.2 APTT 33.0 Puncture Site Right radial ABG pH 7.415 ABG pCO2 27.8 L ABG pO2 57.1 L ABG PO2/FiO2 Ratio 2.72 ABG HCO3 17.4 L ABG O2 Saturation 90.7 L ABG O2 Content 16.0 ABG Base Excess -5.7 A-a Gradient 59.3 Oxyhemoglobin 89.0 L Total Hemoglobin 12.8 O2 Delivery Device Room air O2 Liters/Min Not Reportable FiO2 21 Sodium 137 Potassium 3.6 Chloride 99 Carbon Dioxide 20 L Anion Gap 18 H BUN 29 H D Creatinine 1.47 H Estim Creat Clear Calc Not Reportable Estimated GFR 46 L Glucose 114 H POC Capillary Glucose Hemoglobin A1c Lactic Acid 8.7 H* Calcium 10.1 Magnesium 2.3 Total Bilirubin 0.9 AST 72 H ALT 56 H Alkaline Phosphatase 75 Troponin I 1.020 H* C-Reactive Protein 17.5 H Total Protein 7.1 Albumin 4.4 Beta-Hydroxybutyrate/Acetoacetate 0.55 H Procalcitonin 13.4 Urine Color Yellow Urine Appearance Clear Urine pH 5.0 Ur Specific [place] 1.039 H Urine Protein 1+ H Urine Glucose (UA) 3+ H Urine Ketones 1+ H Ur Blood (Man) 1+ H Urine Nitrate Negative Urine Bilirubin Negative Urine Urobilinogen 1.0 Leukocyte Esterase Rfl Negative Urine RBC 0-2 Urine WBC 0-5 Ur Squamous Epith Cells Occasional Urine Bacteria None seen Urine Casts 3-5 Influenza A (RT-PCR) Negative Influenza B (RT-PCR) Negative RSV (RT-PCR) Negative SARS-CoV-2 RNA (RT-PCR) Negative 06/24/25 06/24/25 06/25/25 17:38 20:29 01:17 WBC RBC Hgb Hct MCV MCH MCHC RDW Plt Count MPV Immature Gran % (Auto) Neut % (Auto) Lymph % (Auto) [place] % (Auto) Eos % (Auto) Baso % (Auto) Lymph # (Auto) [place] # (Auto) Eos # (Auto) Baso # (Auto) Abs Immat Gran (auto) Absolute Neuts (auto) Absolute Nucleated RBC Nucleated RBC % % Immature Plt Fraction PT INR APTT Puncture Site ABG pH ABG pCO2 ABG pO2 ABG PO2/FiO2 Ratio ABG HCO3 ABG O2 Saturation ABG O2 Content ABG Base Excess A-a Gradient Oxyhemoglobin Total Hemoglobin O2 Delivery Device O2 Liters/Min FiO2 Sodium Potassium Chloride Carbon Dioxide Anion Gap BUN Creatinine Estim Creat Clear Calc Estimated GFR Glucose POC Capillary Glucose 126 H Hemoglobin A1c 7.0 H Lactic Acid 0.9 Calcium Magnesium Total Bilirubin AST ALT Alkaline Phosphatase Troponin I 2.620 H* D C-Reactive Protein Total Protein Albumin Beta-Hydroxybutyrate/Acetoacetate Procalcitonin Urine Color Urine Appearance Urine pH Ur Specific [place] Urine Protein Urine Glucose (UA) Urine Ketones Ur Blood (Man) Urine Nitrate Urine Bilirubin Urine Urobilinogen Leukocyte Esterase Rfl Urine RBC Urine WBC Ur Squamous Epith Cells Urine Bacteria Urine Casts Influenza A (RT-PCR) Influenza B (RT-PCR) RSV (RT-PCR) SARS-CoV-2 RNA (RT-PCR) 06/25/25 06/25/25 06/25/25 01:22 05:28 11:02 WBC RBC Hgb Hct MCV MCH MCHC RDW Plt Count MPV Immature Gran % (Auto) Neut % (Auto) Lymph % (Auto) [place] % (Auto) Eos % (Auto) Baso % (Auto) Lymph # (Auto) [place] # (Auto) Eos # (Auto) Baso # (Auto) Abs Immat Gran (auto) Absolute Neuts (auto) Absolute Nucleated RBC Nucleated RBC % % Immature Plt Fraction PT INR APTT Puncture Site ABG pH ABG pCO2 ABG pO2 ABG PO2/FiO2 Ratio ABG HCO3 ABG O2 Saturation ABG O2 Content ABG Base Excess A-a Gradient Oxyhemoglobin Total Hemoglobin O2 Delivery Device O2 Liters/Min FiO2 Sodium 138 Potassium 3.6 Chloride 111 H Carbon Dioxide 22 Anion Gap 5 BUN 26 H Creatinine 1.15 1.05 Estim Creat Clear Calc 53 58 Estimated GFR > 60 > 60 Glucose 87 POC Capillary Glucose 84 Hemoglobin A1c Lactic Acid Calcium 8.1 L Magnesium Total Bilirubin AST ALT Alkaline Phosphatase Troponin I 1.320 H* D 0.815 H* D C-Reactive Protein Total Protein Albumin Beta-Hydroxybutyrate/Acetoacetate Procalcitonin Urine Color Urine Appearance Urine pH Ur Specific [place] Urine Protein Urine Glucose (UA) Urine Ketones Ur Blood (Man) Urine Nitrate Urine Bilirubin Urine Urobilinogen Leukocyte Esterase Rfl Urine RBC Urine WBC Ur Squamous Epith Cells Urine Bacteria Urine Casts Influenza A (RT-PCR) Influenza B (RT-PCR) RSV (RT-PCR) SARS-CoV-2 RNA (RT-PCR)
[2025-06-25] MEDS: VANCOMYCIN 1,500 MG/NS 500 ML 1,500 MG/500 ML BAG 250 MG IVPB (17:59)
[2025-06-25] MEDS: ACETAMINOPHEN 325 MG TABLET 650 MG PO (22:58)
[2025-06-26] VITALS (15 sets, daily range): BP systolic 103–147; BP diastolic 48–80; PULSE 64–85; RESP 16–26; TEMP 36.4–36.7; O2SAT 94–98
--- NOTE | 2025-06-26 | ECHO_ITS ---
Patient Info Name: Mario Rios Age: 80 years : 1945 Gender: Male Ht: 69 in Wt: 225 lbs BSA: 2.26 m2 HR: 65 bpm BP: 103 / 48 mmHg Technical Quality: Good Exam Date: 06/26/2025 9:01 AM Patient Status: I Admit Date: 06/25/2025 Exam Type: CA echo doppler color flow Complete two-dimensional, color flow and Doppler transthoracic echocardiogram is performed. Staff Referring Physician: Nayeli Euceda NP Parts Salesman: Bhupendra Neff III Attending Provider: Neo Sandoval Summary 1. Complete two-dimensional, color flow and Doppler transthoracic echocardiogram is performed. 2. There is normal biventricular size and systolic function. 3. There are no significant valvular abnormalities. Left Ventricle Left ventricle is normal in size and systolic function. There is concentric left ventricular remodeling. The left ventricular ejection fraction is visually estimated to be 60-65%. Right Ventricle The right ventricle is normal in size and systolic function. Left Atria The left atrium is normal size. Right Atria The right atrium is normal size. Aortic Valve The aortic valve is trileaflet and calcified. There is no aortic stenosis. There is no aortic regurgitation. Pulmonic Valve The pulmonic valve is grossly normal. There is no pulmonic valve regurgitation. Mitral Valve The mitral valve is normal. There is no mitral regurgitation. Tricuspid Valve Tricuspid valve is normal. There is no tricuspid regurgitation. Pericardium/Pleural Pericardium is normal in appearance with no evidence for significant pericardial effusion. Inferior Vena Cava Inferior vena cava is not well visualized. Aorta The aortic root at the level of the sinus of Valsalva measures 2.7 cm in diameter. Left Ventricular Outflow Tract Name Value Normal LVOT 2D LVOT Diameter 2.3 cm LVOT Doppler LVOT Peak Velocity 117 cm/s LVOT Peak Gradient 5 mmHg LVOT Mean Gradient 3 mmHg LVOT VTI 23 cm LVOT VTI/AV VTI Ratio 0.5 LVOT Stroke Volume 97 ml LVOT CO 6.8 l/min LVOT CI 3.0 l/min/m2 Pulmonic Valve Name Value Normal PV Doppler PV Peak Velocity 84 cm/s PV Peak Gradient 3 mmHg PV Mean Gradient 2 mmHg Mitral Valve Name Value Normal MV Doppler MV Peak Gradient 4 mmHg MV Mean Gradient 2 mmHg MV Area (Cont Eq VTI) 3.5 cm2 MV Diastolic Function MV E Peak Velocity 107 cm/s MV A Peak Velocity 104 cm/s MV E/A 1.0 MV Decel Time (PW) 118 ms MV Annular TDI MV E/e' (Septal) 12.3 MV E/e' (Lateral) 14.0 MV E/e' (Average) 13.2 Tricuspid Valve Name Value Normal TV Annular TDI TV Lateral Yajaira s' Velocity 14.3 cm/s >=9.5 Aortic Valve Name Value Normal AV Doppler AV Peak Velocity 199 cm/s AV Peak Gradient 16 mmHg AV Mean Gradient 9 mmHg AV VTI 43 cm AV Area (Cont Eq VTI) 2.3 cm2 >=3.0 AV Area (Cont Eq Sarath) 2.4 cm2 AV DI (Sarath) 0.59 AV Regurgitation 2D LVOT Area 4.1 cm2 Ventricles Name Value Normal LV Dimensions 2D/MM IVS Diastolic Thickness (2D) 1.2 cm 0.6-1.0 LVID Diastole (2D) 5.2 cm 4.2-5.8 LVIW Diastolic Thickness (2D) 1.3 cm 0.6-1.0 LVID Systole (2D) 3.6 cm 2.5-4.0 LVOT Diameter 2.3 cm LV Mass (2D Cubed) 257.95 g 88.00-224.00 LV Mass Index (2D Cubed) 114 g/m2 49-115 Relative Wall Thickness (2D) 0.48 <=0.42 LV Fractional Shortening/Ejection Fraction 2D/MM LV Fractional Shortening (2D) 31 % 25-43 LV EF (2D Teichholz) 58 % LV Diastolic Volume (4C MOD) 110 ml LV EF (4C MOD) 58 % LV Diastolic Volume (2C MOD) 77 ml LV EF (2C MOD) 61 % LV Diastolic Volume (BP MOD) 94 ml 62-150 LV Diastolic Volume Index (BP MOD) 42 ml/m2 34-74 LV Systolic Volume (BP MOD) 39 ml 21-61 LV Systolic Volume Index (BP MOD) 17 ml/m2 11-31 LV EF (BP MOD) 59 % 52-72 LV Diastolic Length (4C) 7.7 cm LV Systolic Length (4C) 5.7 cm LV Stroke Volume (4C MOD) 63 ml Atria Name Value Normal LA Dimensions LA Volume (4C A-L) 63 ml LA Volume (BP A-L) 67 ml RA Dimensions RA Systolic Major [place] Length (4C) 5.1 cm 2.1-2.7 RA Area (4C) 19.8 cm2 <=18.0 Report Signatures
[2025-06-26] MEDS: CEFEPIME 2 GM in SODIUM CHLORIDE 0.9% IV 50 ML 100 ML IVPB ×2 (03:56→17:02)
[2025-06-26 04:45] LABS: Anion Gap 5 mmol/L (4-12); Blood Urea Nitrogen 18 mg/dL (9-20); Calcium 7.2 mg/dL (8.4-10.2); Carbon Dioxide 20 mmol/L (22-30); Chloride 112 mmol/L (98-107); Estimated CRCL calculation 72 ml/min; Estimated Glomerular Filt Rate > 60; Glucose 83 mg/dL (65-110); Potassium 3.4 mmol/L (3.4-5.0); Sodium 137 mmol/L (137-145)
[2025-06-26] MEDS: SODIUM CHLORIDE 0.9% IV 1,000 ML 125 ML IV CONT ×2 (05:12→13:45)
[2025-06-26] MEDS: levETIRAcetam 500MG/NACL 100ML 500 MG/100 ML BAG 400 MG IVPB ×2 (09:38→17:02)
[2025-06-26] MEDS: ASPIRIN 81 MG CHEWABLE TABLET PO (09:38)
--- NOTE | 2025-06-26 14:10 | PM.IMPN2 ---
Assessment and Plan Assessment and Plan (1) Sepsis: Code(s): A41.9 - Sepsis, unspecified organism Status: Acute Assessment and Plan: -the patient initially was started on azithromycin outpatient silva. The patient continued to have fever with rigors. Initially it was felt that the patient had pneumonia. CT scan shows the followingChest/Abdomen/Pelvis CTA 06/24/25 18:05 IMPRESSION: 1. Complex left lobe liver lesion, no abscess is not excluded. 2. 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 There is no evidence of pancreatitis. 3. Contrast-enhanced MRI is recommended to assess -the patient was given 3 L of IV fluids. It was also continue with maintenance fluids. -blood cultures are negative to date -the patient was continued with cefepime and vancomycin. -he had a T-max of 100.5?. -he was negative for viral panel. -he was hypoxic with tachycardia and hypotension upon arrival to ER. Oxygen was applied it O2 2 L per nasal cannula. = MRI of the abdomen with diffuse hepatic steatosis. 2.1 cm cystic mass in the left hepatic lobe. Differential diagnosis include abscess hemorrhagic cyst and metastatic disease. 10 mm low risk cystic lesion of the pancreas. -his lactic was initially 8.7 but is now normal. Patient remains afebrile. Will consult GI with regard to MRCP findings (2) Cystic mass of pancreas: Code(s): K86.2 - Cyst of pancreas Status: Acute Assessment and Plan: -Chest/Abdomen/Pelvis CTA 06/24/25 18:05 IMPRESSION: 1. Complex left lobe liver lesion, no abscess is not excluded. 2. 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 There is no evidence of pancreatitis. 3. Contrast-enhanced MRI is recommended to assess -MRI has been ordered as suggested. MRI of the abdomen with diffuse hepatic steatosis. 2.1 cm cystic mass in the left hepatic lobe differential diagnosis include abscess hemorrhagic cyst and metastatic disease. 10 mm low risk cystic lesion of the pancreas noted. GI consult (3) Elevated troponin: Code(s): R79.89 - Other specified abnormal findings of blood chemistry Status: Acute Assessment and Plan: -acute possibly ischemic demand from sepsis. -cardiology has been consulted. -initially the patient was given subcu Lovenox in the emergency room. No further Lovenox has been ordered. Will defer to Cardiology for further recommendations. -an echo has been ordered. -test Date: 2025-06-24 14:58:34 Measurements Intervals [place] Rate: 126 P: 22 DE: 201 QRS: -84 QRSD: 106 T: 37 QT: 325 QTc: 472 Interpretive Statements SINUS TACHYCARDIA LEFT AXIS DEVIATION INCOMPLETE RIGHT BUNDLE BRANCH BLOCK PATTERN CONSISTENT WITH PULMONARY DISEASE BASELINE ARTIFACT- I, II, III, AVR, AVL, AVF, V1-V6 ABNORMAL ECG Compared to ECG 06/23/2025 09:49:55 HEART RATE HAS INCREASED Electronically Signed On 06-24-2025 15:30:33 NETWORK PROGRAM MANAGER by Sergio Urena D.O. -troponin 1.020, 2.620, 1.320 respectively. I will check another 1 in 3 hours. -the patient denies any chest pain. -started heart healthy diet Echo with normal EF and no valvular abnormalities. (4) DM2 (diabetes mellitus, type 2): Code(s): E11.9 - Type 2 diabetes mellitus without complications Status: Acute Assessment and Plan: -Accu-Cheks every 6 hours with sliding scale insulin and hypoglycemic protocol. -he is NPO at this time. -A1c 7 -hold Jardiance at this time. (5) Hyperlipidemia: Code(s): E78.5 - Hyperlipidemia, unspecified Status: Acute Assessment and Plan: Atorvastatin (6) Hypertension: Code(s): I10 - Essential (primary) hypertension Status: Acute Assessment and Plan: - the patient is hypotensive and he is NPO at this time. -p.r.n. hydralazine with parameters. -amlodipine is currently on hold. (7) Seizure disorder: Code(s): G40.909 - Epilepsy, unspecified, not intractable, without status epilepticus Status: Acute Assessment and Plan: -the patient stated that he did have a workup for seizures and is not sure why he is having seizures. -home medications stated that he is on Keppra daily and is home dose will need to be verified. Should the patient be on Keppra twice a day ? -seizure precautions. -p.o. medication was changed to IV. First seizure while he was at [facility] 2 months ago He recently had an MRI brain done at [facility] which was reviewed and came back with no acute findings. increased Keppra to 500 mg b.i.d. He is following up with neurologist outpatient. eeg was normal as well. Subjective Date/time seen: 06/26/25 14:10 Interval history: No overnight events. Remains afebrile. Feels well. Family at bedside and discussed with them. Discussed findings of MRCP. Review of Systems Review of Systems: All systems reviewed & are unremarkable except as noted in HPI and below Exam Narrative: GENERAL: well-appearing, well-nourished, and in no acute distress. HEAD: Normocephalic, atraumatic. EYES: PERRLA and EOMI. ENT: Nares clear, no rhinorrhea or epistaxis. Mucous membranes moist. NECK: Supple. CHEST: Clear to auscultation. No respiratory distress. HEART: Regular rate and regular rhythm. No murmur heard. Normal peripheral pulses. ABDOMEN: Soft, nontender, nondistended, normal active bowel sounds. EXTREMITIES: Normal range of motion. No edema. SKIN: Warm, dry, no rash. NEURO: No focal deficits. Alert and oriented x3. PSYCH: Normal mood and affect Objective Data Vital Signs Vital Signs: Vital Signs - 24 hr 06/25/25 16:00 06/25/25 16:00 06/25/25 16:00 Temperature 98.2 F Pulse Rate 76 78 Respiratory Rate 24 H Blood Pressure 123/62 Pulse Oximetry 96 96 Oxygen Delivery Room Air 06/25/25 18:00 06/25/25 19:32 06/25/25 20:00 Temperature 98.0 F Pulse Rate 76 77 Respiratory Rate 19 Blood Pressure 123/59 L Pulse Oximetry 97 97 Oxygen Delivery Room Air 06/25/25 20:00 06/25/25 22:00 06/25/25 23:27 Temperature Pulse Rate 77 71 Respiratory Rate Blood Pressure Pulse Oximetry 97 Oxygen Delivery Room Air 06/25/25 23:57 06/26/25 00:00 06/26/25 02:00 Temperature 98.2 F Pulse Rate 70 69 65 Respiratory Rate 20 Blood Pressure 126/63 Pulse Oximetry 96 Oxygen Delivery 06/26/25 04:00 06/26/25 04:00 06/26/25 04:00 Temperature 97.6 F Pulse Rate 64 65 Respiratory Rate 20 Blood Pressure 103/48 L Pulse Oximetry 97 96 Oxygen Delivery Room Air 06/26/25 06:00 06/26/25 08:00 06/26/25 08:40 Temperature 97.8 F Pulse Rate 70 72 76 Respiratory Rate 20 Blood Pressure 146/69 H Pulse Oximetry 96 Oxygen Delivery 06/26/25 10:00 06/26/25 12:00 Temperature 98.0 F Pulse Rate 65 74 Respiratory Rate 22 H Blood Pressure 147/80 H Pulse Oximetry 96 Oxygen Delivery Intake/Output Intake/Output: Intake & Output 06/23/25 06/24/25 06/25/25 06/26/25 23:59 23:59 23:59 23:59 Intake Total 3550 3835.9 3060 Output Total 360 Balance 3550 3475.9 3060 Meds/Results Medications: Active Medications Generic Name Dose Route Start Last Admin Trade Name Freq PRN Reason Stop Dose Admin Acetaminophen 650 mg 06/24/25 18:41 06/25/25 22:58 Acetaminophen 325 Mg Tablet PO 650 mg Q4H PRN Administration Mild Pain (1-3) or Fever Aspirin 81 mg 06/25/25 08:00 06/26/25 09:38 Aspirin 81 Mg Chewable Tablet PO 81 mg DAILY@0800 SONJA Administration Dextrose 12.5 gm 06/25/25 02:20 Dextrose 50% 25 Gm/50 Ml Syringe IV PUSH PRN PRN Hypoglycemia Protocol Glucagon 1 mg 06/25/25 02:20 Glucagon For Inj 1 Mg Vial IM PRN PRN Hypoglycemia Protocol Glucose 15 gm 06/25/25 02:20 Glucose Oral Gel 15 Gm Of Glucse In 37.5 Gm Tube PO PRN PRN Hypoglycemia Protocol Hydralazine HCl 10 mg 06/25/25 02:20 Hydralazine Hcl 20 Mg/Ml Vial IV PUSH Q8H PRN Blood Pressure - High Cefepime HCl 2 gm/ Sodium 50 mls @ 100 mls/hr 06/25/25 04:00 06/26/25 04:26 Chloride IVPB Infused Q12H SONJA Infusion Vancomycin HCl 1,500 mg in 500 mls @ 250 mls/hr 06/25/25 18:00 06/25/25 19:59 Vancomycin 1,500 Mg/Ns 500 Ml IVPB Infused Q24H SONJA Infusion Sodium Chloride 1,000 mls @ 125 mls/hr 06/24/25 18:45 06/26/25 13:45 Normal Saline Iv IV CONT 125 mls/hr .Q8H SONJA Administration Dextrose 1,000 mls @ 100 mls/hr 06/25/25 02:20 Dextrose 5% 1,000 Ml IVPB PRN PRN Hypoglycemia Protocol Levetiracetam 500 mg in 100 mls @ 400 mls/hr 06/25/25 17:00 06/26/25 10:00 Keppra Iv IVPB Infused BID SONJA Infusion Insulin Aspart 2 - 5 units 06/25/25 06:00 06/26/25 13:46 Insulin Aspart (*Bkc) 100 Units/Ml SUB-Q Not Given Q6HR SONJA Protocol Morphine Sulfate 2 mg 06/24/25 18:41 Morphine Sulfate (*Crx) 4 Mg/Ml Inj IV PUSH Q2H PRN Pain Rated 7-10 Ondansetron HCl 4 mg 06/24/25 18:41 Ondansetron Inj 4 Mg/2 Ml Vial IV PUSH Q4H PRN Nausea Perflutren Lipid Microsphere 0 ml 06/25/25 02:19 Perflutren Lipid Microspheres 1.5 Ml Vial Diluted To 10 Ml Total Volume IV PUSH 06/28/25 02:19 ONCE PRN adequate visualization Protocol Radiology Results: ITS Impressions Chest X-Ray 06/24/25 15:19 Impression: No acute cardiopulmonary abnormality. Chest/Abdomen/Pelvis CTA 06/24/25 18:05 IMPRESSION: 1. Complex left lobe liver lesion, no abscess is not excluded. 2. 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 There is no evidence of pancreatitis. 3. Contrast-enhanced MRI is recommended to assess MRCP 06/26/25 06:58 IMPRESSION: 1. Diffuse hepatic steatosis. 2. 2.1 cm cystic mass in left hepatic lobe. The differential diagnosis includes abscess, hemorrhagic cyst, and metastatic disease. 3. 10 mm low-risk cystic lesion of the pancreas, likely benign. Labs Labs: Laboratory Results - last 24 hr 06/25/25 06/25/25 06/26/25 18:05 22:59 03:43 Sodium 137 Potassium 3.4 Chloride 112 H Carbon Dioxide 20 L Anion Gap 5 BUN 18 Creatinine 0.84 Estim Creat Clear Calc 72 Estimated GFR > 60 Glucose 83 POC Capillary Glucose 148 H 86 Calcium 7.2 L 06/26/25 06/26/25 05:14 11:04 Sodium Potassium Chloride Carbon Dioxide Anion Gap BUN Creatinine Estim Creat Clear Calc Estimated GFR Glucose POC Capillary Glucose 91 100 Calcium
[2025-06-26] MEDS: ACETAMINOPHEN 325 MG TABLET 650 MG PO (17:31)
[2025-06-26] MEDS: VANCOMYCIN 1,500 MG/NS 500 ML 1,500 MG/500 ML BAG 250 MG IVPB (18:39)
--- NOTE | 2025-06-26 19:51 | WPDGICN ---
Assessment and Plan Assessment and plan (1) Cystic mass of pancreas: Code(s): K86.2 - Cyst of pancreas Status: Acute Assessment and Plan: The patient has an incidental finding of a small pancreatic cyst, measuring less than 1 cm, which is common in elderly patients and does not currently warrant aggressive evaluation or follow-up given his overall health and age. A follow-up MRCP might be reasonable in one year; if the size of the lesion remains stable at that time, further MRI or CT surveillance will not be indicated. Additionally, the noted liver cyst is a benign lesion that does not require any further imaging follow-up. GI Consult Note Consult date/time: 06/26/25 19:51 Reason for consult: Pancreatic cyst HPI: Mario Rios is a 80 year old male admitted on 06/24/2025 for fever, with a diagnosis of pneumonia, currently covered with cefepime and vancomycin. The reason for consultation is the incidental finding of mild pancreatic atrophy and a 5 x 6 mm cystic lesion in the pancreatic tail. An MRCP done today shows a 2.1 cm cystic lesion in the left hepatic lobe and a 10 mm cyst in the pancreatic tail. No evidence of pancreatic duct dilatation, solid component or suspicious neoplastic lesions. The patient denies a history of pancreatitis and abdominal pain. Apparently there is no family history of pancreatic cancer. Laboratory data at admission: Hemoglobin 14.7, hematocrit 46.2, platelet count 112, sodium 137, creatinine 0.84 Review of Systems Constitutional: Constitutional: Reports as per HPI Cardiovascular: Cardiovascular: Reports no additional cardiovascular complaints Respiratory: Respiratory: Reports no additional respiratory complaints Gastrointestinal: Gastrointestinal: Reports no additional gastrointestinal complaints, Denies melena, Denies bloating, Denies diarrhea, Denies nausea and Denies vomiting [facility] Past Medical History Medical History DM2 (diabetes mellitus, type 2) Seizure disorder Hyperlipidemia Hypertension Surgical History Surgical History H/O prostatectomy History of cataract extraction Hx of cholecystectomy Family History Family History Father Prostate carcinoma Diabetes mellitus Mother Diabetes mellitus Heart disease Social History Social History Social History: The patient is to his 3rd . He has 5 children. He is retired. Code status full code Smoking packs per day: 1 Smoking cigarettes per day: 20.0 Years smoked: 10 Smoking pack-years: 10.00 Smoking status: Former smoker Tobacco type: cigarettes Alcohol intake: never Substance use: never Substance use type: does not use Lack of Transportation: No Lack of Food: Never True Current Housing: I Have Housing Concerned About Future Housing: No Difficulty Paying Gas/Electric Bills: No Difficulty Paying for Meds: No Currently Unemployed: No Education: High School Diploma/GED Difficulty w/ Childcare or Family Care: No Spiritual care concerns: No Meds Home Medications and Allergies Home Medications ?Medication ?Instructions ?Recorded ?Confirmed ?Type amlodipine 5 mg tablet 5 mg PO .daily] 06/24/25 06/24/25 History aspirin 81 mg capsule 81 mg PO DAILY 06/24/25 06/24/25 History atorvastatin 20 mg tablet 20 mg PO DAILY 06/24/25 06/24/25 History blood-glucose meter (OneTouch 06/24/25 06/24/25 History Ultra2 Meter) calcium 600 mg capsule 600 mg PO DAILY 06/24/25 06/24/25 History celecoxib 100 mg capsule 100 mg PO DAILY 06/24/25 06/24/25 History empagliflozin 25 mg tablet 25 mg PO DAILY 06/24/25 06/24/25 History (Jardiance) levetiracetam 500 mg tablet 500 mg PO DAILY 06/24/25 06/24/25 History lisinopril 20 1 tablet PO BID 06/24/25 06/24/25 History mg-hydrochlorothiazide 12.5 mg tablet metformin 500 mg tablet,extended 500 mg PO BID-TID 06/24/25 06/24/25 History release 24 hr Allergies Allergy/AdvReac Type Severity Reaction Status Date / Time codeine Allergy Unknown Verified 06/24/25 20:23 Vital Signs Vital Signs - 24 hr 06/25/25 20:00 06/25/25 20:00 06/25/25 22:00 Temperature Pulse Rate 77 71 Respiratory Rate Blood Pressure Pulse Oximetry 97 Oxygen Delivery Room Air 06/25/25 23:27 06/25/25 23:57 06/26/25 00:00 Temperature 98.2 F Pulse Rate 70 69 Respiratory Rate 20 Blood Pressure 126/63 Pulse Oximetry 97 96 Oxygen Delivery Room Air 06/26/25 02:00 06/26/25 04:00 06/26/25 04:00 Temperature Pulse Rate 65 64 Respiratory Rate Blood Pressure Pulse Oximetry 97 Oxygen Delivery Room Air 06/26/25 04:00 06/26/25 06:00 06/26/25 08:00 Temperature 97.6 F 97.8 F Pulse Rate 65 70 72 Respiratory Rate 20 20 Blood Pressure 103/48 L 146/69 H Pulse Oximetry 96 96 Oxygen Delivery 06/26/25 08:40 06/26/25 10:00 06/26/25 12:00 Temperature 98.0 F Pulse Rate 76 65 74 Respiratory Rate 22 H Blood Pressure 147/80 H Pulse Oximetry 96 Oxygen Delivery 06/26/25 12:00 06/26/25 14:00 06/26/25 15:51 Temperature 97.6 F Pulse Rate 81 78 70 Respiratory Rate 16 Blood Pressure 145/67 H Pulse Oximetry 98 Oxygen Delivery 06/26/25 16:00 06/26/25 18:00 Temperature Pulse Rate 70 85 Respiratory Rate Blood Pressure Pulse Oximetry Oxygen Delivery Exam Const: General: comfortable and no acute distress Eyes: Sclera: normal sclerae Resp: Effort & Inspection: normal respiratory effort Auscultation: clear to auscultation bilaterally Cardio: Rate: regular rate Rhythm: regular rhythm GI: Inspection: non-distended Auscultation: normal bowel sounds Psych: Mental Status: mental status grossly normal Results Labs 06/24/25 15:01 06/26/25 03:43 Labs: BMP 06/26/25 03:43 Sodium 137 Potassium 3.4 Chloride 112 H Carbon Dioxide 20 L BUN 18 Creatinine 0.84 Glucose 83 Calcium 7.2 L
[2025-06-27] VITALS (7 sets, daily range): BP systolic 134–151; BP diastolic 67–71; PULSE 64–79; RESP 16–20; TEMP 36.5–36.8; O2SAT 95–96
[2025-06-27] MEDS: ACETAMINOPHEN 325 MG TABLET 650 MG PO (02:22)
[2025-06-27] MEDS: CEFEPIME 2 GM in SODIUM CHLORIDE 0.9% IV 50 ML 100 ML IVPB (03:32)
[2025-06-27 04:42] LABS: Hematocrit 36.3 % (42.0-52.0); Hemoglobin 11.6 g/dL (14.0-18.0); Immature Granulocyte Percent A 1.6 % (0-0.5); Immature Platelet Fraction Pct 4.1 % (0.9-11.2); Lymphocytes Absolute Auto 0.82 K/mm3 (0.9-3.2); Mean Corpuscular HGB Conc 32.0 g/dl (32-36); Mean Corpuscular Hemoglobin 27.6 pg (26-34); Mean Corpuscular Volume 86.2 fl (80-100); Nucleated Red Blood Cells Absolute Auto 0.000 K/mm3 (0.0-0.012); Nucleated Red Blood Cells Perc 0.0 % (0.0-0.2); Platelet Count Result 93 k/mm3 (150-375); Red Blood Count 4.21 M/mm3 (4.6-6.20); White Blood Count 4.4 K/mm3 (4.5-10.0)
[2025-06-27 05:00] LABS: Alanine Aminotransferase 51 U/L (6-50); Albumin Level 2.9 g/dL (3.5-5.1); Alkaline Phosphatase 58 U/L (38-126); Anion Gap 1 mmol/L (4-12); Aspartate Amino Transferase 52 U/L (17-59); Bilirubin,Total 0.5 mg/dL (0.2-1.3); Blood Urea Nitrogen 12 mg/dL (9-20); Calcium 7.3 mg/dL (8.4-10.2); Carbon Dioxide 23 mmol/L (22-30); Chloride 112 mmol/L (98-107); Estimated CRCL calculation 85 ml/min; Estimated Glomerular Filt Rate > 60; Glucose 96 mg/dL (65-110); Magnesium 2.4 mg/dL (1.6-2.3); Potassium 3.3 mmol/L (3.4-5.0); Sodium 136 mmol/L (137-145); Total Protein 5.4 g/dL (6.3-8.2)
[2025-06-27 05:26] LABS: Burr Cells 1+; Schistocytes None Seen
[2025-06-27] MEDS: POTASSIUM CHLORIDE 20 MEQ ER TABLET 40 MEQ PO (09:11)
[2025-06-27] MEDS: ASPIRIN 81 MG CHEWABLE TABLET PO (09:11)
[2025-06-27] MEDS: levETIRAcetam 500MG/NACL 100ML 500 MG/100 ML BAG 400 MG IVPB (09:12)
--- NOTE | 2025-06-27 09:46 | PCOTNOTE ---
Attempted to see pt. for occupational therapy evaluation. Pt. ambulating independently in room on return from toileting. Spoke with pt. who declines need for acute therapy needs at this time. Spoke with nurse Fernandez, who confirmed and is in agreement. Canceling orders.
[2025-06-27] MEDS: DOXYCYCLINE HYCLATE 100 MG TABLET PO (11:01)
--- NOTE | 2025-06-27 12:43 | PM.DS ---
DS: Admitting Diagnosis Discharge Date 06/27/2025 Admitting Diagnosis Fever DS: Discharge Diagnosis Discharge Diagnosis (1) Sepsis: Code(s): A41.9 - Sepsis, unspecified organism Status: Acute (2) Cystic mass of pancreas: Code(s): K86.2 - Cyst of pancreas Status: Acute (3) Elevated troponin: Code(s): R79.89 - Other specified abnormal findings of blood chemistry Status: Acute (4) DM2 (diabetes mellitus, type 2): Code(s): E11.9 - Type 2 diabetes mellitus without complications Status: Acute (5) Hyperlipidemia: Code(s): E78.5 - Hyperlipidemia, unspecified Status: Acute (6) Hypertension: Code(s): I10 - Essential (primary) hypertension Status: Acute (7) Seizure disorder: Code(s): G40.909 - Epilepsy, unspecified, not intractable, without status epilepticus Status: Acute DS: Summary Hospital Course Hospital Course: # Sepsis: -the patient initially was started on azithromycin outpatient silva. The patient continued to have fever with rigors. Initially it was felt that the patient had pneumonia. CT scan shows the followingChest/Abdomen/Pelvis CTA 06/24/25 18:05 IMPRESSION: 1. Complex left lobe liver lesion, no abscess is not excluded. 2. 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 There is no evidence of pancreatitis. 3. Contrast-enhanced MRI is recommended to assess -the patient was given 3 L of IV fluids. It was also continue with maintenance fluids. -blood cultures are negative to date -the patient was started on cefepime and vancomycin. -he had a T-max of 100.5?. -he was negative for viral panel. -he was hypoxic with tachycardia and hypotension upon arrival to ER. Oxygen was applied it O2 2 L per nasal cannula. = MRI of the abdomen with diffuse hepatic steatosis. 2.1 cm cystic mass in the left hepatic lobe. Differential diagnosis include abscess hemorrhagic cyst and metastatic disease. 10 mm low risk cystic lesion of the pancreas. -his lactic was initially 8.7 but is now normal. Patient remains afebrile. Consulted GI regarding MRCP finding. Likely chronic findings. Antibiotics will be switched to oral for a week at discharge # Cystic mass of pancreas: -Chest/Abdomen/Pelvis CTA 06/24/25 18:05 IMPRESSION: 1. Complex left lobe liver lesion, no abscess is not excluded. 2. 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 There is no evidence of pancreatitis. 3. Contrast-enhanced MRI is recommended to assess -MRI has been ordered as suggested. MRI of the abdomen with diffuse hepatic steatosis. 2.1 cm cystic mass in the left hepatic lobe differential diagnosis include abscess hemorrhagic cyst and metastatic disease. 10 mm low risk cystic lesion of the pancreas noted. GI consulted and recommendations reviewed Recheck CT in 1 year # Elevated troponin: -acute possibly ischemic demand from sepsis. -cardiology has been consulted. -initially the patient was given subcu Lovenox in the emergency room. No further Lovenox has been ordered. -an echo has been ordered. -test Date: 2025-06-24 14:58:34 Measurements Intervals [place] Rate: 126 P: 22 SD: 201 QRS: -84 QRSD: 106 T: 37 QT: 325 QTc: 472 Interpretive Statements SINUS TACHYCARDIA LEFT AXIS DEVIATION INCOMPLETE RIGHT BUNDLE BRANCH BLOCK PATTERN CONSISTENT WITH PULMONARY DISEASE BASELINE ARTIFACT- I, II, III, AVR, AVL, AVF, V1-V6 ABNORMAL ECG Compared to ECG 06/23/2025 09:49:55 HEART RATE HAS INCREASED Electronically Signed On 06-24-2025 15:30:33 [employer] by Sergio Urena D.O. -troponin 1.020, 2.620, 1.320 respectively. -the patient denies any chest pain. Suspected to be demand ischemia from underlying sepsis -started heart healthy diet Echo with normal EF and no valvular abnormalities. Follow-up with cardiology as an outpatient basis. # DM2 (diabetes mellitus, type 2): -Accu-Cheks every 6 hours with sliding scale insulin and hypoglycemic protocol. -A1c 7 -hold Jardiance at this time. # Hyperlipidemia: Atorvastatin # Hypertension: - the patient is hypotensive on presentation -p.r.n. hydralazine with parameters. -amlodipine is currently on hold. Resume at discharge # Seizure disorder: -the patient stated that he did have a workup for seizures and is not sure why he is having seizures. -home medications stated that he is on Keppra twice daily which was continued -seizure precautions. First seizure while he was at [facility] 2 months ago He recently had an MRI brain done at [facility] which was reviewed and came back with no acute findings. increased Keppra to 500 mg b.i.d. He is following up with neurologist outpatient. eeg was normal as well. Time Spent with Patient Time attestation: Total time spent providing and/or coordinating discharge services: 45 minutes Exam Narrative: GENERAL: well-appearing, well-nourished, and in no acute distress. HEAD: Normocephalic, atraumatic. EYES: PERRLA and EOMI. ENT: Nares clear, no rhinorrhea or epistaxis. Mucous membranes moist. NECK: Supple. CHEST: Clear to auscultation. No respiratory distress. HEART: Regular rate and regular rhythm. No murmur heard. Normal peripheral pulses. ABDOMEN: Soft, nontender, nondistended, normal active bowel sounds. EXTREMITIES: Normal range of motion. No edema. SKIN: Warm, dry, no rash. NEURO: No focal deficits. Alert and oriented x3. PSYCH: Normal mood and affect DS: Data Data Completed and Pending Completed studies during hospitalization: Exam Type: CA echo doppler color flow Complete two-dimensional, color flow and Doppler transthoracic echocardiogram is performed. Staff Referring Physician: Nayeli Euceda NP Mailroom Coordinator: Bhupendra Neff III Attending Provider: Neo Sandoval Summary 1. Complete two-dimensional, color flow and Doppler transthoracic echocardiogram is performed. 2. There is normal biventricular size and systolic function. 3. There are no significant valvular abnormalities. Left Ventricle Left ventricle is normal in size and systolic function. There is concentric left ventricular remodeling. The left ventricular ejection fraction is visually estimated to be 60-65%. Right Ventricle The right ventricle is normal in size and systolic function. Left Atria The left atrium is normal size. Right Atria The right atrium is normal size. Aortic Valve The aortic valve is trileaflet and calcified. There is no aortic stenosis. There is no aortic regurgitation. Pulmonic Valve The pulmonic valve is grossly normal. There is no pulmonic valve regurgitation. Mitral Valve The mitral valve is normal. There is no mitral regurgitation. Tricuspid Valve Tricuspid valve is normal. There is no tricuspid regurgitation. Pericardium/Pleural Pericardium is normal in appearance with no evidence for significant pericardial effusion. Inferior Vena Cava Inferior vena cava is not well visualized. Aorta The aortic root at the level of the sinus of Valsalva measures 2.7 cm in diameter. Labs on day of discharge: Labs from last 24 hours 06/27/25 06/27/25 06/26/25 03:53 00:13 17:47 WBC 4.4 L RBC 4.21 L Hgb 11.6 L D Hct 36.3 L MCV 86.2 MCH 27.6 MCHC 32.0 RDW 14.1 Plt Count 93 L MPV 11.1 H Immature Gran % (Auto) 1.6 H Neut % (Auto) 60.2 Lymph % (Auto) 18.9 [place] % (Auto) 12.0 H Eos % (Auto) 6.4 H Baso % (Auto) 0.9 Lymph # (Auto) 0.82 L [place] # (Auto) 0.5 Eos # (Auto) 0.3 Baso # (Auto) 0.0 Abs Immat Gran (auto) 0.07 H Absolute Neuts (auto) 2.6 Absolute Nucleated RBC 0.000 Band Neutrophils % Not Reportable Nucleated RBC % 0.0 Platelet Estimate Decreased % Immature Plt Fraction 4.1 Man Cells 1+ Schistocytes None seen Sodium 136 L Potassium 3.3 L Chloride 112 H Carbon Dioxide 23 Anion Gap 1 L BUN 12 D Creatinine 0.72 Estim Creat Clear Calc 85 Estimated GFR > 60 Glucose 96 POC Capillary Glucose 107 H 173 H Calcium 7.3 L Magnesium 2.4 H Total Bilirubin 0.5 AST 52 ALT 51 H Alkaline Phosphatase 58 Total Protein 5.4 L Albumin 2.9 L Vancomycin Trough 06/26/25 16:51 WBC RBC Hgb Hct MCV MCH MCHC RDW Plt Count MPV Immature Gran % (Auto) Neut % (Auto) Lymph % (Auto) [place] % (Auto) Eos % (Auto) Baso % (Auto) Lymph # (Auto) [place] # (Auto) Eos # (Auto) Baso # (Auto) Abs Immat Gran (auto) Absolute Neuts (auto) Absolute Nucleated RBC Band Neutrophils % Nucleated RBC % Platelet Estimate % Immature Plt Fraction Man Cells Schistocytes Sodium Potassium Chloride Carbon Dioxide Anion Gap BUN Creatinine Estim Creat Clear Calc Estimated GFR Glucose POC Capillary Glucose Calcium Magnesium Total Bilirubin AST ALT Alkaline Phosphatase Total Protein Albumin Vancomycin Trough 6.1 L Imaging Radiologist's impression: ITS Impressions Chest X-Ray 06/24/25 15:19 Impression: No acute cardiopulmonary abnormality. Chest/Abdomen/Pelvis CTA 06/24/25 18:05 IMPRESSION: 1. Complex left lobe liver lesion, no abscess is not excluded. 2. 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 There is no evidence of pancreatitis. 3. Contrast-enhanced MRI is recommended to assess MRCP 06/26/25 06:58 IMPRESSION: 1. Diffuse hepatic steatosis. 2. 2.1 cm cystic mass in left hepatic lobe. The differential diagnosis includes abscess, hemorrhagic cyst, and metastatic disease. 3. 10 mm low-risk cystic lesion of the pancreas, likely benign. Discharge Plan Discharge Attending physician on discharge: Richy White Consulting providers: Rosio Bowie Discharging Clinician: Richy White Anticipated Discharge Date/Time: 06/27/25 12:48 Patient Disposition: Home Activity: as tolerated Diet: heart healthy and diabetic Patient Instructions: Antibiotic Form, Enoxaparin (By injection) Patient Language: Kinyarwanda Stand Alone Forms: General Discharge Information Follow-up/Referrals: Rosio Bowie DO [Physician, Cardiology] - 4 Weeks Desmond,Zenaida Durham MD [Primary Care Provider, Unknown] - 1 Week Discharge Medications: New doxycycline hyclate 100 mg Tablet 100 mg PO Q12HR Qty: 13 0RF amoxicillin-pot clavulanate 875-125 mg tablet 1 tablet PO Q12H Qty: 13 0RF Continued amlodipine 5 mg tablet 5 mg PO .daily] lisinopril-hydrochlorothiazide 20-12.5 mg tablet 1 tablet PO BID celecoxib 100 mg capsule 100 mg PO DAILY metformin 500 mg tablet extended release 24 hr 500 mg PO BID-TID Jardiance 25 mg tablet 25 mg PO DAILY atorvastatin 20 mg tablet 20 mg PO DAILY (DME) blood-glucose meter [OneTouch Ultra2 Meter] Misc MISCELLANEOUS aspirin 81 mg capsule 81 mg PO DAILY calcium 600 mg capsule 600 mg PO DAILY Changed levetiracetam 500 mg tablet 500 mg PO BID Qty: 60 0RF Date of admission: 06/25/25 07:52 Primary Care Provider: DesmondZenaida Admitting Provider: Neo Sandoval Attending physician on admission: Neo Sandoval Condition: Stable
--- NOTE | 2025-06-27 12:46 | P.PNCA_ITS ---
Progress Note: A&P Assessment and Plan (1) Elevated troponin: Code(s): R79.89 - Other specified abnormal findings of blood chemistry Status: Acute (2) Hypertension: Code(s): I10 - Essential (primary) hypertension Status: Acute (3) Hyperlipidemia: Code(s): E78.5 - Hyperlipidemia, unspecified Status: Acute (4) Cystic mass of pancreas: Code(s): K86.2 - Cyst of pancreas Status: Acute (5) Seizure disorder: Code(s): G40.909 - Epilepsy, unspecified, not intractable, without status epilepticus Status: Acute Plan -sepsis, unknown source so far -hypotension on admission -elevated troponins -cystic lesion of the pancreas, a lesion of liver -history of hypertension -history of diabetes -recent diagnosis of seizure disorder a month ago -in regards to sepsis, patient presents here to the hospital with fever and chills. CT imaging shows a spot in the liver and the pancreas but no pneumonia. Being treated with antibiotics -in regards to troponin elevation, elevated troponins but patient denies chest pain and no ischemic changes on EKG. Obtain echocardiogram to assess. This could be demand ischemia from sepsis. -regards to hepatic lesion and cystic lesion of the pancreas, patient is scheduled to undergo MRI to further define. -in regards to history of hypertension, at home he takes amlodipine, lisinopril- HCTZ but currently on hold due to soft blood pressure low blood pressure on admission. -regards to history of seizures with continue seizure medicine Subjective Date/time seen: 06/27/25 12:46 Review of Systems Review of Systems: All systems reviewed & are unremarkable except as noted in HPI and below Exam Narrative: Alert oriented x3. Not in distress Const: Other: Had fever yesterday HENMT: Other: Denies discharge Eyes: Other: No icterus Neck: Other: Supple Chest: Other: Symmetric lung expansion Resp: Other: Clear to auscultation Cardio: Other: Normal S1-S2 without murmur GI: Other: No tenderness Skin: Other: No rash Neuro: Other: Moving all extremities, alert oriented x3 Extrem: Other: No edema Psych: Other: Normal behavior Objective Data Vital Signs Vital Signs: Vital Signs - 24 hr 06/26/25 14:00 06/26/25 15:51 06/26/25 16:00 Temperature 36.4 C Pulse Rate 78 70 70 Respiratory Rate 16 Blood Pressure 145/67 H Pulse Oximetry 98 06/26/25 18:00 06/26/25 20:00 06/26/25 20:00 Temperature 36.6 C Pulse Rate 85 70 64 Respiratory Rate 26 H Blood Pressure 113/51 L Pulse Oximetry 94 06/26/25 22:00 06/26/25 23:11 06/27/25 00:00 Temperature 36.5 C Pulse Rate 78 66 66 Respiratory Rate 20 Blood Pressure 119/58 L Pulse Oximetry 98 06/27/25 02:00 06/27/25 04:00 06/27/25 04:00 Temperature 36.8 C Pulse Rate 71 79 64 Respiratory Rate 20 Blood Pressure 134/67 Pulse Oximetry 95 06/27/25 06:00 06/27/25 07:59 06/27/25 08:00 Temperature 36.5 C Pulse Rate 65 69 69 Respiratory Rate 16 Blood Pressure 151/71 H Pulse Oximetry 96 06/27/25 10:00 Temperature Pulse Rate 68 Respiratory Rate Blood Pressure Pulse Oximetry Intake/Output Intake/Output: Intake & Output 06/24/25 06/25/25 06/26/25 06/27/25 23:59 23:59 23:59 23:59 Intake Total 3550 3835.9 3650 560 Output Total 360 550 Balance 3550 3475.9 3100 560 Meds/Results Medications: Active Medications Generic Name Dose Route Start Last Admin Trade Name Freq PRN Reason Stop Dose Admin Acetaminophen 650 mg 06/24/25 18:41 06/27/25 02:22 Acetaminophen 325 Mg Tablet PO 650 mg Q4H PRN Administration Mild Pain (1-3) or Fever Amoxicillin/Clavulanate Potassium 1 tablet 06/27/25 10:30 06/27/25 11:00 Amoxicillin/Clavulanate K 875-125 Mg Tab PO 07/03/25 21:01 1 tablet Q12HR SONJA Administration Aspirin 81 mg 06/25/25 08:00 06/27/25 09:11 Aspirin 81 Mg Chewable Tablet PO 81 mg DAILY@0800 SONJA Administration Dextrose 12.5 gm 06/25/25 02:20 Dextrose 50% 25 Gm/50 Ml Syringe IV PUSH PRN PRN Hypoglycemia Protocol Doxycycline Hyclate 100 mg 06/27/25 10:30 06/27/25 11:01 Doxycycline Hyclate 100 Mg Tablet PO 07/03/25 21:01 100 mg Q12HR SONJA Administration Glucagon 1 mg 06/25/25 02:20 Glucagon For Inj 1 Mg Vial IM PRN PRN Hypoglycemia Protocol Glucose 15 gm 06/25/25 02:20 Glucose Oral Gel 15 Gm Of Glucse In 37.5 Gm Tube PO PRN PRN Hypoglycemia Protocol Hydralazine HCl 10 mg 06/25/25 02:20 Hydralazine Hcl 20 Mg/Ml Vial IV PUSH Q8H PRN Blood Pressure - High Dextrose 1,000 mls @ 100 mls/hr 06/25/25 02:20 Dextrose 5% 1,000 Ml IVPB PRN PRN Hypoglycemia Protocol Levetiracetam 500 mg in 100 mls @ 400 mls/hr 06/27/25 09:00 06/27/25 09:12 Keppra Iv IVPB 400 mls/hr Q12HR SONJA Administration Insulin Aspart 2 - 5 units 06/25/25 06:00 06/27/25 05:27 Insulin Aspart (*Bkc) 100 Units/Ml SUB-Q Not Given Q6HR [facility] Protocol Morphine Sulfate 2 mg 06/24/25 18:41 Morphine Sulfate (*Crx) 4 Mg/Ml Inj IV PUSH Q2H PRN Pain Rated 7-10 Ondansetron HCl 4 mg 06/24/25 18:41 Ondansetron Inj 4 Mg/2 Ml Vial IV PUSH Q4H PRN Nausea Perflutren Lipid Microsphere 0 ml 06/25/25 02:19 Perflutren Lipid Microspheres 1.5 Ml Vial Diluted To 10 Ml Total Volume IV PUSH 06/28/25 02:19 ONCE PRN adequate visualization Protocol Radiology Results: ITS Impressions Chest X-Ray 06/24/25 15:19 Impression: No acute cardiopulmonary abnormality. Chest/Abdomen/Pelvis CTA 06/24/25 18:05 IMPRESSION: 1. Complex left lobe liver lesion, no abscess is not excluded. 2. 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 There is no evidence of pancreatitis. 3. Contrast-enhanced MRI is recommended to assess MRCP 06/26/25 06:58 IMPRESSION: 1. Diffuse hepatic steatosis. 2. 2.1 cm cystic mass in left hepatic lobe. The differential diagnosis includes abscess, hemorrhagic cyst, and metastatic disease. 3. 10 mm low-risk cystic lesion of the pancreas, likely benign. Labs Labs: Laboratory Results - last 24 hr 06/26/25 06/26/25 06/27/25 16:51 17:47 00:13 WBC RBC Hgb Hct MCV MCH MCHC RDW Plt Count MPV Immature Gran % (Auto) Neut % (Auto) Lymph % (Auto) [place] % (Auto) Eos % (Auto) Baso % (Auto) Lymph # (Auto) [place] # (Auto) Eos # (Auto) Baso # (Auto) Abs Immat Gran (auto) Absolute Neuts (auto) Absolute Nucleated RBC Band Neutrophils % Nucleated RBC % Platelet Estimate % Immature Plt Fraction Man Cells Schistocytes Sodium Potassium Chloride Carbon Dioxide Anion Gap BUN Creatinine Estim Creat Clear Calc Estimated GFR Glucose POC Capillary Glucose 173 H 107 H Calcium Magnesium Total Bilirubin AST ALT Alkaline Phosphatase Total Protein Albumin Vancomycin Trough 6.1 L 06/27/25 03:53 WBC 4.4 L RBC 4.21 L Hgb 11.6 L D Hct 36.3 L MCV 86.2 MCH 27.6 MCHC 32.0 RDW 14.1 Plt Count 93 L MPV 11.1 H Immature Gran % (Auto) 1.6 H Neut % (Auto) 60.2 Lymph % (Auto) 18.9 [place] % (Auto) 12.0 H Eos % (Auto) 6.4 H Baso % (Auto) 0.9 Lymph # (Auto) 0.82 L [place] # (Auto) 0.5 Eos # (Auto) 0.3 Baso # (Auto) 0.0 Abs Immat Gran (auto) 0.07 H Absolute Neuts (auto) 2.6 Absolute Nucleated RBC 0.000 Band Neutrophils % Not Reportable Nucleated RBC % 0.0 Platelet Estimate Decreased % Immature Plt Fraction 4.1 Man Cells 1+ Schistocytes None seen Sodium 136 L Potassium 3.3 L Chloride 112 H Carbon Dioxide 23 Anion Gap 1 L BUN 12 D Creatinine 0.72 Estim Creat Clear Calc 85 Estimated GFR > 60 Glucose 96 POC Capillary Glucose Calcium 7.3 L Magnesium 2.4 H Total Bilirubin 0.5 AST 52 ALT 51 H Alkaline Phosphatase 58 Total Protein 5.4 L Albumin 2.9 L Vancomycin Trough Quality VTE Prophylaxis VTE prophylaxis: mechanical ordered
== END 2025-06-27 13:13 | disposition home or self-care (01) | DRG 872 ==
LOC: ANHED 18:41 → ANHIMU 20:01
PROVIDERS: Family Medicine; Nurse Practitioner; Admitting Provider Internal Medicine; Emergency Provider Emergency Medicine; PCP Student in an Organized Health Care Education/Training Program; Visit Provider Internal Medicine
DX: A41.9 Sepsis, unspecified organism (principal); K86.2 Cyst of pancreas; I24.89 Other forms of acute ischemic heart disease; I10 Essential (primary) hypertension; E78.5 Hyperlipidemia, unspecified; G40.909 Epilepsy, unspecified, not intractable, without status epilepticus; Z20.822 Contact with and (suspected) exposure to COVID-19; Z79.82 Long term (current) use of aspirin; Z87.891 Personal history of nicotine dependence
CPT/HCPCS: 36415; 36600; 71045; 71046; 71275; 74174; 74177; 74181; 76376; 80048; 80053; 80202; 81001; 81003; 82010; 82565; 82805; 82948; 83036; 83605; 83735; 84145; 84484; 85018; 85025; 85055; 85380; 85610; 85730; 86140; 87040; 87637; 93005; 93306; 96361; 96365; 96366; 96367; 96374; 99284; 99285; A9270; G0378; J0692; J1650; J1885; J1953; J3373; J7030; Q9967